=== PATIENT | female | born 1940 | race Two or more races ===

== ENCOUNTER 2017-01-16 08:28 | Inpatient (IN) | payer MEDICARE, MEDICAID ==
[~2017-01-16] VITALS: Ht 162.6 cm; Wt 93.4 kg
[~2017-01-16 08:28] MED LIST: BENA40TA67 PO; CARV6.252 PO; FURO-144 PO; INSU100I4 SQ; INSU10VI3 SQ; ISOS30TA6 PO; LIRA0.6P SQ; SPIR50TA PO; WARF6TAB5 PO
[2017-01-16] MEDS ORDERED: FUROSEMIDE 40 MG/4 ML VIAL ONE (08:40)
[2017-01-16] MEDS ORDERED: NITROGLYCERIN PACKET 1 GM PACKET ONE (08:40)
[2017-01-16] MEDS ORDERED: NITROGLYCERIN PACKET 1 GM PACKET TD ONE (09:00)
[2017-01-16] MEDS ORDERED: FUROSEMIDE 40 MG/4 ML VIAL IV ONE (09:00)
[2017-01-16] MEDS ORDERED: INSU100I14 SQ (09:02)
[2017-01-16] MEDS ORDERED: GABA-532 PO (09:02)
[2017-01-16] MEDS ORDERED: CARV12.52 PO (09:02)
[2017-01-16] MEDS ORDERED: WARF1TAB6 PO (09:02)
[2017-01-16] MEDS ORDERED: INSU3INS6 SQ (09:02)
[2017-01-16 09:05] LABS: BASOPHILS % (AUTO) 0.3 % (0.0-2.0); EOSINOPHILS # (AUTO) 0.1 /CMM (0.0-0.7); EOSINOPHILS % (AUTO) 1.3 % (0.0-6.0); HEMATOCRIT 34 % (33-45); HEMOGLOBIN 11.3 g/dL (11.5-14.8); LYMPHOCYTES # (AUTO) 0.7 /CMM (0.8-4.8); LYMPHOCYTES % (AUTO) 12.4 % (20.0-44.0); MEAN CORPUSCULAR HEMOGLOBIN 29 PG (26.0-33.0); MEAN CORPUSCULAR HGB CONC 34 g/dl (31.0-36.0); MEAN CORPUSCULAR VOLUME 87 fL (82-100); MONOCYTES # (AUTO) 0.3 /CMM (0.1-1.30); MONOCYTES % (AUTO) 5.1 % (2.0-12.0); NEUTROPHILS # (AUTO) 4.9 /CMM (1.8-8.9); NEUTROPHILS % (AUTO) 80.9 % (43.0-81.0); PLATELET COUNT (AUTO) 141 /CMM (150-450); RDW COEFFICIENT OF VARIATION 14.8 (11.5-15.0); RED BLOOD CELL COUNT(AUTO) 3.85 MIL/uL (4.0-5.2)
[2017-01-16 09:19] LABS: CALCIUM, SERUM 9.2 mg/dL (8.5-10.1); CARBON DIOXIDE 25 mmol/L (21-32); CHLORIDE 106 mmol/L (98-107); GLUCOSE 156 mg/dL (74-106); POTASSIUM 4.3 mmol/L (3.5-5.1); SODIUM SERUM 142 mmol/L (136-145); UREA NITROGEN, BLOOD 34 mg/dL (7-18)
[2017-01-16 09:23] LABS: INR 1.03 (0.87-1.13); PROTHROMBIN TIME 10.7 SECS (9.5-12.7)
[2017-01-16 09:27] LABS: TROPONIN I < 0.017 ng/mL (0.00-0.056)
[2017-01-16 09:32] LABS: ALANINE AMINOTRANSFERASE 28 U/L (12-78); ALBUMIN 3.6 g/dL (3.4-5.0); ALKALINE PHOSPHATASE 56 U/L (46-116); ASPARTATE AMINOTRANSFERASE 21 U/L (15-37); B-TYPE NATRIURETIC PEPTIDE 1291 PG/ML (0-125); BILIRUBIN,DIRECT 0.2 mg/dL (0.0-0.2); BILIRUBIN,TOTAL 0.7 mg/dL (0.2-1.0); TOTAL PROTEIN, SERUM 6.9 g/dL (6.4-8.2)
[2017-01-16 11:10] VITALS: BP 140/50
[2017-01-16] MEDS ORDERED: WARFARIN SODIUM 1 MG TABLET PO SCH (13:00)
[2017-01-16 13:30] LABS: MAGNESIUM 1.9 mg/dL (1.8-2.4)
[2017-01-16 13:44] LABS: THYROID STIMULATING HORMONE 1.752 uIU/mL (0.358-3.74)
[2017-01-16] MEDS: GABAPENTIN 100 MG CAPSULE PO SCH ×2 (15:22→17:11)
[2017-01-16] MEDS: FUROSEMIDE 40 MG TABLET PO SCH (17:11)
[2017-01-16] MEDS: BLOOD SUGAR DIAGNOSTIC 1 EACH STRIP VI SCH ×2 (17:19→22:00)
[2017-01-16] MEDS ORDERED: *INSULIN REGULAR(HUMULIN R)HUM 100 UNIT/ML VIAL SQ PRN (17:30)
[2017-01-16] MEDS ORDERED: DEXTROSE 50%-WATER 50 ML DISP.SYRIN IV PRN (17:30)
[2017-01-16] MEDS: INSULIN REGULAR, HUMAN 100 UNIT/ML 3 ML VIAL SQ PRN (18:32)
[2017-01-16 20:00] VITALS: BP_SYST 148; BP_SYST 156; BP_DIAS 68; BP_DIAS 95
[2017-01-17] VITALS: BP 128/88
[2017-01-17 04:00] VITALS: BP_SYST 102; BP_SYST 161; BP_DIAS 61; BP_DIAS 68
[2017-01-17 05:00] VITALS: BP 161/68
[2017-01-17] MEDS: BLOOD SUGAR DIAGNOSTIC 1 EACH STRIP VI SCH ×2 (06:16→12:22)
[2017-01-17] MEDS: INSULIN REGULAR, HUMAN 100 UNIT/ML 3 ML VIAL SQ PRN ×2 (06:18→12:41)
[2017-01-17 06:34] LABS: BASOPHILS % (AUTO) 0.3 % (0.0-2.0); EOSINOPHILS # (AUTO) 0.2 /CMM (0.0-0.7); EOSINOPHILS % (AUTO) 3.5 % (0.0-6.0); HEMATOCRIT 32 % (33-45); HEMOGLOBIN 10.7 g/dL (11.5-14.8); LYMPHOCYTES # (AUTO) 1.1 /CMM (0.8-4.8); LYMPHOCYTES % (AUTO) 26.2 % (20.0-44.0); MEAN CORPUSCULAR HEMOGLOBIN 30 PG (26.0-33.0); MEAN CORPUSCULAR HGB CONC 34 g/dl (31.0-36.0); MEAN CORPUSCULAR VOLUME 88 fL (82-100); MONOCYTES # (AUTO) 0.4 /CMM (0.1-1.30); MONOCYTES % (AUTO) 9.9 % (2.0-12.0); NEUTROPHILS # (AUTO) 2.6 /CMM (1.8-8.9); NEUTROPHILS % (AUTO) 60.1 % (43.0-81.0); PLATELET COUNT (AUTO) 132 /CMM (150-450); RDW COEFFICIENT OF VARIATION 14.7 (11.5-15.0); RED BLOOD CELL COUNT(AUTO) 3.62 MIL/uL (4.0-5.2); WHITE BLOOD COUNT (AUTO) 4.3 K/uL (4.3-11.0)
[2017-01-17 06:43] LABS: INR 1.05 (0.87-1.13); PROTHROMBIN TIME 10.9 SECS (9.5-12.7)
[2017-01-17 06:47] LABS: CALCIUM, SERUM 8.7 mg/dL (8.5-10.1); CARBON DIOXIDE 28 mmol/L (21-32); CHLORIDE 104 mmol/L (98-107); CREATININE 0.9 mg/dL (0.6-1.3); GLUCOSE 84 mg/dL (74-106); POTASSIUM 4.1 mmol/L (3.5-5.1); SODIUM SERUM 140 mmol/L (136-145); UREA NITROGEN, BLOOD 39 mg/dL (7-18)
[2017-01-17 08:00] VITALS: BP 154/73
[2017-01-17 09:00] VITALS: BP 154/73
[2017-01-17] MEDS ORDERED: SPIRONOLACTONE 25 MG TABLET PO SCH (09:00)
[2017-01-17] MEDS: FUROSEMIDE 40 MG TABLET PO SCH (09:00)
[2017-01-17] MEDS ORDERED: FUROSEMIDE 40 MG TABLET PO SCH (09:00)
[2017-01-17] MEDS ORDERED: ISOSORBIDE MONONITRATE (30MG) 30 MG TAB.SR.24H PO SCH (09:00)
[2017-01-17] MEDS: GABAPENTIN 100 MG CAPSULE PO SCH ×2 (09:00→13:21)
[2017-01-17] MEDS ORDERED: AMLODIPINE BESYLATE 5 MG TABLET PO SCH (09:00)
[2017-01-17] MEDS ORDERED: FUROSEMIDE 20 MG/2 ML VIAL IV SCH (14:00)
[2017-01-17] MEDS ORDERED: BENAZEPRIL HCL 20 MG TABLET PO SCH (17:00)
[2017-01-17] MEDS ORDERED: WARFARIN SODIUM 1 MG TABLET PO SCH (17:00)
[2017-01-18] MEDS ORDERED: FUROSEMIDE 40 MG TABLET PO SCH (09:00)
== END 2017-01-17 15:15 | disposition short-term general hospital (02) | DRG 194 ==
LOC: ER 08:31 → TELE 10:35 → MED 01-17 11:40
PROVIDERS: ADMIT Family Medicine; ATTEND Internal Medicine
DX: I13.0 Hypertensive heart and chronic kidney disease with heart failure and stage 1 through stage 4 chronic kidney disease, or unspecified chronic kidney disease (principal); E11.22 Type 2 diabetes mellitus with diabetic chronic kidney disease; I27.20 Pulmonary hypertension, unspecified; M81.0 Age-related osteoporosis without current pathological fracture; I50.33 Acute on chronic diastolic (congestive) heart failure; I48.2 Chronic atrial fibrillation; Z79.01 Long term (current) use of anticoagulants; N18.9 Chronic kidney disease, unspecified; Z86.73 Personal history of transient ischemic attack (TIA), and cerebral infarction without residual deficits; Z95.0 Presence of cardiac pacemaker; Z86.718 Personal history of other venous thrombosis and embolism; E78.5 Hyperlipidemia, unspecified; D63.8 Anemia in other chronic diseases classified elsewhere; I34.0 Nonrheumatic mitral (valve) insufficiency; Z79.4 Long term (current) use of insulin; Z85.3 Personal history of malignant neoplasm of breast; Z90.11 Acquired absence of right breast and nipple; Z79.899 Other long term (current) drug therapy
CPT/HCPCS: 36415; 71010-TC; 80048-TC; 80076-TC; 82962-TC; 83540-TC; 83735-TC; 83880; 84443-TC; 84484-TC; 85025-TC; 85610-TC; 85730-TC; 87081-TC; A4606; J1815; J1940; Z7610

== ENCOUNTER 2017-05-13 19:34 | Inpatient (IN) | payer MEDICARE, MEDICAID ==
[~2017-05-13] VITALS: Ht 160 cm; Wt 75.3 kg
[~2017-05-13 19:34] MED LIST changes: +CARV12.52 PO; -CARV6.252 PO; +GABA-532 PO; +INSU100I14 SQ; -INSU100I4 SQ; -INSU10VI3 SQ; +INSU3INS6 SQ; -LIRA0.6P SQ; +WARF1TAB86 PO; -WARF6TAB5 PO
--- NOTE | 2017-05-13 19:48 | NUR ---
77 YO FEMALE BB DAUGHTER. PATIENT IS ALERT AND ORIENTED X 3, C/O SOB, GRADUAL ONSET X 1 DYA. PATIENT AMBULATED TO ER BED WITJ STEADY GAIT, SKIN WARM AND DRY, RESP EVEN AND UNLABORED. AWAITING ORDERS FROM PROVIDER, WILL CONTINUE TO MONITOR
--- NOTE | 2017-05-13 19:49 | NUR ---
RAY AT BED SIDE FOR EVAL
[2017-05-13] MEDS ORDERED: FUROSEMIDE 40 MG/4 ML VIAL IV ONE (20:00)
[2017-05-13] MEDS ORDERED: ASPIRIN 81 MG TAB.CHEW PO ONE (20:00)
[2017-05-13] MEDS ORDERED: ASPIRIN 81 MG TAB.CHEW ONE (20:05)
[2017-05-13] MEDS ORDERED: FUROSEMIDE 40 MG/4 ML VIAL ONE (20:05)
[2017-05-13 20:09] LABS: BASOPHILS % (AUTO) 0.2 % (0.0-2.0); EOSINOPHILS # (AUTO) 0.1 /CMM (0.0-0.7); EOSINOPHILS % (AUTO) 2.8 % (0.0-6.0); HEMATOCRIT 30 % (33-45); HEMOGLOBIN 10.6 g/dL (11.5-14.8); LYMPHOCYTES # (AUTO) 0.9 /CMM (0.8-4.8); LYMPHOCYTES % (AUTO) 18.3 % (20.0-44.0); MEAN CORPUSCULAR HEMOGLOBIN 30 PG (26.0-33.0); MEAN CORPUSCULAR HGB CONC 36 g/dl (31.0-36.0); MEAN CORPUSCULAR VOLUME 84 fL (82-100); MONOCYTES # (AUTO) 0.5 /CMM (0.1-1.30); MONOCYTES % (AUTO) 10.6 % (2.0-12.0); NEUTROPHILS # (AUTO) 3.2 /CMM (1.8-8.9); NEUTROPHILS % (AUTO) 68.1 % (43.0-81.0); PLATELET COUNT (AUTO) 161 /CMM (150-450); RDW COEFFICIENT OF VARIATION 13.7 (11.5-15.0); RED BLOOD CELL COUNT(AUTO) 3.55 MIL/uL (4.0-5.2); WHITE BLOOD COUNT (AUTO) 4.7 K/uL (4.3-11.0)
--- NOTE | 2017-05-13 20:14 | NUR ---
MEDICATED OT ORTDERED
[2017-05-13 20:26] LABS: INR 1.06 (0.85-1.15)
[2017-05-13 20:30] LABS: TROPONIN I < 0.017 ng/mL (0.00-0.056)
[2017-05-13 20:39] LABS: CALCIUM, SERUM 9.3 mg/dL (8.5-10.1); CARBON DIOXIDE 22 mmol/L (21-32); CHLORIDE 105 mmol/L (98-107); CREATININE 1.2 mg/dL (0.6-1.3); GLUCOSE 236 mg/dL (74-106); POTASSIUM 5.1 mmol/L (3.5-5.1); SODIUM SERUM 137 mmol/L (136-145); UREA NITROGEN, BLOOD 40 mg/dL (7-18)
[2017-05-13 20:54] LABS: ALANINE AMINOTRANSFERASE 17 U/L (12-78); ALBUMIN 3.6 g/dL (3.4-5.0); ALKALINE PHOSPHATASE 64 U/L (46-116); ASPARTATE AMINOTRANSFERASE 17 U/L (15-37); B-TYPE NATRIURETIC PEPTIDE 1815 PG/ML (0-125); BILIRUBIN,DIRECT 0.2 mg/dL (0.0-0.2); BILIRUBIN,TOTAL 0.4 mg/dL (0.2-1.0); TOTAL PROTEIN, SERUM 7.3 g/dL (6.4-8.2)
--- NOTE | 2017-05-13 20:54 | NUR ---
VITAL SIGNS UPDATED.
--- NOTE | 2017-05-13 21:40 | NUR ---
CALLED DR AGOSTO LEFT A VOICEMAIL.
--- NOTE | 2017-05-13 22:20 | NUR ---
REPORT RECEIVED FROM SUNDEEP CHAMBERS.
--- NOTE | 2017-05-13 22:25 | NUR ---
REPORT WAS GIVEN TO ELOISA URBANO FOR RILEY
[2017-05-13 22:30] VITALS: BP 185/79
--- NOTE | 2017-05-13 22:30 | NUR ---
EDUCATION SALES CONSULTANT OPENING NOTE RECEIVED PATIENT FROM ER, WAS TRANSPORTED ON A GURNEY, WAS ABLE TO AMBULATE TO BED FROM THE BEDROOM DOOR. PATIENT IS IN STABLE CONDITION, ALERT ORIENTED X4, PORTUGUESE SPEAKING, PATIENT WAS ASSISTED INTO BED AND WAS MADE COMFORTABLE. PATIENT REPORTED BEING SLIGHTLY SOB. WAS PLACED ON 2L OXYGEN VIA NC. DENIES PAIN. VITAL SIGNS TAKEN: BP: 185/79, HR:61, RR:18, TEMP: 98.2, O2SAT: 97%. NON-PITTING EDEMA ON BILATERAL LOWER EXTREMITIES. PATIENT WAS PLACED ON TELE MONITORING ORDERED. FAMILY AT BEDSIDE, ALL BELONGINGS IN PLACE. WILL ADMIT PATIENT PER MD ORDERS AND CONTINUE TO MONITOR.
--- NOTE | 2017-05-13 22:32 | NUR ---
TRANSPORTED PT TO TELE BED WITHOUT INCIDENT
[2017-05-13] MEDS ORDERED: ACETAMINOPHEN 650 MG/20.3 ML UDC PO PRN (23:00)
[2017-05-13] MEDS ORDERED: DEXTROSE 50%-WATER 50 ML DISP.SYRIN IV PRN (23:00)
[2017-05-13] MEDS ORDERED: CLONIDINE HCL 0.1 MG TABLET PO PRN (23:00)
[2017-05-13] MEDS ORDERED: ZOLPIDEM TARTRATE 5 MG TABLET PO PRN (23:00)
--- NOTE | 2017-05-13 23:24 | NUR ---
SPOKE TO DR. AGOSTO TO CLARIFY THE PARAMETERS FOR CLONIDINE, TO BE GIVEN FOR SBP>160mmHg. RECEIVED NEW ORDER FOR ACCU-CHECK ACHS WITH MODERATE SLIDING SCALE.
[2017-05-13] MEDS ORDERED: BLOOD SUGAR DIAGNOSTIC 1 EACH STRIP VI SCH (23:30)
[2017-05-13] MEDS: BLOOD SUGAR DIAGNOSTIC 1 EACH STRIP VI SCH (23:31)
[2017-05-13] MEDS: *INSULIN REGULAR(HUMULIN R)HUM 100 UNIT/ML VIAL SQ PRN (23:47)
[2017-05-14] VITALS (7 sets, daily range): BP systolic 137–185; BP diastolic 54–90
[2017-05-14 06:49] LABS: BASOPHILS % (AUTO) 0.4 % (0.0-2.0); EOSINOPHILS # (AUTO) 0.1 /CMM (0.0-0.7); EOSINOPHILS % (AUTO) 1.7 % (0.0-6.0); HEMATOCRIT 27 % (33-45); HEMOGLOBIN 9.3 g/dL (11.5-14.8); LYMPHOCYTES % (AUTO) 24.5 % (20.0-44.0); MEAN CORPUSCULAR HEMOGLOBIN 30 PG (26.0-33.0); MEAN CORPUSCULAR HGB CONC 34 g/dl (31.0-36.0); MEAN CORPUSCULAR VOLUME 87 fL (82-100); MONOCYTES # (AUTO) 0.5 /CMM (0.1-1.30); MONOCYTES % (AUTO) 12.7 % (2.0-12.0); NEUTROPHILS # (AUTO) 2.4 /CMM (1.8-8.9); NEUTROPHILS % (AUTO) 60.7 % (43.0-81.0); PLATELET COUNT (AUTO) 154 /CMM (150-450); RDW COEFFICIENT OF VARIATION 14.7 (11.5-15.0); RED BLOOD CELL COUNT(AUTO) 3.12 MIL/uL (4.0-5.2)
[2017-05-14 07:09] LABS: THYROID STIMULATING HORMONE 2.05 uIU/mL (0.358-3.74)
--- NOTE | 2017-05-14 07:25 | NUR ---
FOURTH GRADE TEACHER NOTES PATIENT BLOOD SUGAR CHECKED WITH READING AT 64. CRANBERRY JUICE GIVEN, BREAKFAST AT BEDSIDE. AM NURSE AWARE, SHE WILL RECHECK IN 10-15 MINUTES.
--- NOTE | 2017-05-14 07:30 | NUR ---
HAND WRAPPER OPERATOR CLOSING NOTE PATIENT IN BED, ASLEEP, AROUSED EASILY WITH VERBAL STIMULI, ORIENTED X4. ON 2L OXYGEN VIA NC, DENIES SOB AT THIS TIME, RESPIRATIONS EVEN AND UNLABORED, NO SIGN OF ACUTE DISTRESS OR DISCOMFORT. HOB ELEVATED. ON TELE MONITOR V-PACING IN 60S. LEFT WRIST SL 20G, PATENT AND INTACT. PATIENT KEPT CLEAN AND COMFORTABLE, ALL NEEDS ATTENDED, SAFETY MEASURES IN PLACE, BED IN LOW LOCKED POSITION, CALL LIGHT WITHIN EASY REACH, SIDE RAILS UP X2. WILL ENDORSE TO AM NURSE FOR CONTINUITY OF CARE.
--- NOTE | 2017-05-14 07:40 | NUR ---
LEAVE SPECIALIST OPENING NOTE PATIENT IS ALERT AND ORIENTED x4. NO PAIN AT THIS TIME. NO SOB OR DISTRESS NOTED. CALL LIGHT WITHIN REACH. SAFETY MEASURES IMPLEMENTED. ABLE TO COMMUNICATE NEEDS. IV INTACT AND PATENT NO REDNESS OR SWELLING NOTED. BLOOD SUGARS TO BE MONITORED THROUGHOUT SHIFT. LABS PENDING. WILL CONTINUE TO MONITOR
[2017-05-14] MEDS: BLOOD SUGAR DIAGNOSTIC 1 EACH STRIP VI SCH ×4 (07:45→21:09)
--- NOTE | 2017-05-14 07:45 | NUR ---
MILKING MACHINE OPERATOR NOTE RECHECKED PATIENT'S BLOOD SUGAR AFTER CRANBERRY JUICE AND BREAKFAST WAS GIVEN. BLOOD SUGAR NOW 172. MD AWARE AND CHARGE NURSE AWARE. WILL CONTINUE TO MONITOR
[2017-05-14] MEDS: FUROSEMIDE 40 MG/4 ML VIAL IV SCH ×2 (08:39→16:39)
[2017-05-14] MEDS ORDERED: AMLODIPINE BESYLATE 5 MG TABLET PO SCH (09:00)
[2017-05-14] MEDS: GABAPENTIN 100 MG CAPSULE PO SCH ×3 (09:49→16:39)
[2017-05-14] MEDS: CARVEDILOL 12.5 MG TABLET PO SCH ×2 (09:50→16:39)
[2017-05-14] MEDS: INSULIN REGULAR, HUMAN 100 UNIT/ML 3 ML VIAL SQ PRN (11:56)
--- NOTE | 2017-05-14 12:00 | NUR ---
SUPERVISOR GAME FARM NOTE BLOOD SUGAR CHECKED-229. 6 UNITS OF INSULIN GIVEN FOOD AT BEDSIDE. WILL CONTINUE TO MONITOR FOR HYPO/HYPERGLYEMIA S/S.
--- NOTE | 2017-05-14 16:51 | NUR ---
PROBATION WORKER NOTE PATIENTS BLOOD SUGAR CHECKED-133 PATIENT REFUSED INSULIN AT THIS TIME. EXPLAINED RISKS AND BENEFITS AND SIGNS AND SYMPTOMS OF HYPO/HYPERGLYCEMIA
[2017-05-14] MEDS ORDERED: WARFARIN SODIUM 1 MG TABLET PO SCH (17:00)
--- NOTE | 2017-05-14 18:48 | NUR ---
MS RN CLOSING NOTE PATIENT IS RESTING COMFORTABLY AT THIS TIME. NO SOB OR DISTRESS NOTED. CALL LIGHT WITHIN REACH AT ALL TIMES. SAFETY MEASURES IMPLEMENTED. ALL DUE MEDICATIONS GIVEN ORDERED. ALL NURSING CARE NEEDS ATTENDED TO NEEDED. ABLE TO COMMUNICATE NEEDS. IV INTACT AND PATENT NO REDNESS OR SWELLING NOTED. BLOOD SUGAR MONITORED THROUGHOUT SHIFT, INSULIN GIVEN NEEDED. ON 2LMIN OF OXYGEN VIA NASAL CANNULA TOLERATING WELL. LABS IN AM, PENDING WOUND CARE CONSULT. WILL ENDORSE TO MACHINIST/MACHINE BUILDER NURSE FOR RILEY
--- NOTE | 2017-05-14 20:00 | NUR ---
MS/RN OPENING NOTE 'PATIENT IN BED, ALERT, ORIENTED X3, ABLE TO VERBALIZE NEEDS, RESPIRATIONS EVEN , REQUIRING FREQUENT REMINDER TO KEEP OXYGEN ON FOR PROPER BREATHING AND PREVENT SOB. ABLE TO WALK WITH SUPERVISION TO THE BATHROOM, LEFT WRIST IV ON PATENT, AM RN ENDORSE PLAN OF CARE WILL CONTINUE CARE AND MONITOR ANY CHANGES. BED IN LOCK POSITION, CALL LIGHTS WIHTIN REACH, KEEP PATIENT COMFORTABLE, ALL NEEDS WITHIN REACH.INSTRUCTED TO USE CALL LIGHT FOR ASSISTANCE.
[2017-05-14] MEDS: *INSULIN REGULAR(HUMULIN R)HUM 100 UNIT/ML VIAL SQ PRN (21:16)
[2017-05-15] MEDS: BLOOD SUGAR DIAGNOSTIC 1 EACH STRIP VI SCH ×4 (06:01→22:29)
--- NOTE | 2017-05-15 06:44 | NUR ---
312-1 MS/RN NOTES PATIENT ABLE TO SLEEP DURING THE NIGHT, KEEP COMFORTABLE, BED IN LOCK POSITION, CALL LIGHTS WITHIN REACH, MONITOR S/S OF HYPO/HYPERGLYCEMIA.ON OXYGEN AT 2L VIA NASAL CANULA, WILL ENDORSE TO AM RN FOR RILEY.
[2017-05-15 06:59] LABS: BASOPHILS % (AUTO) 0.3 % (0.0-2.0); EOSINOPHILS # (AUTO) 0.1 /CMM (0.0-0.7); EOSINOPHILS % (AUTO) 3.2 % (0.0-6.0); HEMATOCRIT 29 % (33-45); HEMOGLOBIN 9.7 g/dL (11.5-14.8); LYMPHOCYTES % (AUTO) 25.8 % (20.0-44.0); MEAN CORPUSCULAR HEMOGLOBIN 29 PG (26.0-33.0); MEAN CORPUSCULAR HGB CONC 34 g/dl (31.0-36.0); MEAN CORPUSCULAR VOLUME 87 fL (82-100); MONOCYTES # (AUTO) 0.4 /CMM (0.1-1.30); MONOCYTES % (AUTO) 11.5 % (2.0-12.0); NEUTROPHILS # (AUTO) 2.2 /CMM (1.8-8.9); NEUTROPHILS % (AUTO) 59.2 % (43.0-81.0); PLATELET COUNT (AUTO) 158 /CMM (150-450); RDW COEFFICIENT OF VARIATION 14.6 (11.5-15.0); RED BLOOD CELL COUNT(AUTO) 3.32 MIL/uL (4.0-5.2); WHITE BLOOD COUNT (AUTO) 3.8 K/uL (4.3-11.0)
[2017-05-15 07:18] LABS: CALCIUM, SERUM 8.5 mg/dL (8.5-10.1); CARBON DIOXIDE 27 mmol/L (21-32); CHLORIDE 104 mmol/L (98-107); CREATININE 1.2 mg/dL (0.6-1.3); GLUCOSE 126 mg/dL (74-106); POTASSIUM 4.4 mmol/L (3.5-5.1); SODIUM SERUM 139 mmol/L (136-145); UREA NITROGEN, BLOOD 34 mg/dL (7-18)
--- NOTE | 2017-05-15 07:41 | NUR ---
MS/RN OPENING NOTE PATIENT IN BED IN STABLE CONDITION. A/O X 4. NO SIGNS OF ACUTE DISTRESS. NO COMPLAIN OF PAIN OR DISCOMFORT. ALL NEEDS ATTENDED TO. CALL LIGHT WITHIN REACH. WILL CONTINUE TO MONITOR TO ENSURE SAFETY.
[2017-05-15 08:00] VITALS: BP 133/60
[2017-05-15] MEDS: GABAPENTIN 100 MG CAPSULE PO SCH ×3 (08:31→16:05)
[2017-05-15] MEDS: CARVEDILOL 12.5 MG TABLET PO SCH ×2 (08:31→16:05)
[2017-05-15] MEDS: FUROSEMIDE 40 MG/4 ML VIAL IV SCH ×4 (08:31→20:22)
[2017-05-15] MEDS: AMLODIPINE BESYLATE 5 MG TABLET PO SCH (08:32)
[2017-05-15 09:00] LABS: INR 1.04 (0.87-1.13)
--- NOTE | 2017-05-15 09:30 | NUR ---
MS/RN SPOKE WITH DR AGOSTO RECEIVED CALL FROM DR AGOSTO AND PER DR AGOSTO PATIENT IS MEDICAL AND NOT [facility] THEREFORE TRANSFER SERVICES TO [facility]. DR [place] AWARE.
[2017-05-15] MEDS: INSULIN REGULAR, HUMAN 100 UNIT/ML 3 ML VIAL SQ PRN ×2 (11:58→17:28)
[2017-05-15 16:00] VITALS: BP 127/68
[2017-05-15] MEDS: WARFARIN SODIUM 5 MG TABLET PO SCH (16:05)
--- NOTE | 2017-05-15 18:20 | NUR ---
MS/RN CLOSING NOTE PATIENT IN BED IN STABLE CONDITION. A/O X 4, BANGLADESHI SPEAKING. NO SIGNS OF ACUTE DISTRESS. NO COMPLAIN OF PAIN OR DISCOMFORT. ALL NEEDS ATTENDED TO. CALL LIGHT WITHIN REACH. WILL ENDORSE TO NEXT SHIFT FOR CONTINUITY OF CARE.
--- NOTE | 2017-05-15 19:30 | NUR ---
MS RN NOTE: PATIENT RESTING IN BED, FAMILY AT BEDSIDE. BREATHING EVEN AND UNLABORED, NO SOB NOTED. IV TO LEFT WRIST IN PLACE. PATIENT TO RECEIVE 3RD DOSE OF LASIX 40MG IV PER MD ORDER. INSTRUCTED PATIENT THAT SHE WILL BE USING THE RESROOM MORE FREQUENT AND TO ASK FOR ASSISTANCE OR USE WALKER WHEN GOING TO BATHROOM Addendum: 05/15/17 at 2007 by EDUIN LOPEZ RN BED LOCKED AND IN LOWEST POSITION, CALL LIGHT IN REACH WILL CONTINUE TO MONITOR.
[2017-05-15 20:18] VITALS: BP 125/54
--- NOTE | 2017-05-15 22:30 | NUR ---
MS RN NOTE: PATIENT BLOOD SUGAR LEVEL 151MG/DL, PATIENT TO RECEIVE 2 UNITS OF INSULIN PER SLIDING SCALE. NO S/S HYPER/HYPOGLYCEMIA NOTED. WILL CONTINUE TO MONITOR.
[2017-05-15] MEDS: *INSULIN REGULAR(HUMULIN R)HUM 100 UNIT/ML VIAL SQ PRN (22:35)
--- NOTE | 2017-05-16 06:20 | NUR ---
MS RN NOTE: PATIENT RESTING IN BED, NO ACUTE DISTRESS NOTED. BREATHING EVEN AND UNLABORED, NO SOB NOTED. IV TO LEFT WRIST IN PLACE. BLOOD SUGAR LEVEL 143 MG/DL, PATIENT TO RECEIVE 2 UNITS OF INSULIN PER SLIDING SCALE. NO S/S OF HYPER/HYPOGLYCEMIA NOTED. BED LOCKED AND IN LOWEST POSITION, CALL LIGHT IN REACH. WILL ENDORSE TO DAY NURSE TO CONTINUE WITH PLAN OF CARE.
[2017-05-16 06:29] LABS: BASOPHILS % (AUTO) 0.4 % (0.0-2.0); EOSINOPHILS # (AUTO) 0.1 /CMM (0.0-0.7); EOSINOPHILS % (AUTO) 1.7 % (0.0-6.0); HEMATOCRIT 29 % (33-45); HEMOGLOBIN 10.1 g/dL (11.5-14.8); LYMPHOCYTES # (AUTO) 1.1 /CMM (0.8-4.8); LYMPHOCYTES % (AUTO) 24.4 % (20.0-44.0); MEAN CORPUSCULAR HEMOGLOBIN 30 PG (26.0-33.0); MEAN CORPUSCULAR HGB CONC 35 g/dl (31.0-36.0); MEAN CORPUSCULAR VOLUME 87 fL (82-100); MONOCYTES # (AUTO) 0.6 /CMM (0.1-1.30); MONOCYTES % (AUTO) 12.6 % (2.0-12.0); NEUTROPHILS # (AUTO) 2.9 /CMM (1.8-8.9); NEUTROPHILS % (AUTO) 60.9 % (43.0-81.0); PLATELET COUNT (AUTO) 165 /CMM (150-450); RDW COEFFICIENT OF VARIATION 13.9 (11.5-15.0); RED BLOOD CELL COUNT(AUTO) 3.39 MIL/uL (4.0-5.2); WHITE BLOOD COUNT (AUTO) 4.7 K/uL (4.3-11.0)
[2017-05-16 06:36] LABS: INR 1.02 (0.87-1.13)
[2017-05-16] MEDS: BLOOD SUGAR DIAGNOSTIC 1 EACH STRIP VI SCH ×4 (06:36→22:20)
[2017-05-16] MEDS: INSULIN REGULAR, HUMAN 100 UNIT/ML 3 ML VIAL SQ PRN ×3 (06:37→16:48)
[2017-05-16 06:43] LABS: ALANINE AMINOTRANSFERASE 17 U/L (12-78); ALBUMIN 3.3 g/dL (3.4-5.0); ALKALINE PHOSPHATASE 47 U/L (46-116); ASPARTATE AMINOTRANSFERASE 13 U/L (15-37); BILIRUBIN,TOTAL 0.4 mg/dL (0.2-1.0); CALCIUM, SERUM 8.9 mg/dL (8.5-10.1); CARBON DIOXIDE 29 mmol/L (21-32); CHLORIDE 101 mmol/L (98-107); CREATININE 1.2 mg/dL (0.6-1.3); GLUCOSE 144 mg/dL (74-106); MAGNESIUM 1.5 mg/dL (1.8-2.4); PHOSPHORUS 4.4 mg/dL (2.5-4.9); POTASSIUM 4.2 mmol/L (3.5-5.1); SODIUM SERUM 140 mmol/L (136-145); TOTAL PROTEIN, SERUM 6.8 g/dL (6.4-8.2); UREA NITROGEN, BLOOD 41 mg/dL (7-18)
[2017-05-16 08:00] VITALS: BP 132/70
--- NOTE | 2017-05-16 08:00 | NUR ---
MS RN NOTES PATIENT IN BED RESTING NO SOB OR ACUTE DISTRESS NOTED. PERIPHERAL IV INTACT PATENT ON LEFT WRIST. BED IN LOW LOCKED POSITION. CALL LIGHT WITHIN REACH. WILL CONTINUE TO MONITOR.
[2017-05-16] MEDS: CARVEDILOL 12.5 MG TABLET PO SCH ×2 (09:25→16:42)
[2017-05-16] MEDS: GABAPENTIN 100 MG CAPSULE PO SCH ×3 (09:25→16:42)
[2017-05-16] MEDS: AMLODIPINE BESYLATE 5 MG TABLET PO SCH (09:26)
--- NOTE | 2017-05-16 10:00 | NUR ---
MS RN NOTES PATIENT SEEN AND EVALUATED BY DR. PEDRO ORDERS NOTED AND CARRIED OUT.
--- NOTE | 2017-05-16 10:28 | NUR ---
WOUND CARE CONSULT: PT IS AMBULATORY AND CONTINENT WITH CURRENT BOB SCORE OF 21. SLIGHT REDNESS TO RT ANTERIOR LOWER LEG WITH PROMINENT VEINS NOTED. PER PT REDNESS IS RESOLVING. DEFER TO . WILL SEE PRN. Addendum: 05/16/17 at 1029 by FLO HANDY WNDNU Amended: Links added.
[2017-05-16] MEDS ORDERED: Z GUARD REMEDY 2 OZ OINT TP PRN (10:30)
[2017-05-16] MEDS: Magnesium 1GM/D5W 100ML PREMIX 100 ML IV SCH ×2 (10:52→12:26)
[2017-05-16] MEDS: FUROSEMIDE 100 MG/10 ML VIAL IV SCH ×3 (10:52→19:21)
[2017-05-16 16:00] VITALS: BP 135/65
[2017-05-16] MEDS: WARFARIN SODIUM 5 MG TABLET PO SCH (16:43)
--- NOTE | 2017-05-16 18:18 | NUR ---
MS RN NOTES PATIENT IN BED RESTING NO SOB OR ACUTE DISTRESS NOTED. ALL DUE MEDICATIONS ADMINISTERED. ALL NEEDS MET. PERIPHERAL IV INTACT PATENT. WILL ENDORSE TO PM SHIFT RILEY.
--- NOTE | 2017-05-16 19:30 | NUR ---
MS/RN RECEIVE PATIENT AWAKE, ALERT, ORIENTED, COMFORTABLE, NO C/O PAIN, NO DISTRESS NOTED,CALL LIGHT IN REACH. WILL MONITOR.
[2017-05-16 20:34] VITALS: BP 103/44
--- NOTE | 2017-05-16 21:30 | NUR ---
MS/RN BLOOD SUGAR 98, APPLE JUICE AND JELO WAS GIVEN PER PATIENT'S REQUEST. WILL MONITOR.
--- NOTE | 2017-05-16 23:00 | NUR ---
MS/RN PATIENT IS SLEEPING AT THIS TIME, EASILY AROUSABLE, APPEAR COMFORTABLE, NO SIGNS OF DISTRESS NOTED, CALL LIGHT IN REACH. WILL CONTINUE TO MONITOR.
[2017-05-17] MEDS: INSULIN REGULAR, HUMAN 100 UNIT/ML 3 ML VIAL SQ PRN ×3 (06:36→18:05)
[2017-05-17] MEDS: BLOOD SUGAR DIAGNOSTIC 1 EACH STRIP VI SCH ×4 (06:39→21:33)
--- NOTE | 2017-05-17 06:52 | NUR ---
MS/RN PATIENT AWAKE, COMFORTABLE,NO DISTRESS NOTED, ALL NEEDS ATTENDED AT THIS TIME. WILL CONTINUE TO MONITOR.
[2017-05-17 07:17] LABS: BASOPHILS % (AUTO) 0.5 % (0.0-2.0); EOSINOPHILS # (AUTO) 0.2 /CMM (0.0-0.7); EOSINOPHILS % (AUTO) 3.6 % (0.0-6.0); HEMATOCRIT 31 % (33-45); HEMOGLOBIN 10.6 g/dL (11.5-14.8); LYMPHOCYTES # (AUTO) 1.1 /CMM (0.8-4.8); LYMPHOCYTES % (AUTO) 22.7 % (20.0-44.0); MEAN CORPUSCULAR HEMOGLOBIN 29 PG (26.0-33.0); MEAN CORPUSCULAR HGB CONC 34 g/dl (31.0-36.0); MEAN CORPUSCULAR VOLUME 86 fL (82-100); MONOCYTES # (AUTO) 0.5 /CMM (0.1-1.30); NEUTROPHILS % (AUTO) 62.2 % (43.0-81.0); PLATELET COUNT (AUTO) 178 /CMM (150-450); RDW COEFFICIENT OF VARIATION 14.2 (11.5-15.0); RED BLOOD CELL COUNT(AUTO) 3.62 MIL/uL (4.0-5.2); WHITE BLOOD COUNT (AUTO) 4.9 K/uL (4.3-11.0)
[2017-05-17 07:35] LABS: ALANINE AMINOTRANSFERASE 15 U/L (12-78); ALBUMIN 3.4 g/dL (3.4-5.0); ALKALINE PHOSPHATASE 51 U/L (46-116); ASPARTATE AMINOTRANSFERASE 12 U/L (15-37); BILIRUBIN,TOTAL 0.5 mg/dL (0.2-1.0); CALCIUM, SERUM 8.8 mg/dL (8.5-10.1); CARBON DIOXIDE 30 mmol/L (21-32); CHLORIDE 100 mmol/L (98-107); CREATININE 1.4 mg/dL (0.6-1.3); GLUCOSE 165 mg/dL (74-106); PHOSPHORUS 4.5 mg/dL (2.5-4.9); SODIUM SERUM 139 mmol/L (136-145); TOTAL PROTEIN, SERUM 7.1 g/dL (6.4-8.2); UREA NITROGEN, BLOOD 52 mg/dL (7-18)
[2017-05-17 08:00] VITALS: BP 119/55
[2017-05-17 08:49] LABS: INR 1.03 (0.87-1.13)
[2017-05-17] MEDS: FUROSEMIDE 80 MG TABLET PO SCH (09:29)
[2017-05-17] MEDS: CARVEDILOL 12.5 MG TABLET PO SCH ×2 (09:29→17:00)
[2017-05-17] MEDS: GABAPENTIN 100 MG CAPSULE PO SCH ×3 (09:29→17:21)
[2017-05-17] MEDS: AMLODIPINE BESYLATE 5 MG TABLET PO SCH (10:30)
[2017-05-17 16:00] VITALS: BP 119/51
[2017-05-17] MEDS: WARFARIN SODIUM 5 MG TABLET PO SCH (17:21)
--- NOTE | 2017-05-17 19:30 | NUR ---
RN NOTES: PATIENT AOX4, ARGENTINE SPEAKING, UNDERSTANDS SOME ITALIAN.PATIENT STABLE THROUGHOUT SHIFT. DENIES PAIN AT THE MOMENT. ON ROOM AIR DURING SHIFT TOLERATED WELL WITH 93-96%. AMBULATED WELL WITH NO ADVERSE EFFECTS. IV SITE ON LEFT WRIST GAUGE 20 PATENT AND INTACT. PATIENT KEPT CLEAN AND COMFORTABLE DURING SHIFT. BED IN LOWEST LOCKED POSITION. CALL LIGHT WITHIN REACH. DISCUSSED WITH DAUGHTER IN LAW, MALACHI, DISCHARGE PLANNING TODAY. ENDORSED TO NEXT SHIFT
[2017-05-17 20:00] VITALS: BP 151/67
--- NOTE | 2017-05-17 20:00 | NUR ---
MS/RN RECEIVE PATIENT AWAKE, ALERT, ORIENTED, COMFORTABLE, NO C/O PAIN, NO DISTRESS NOTED, CALL LIGHT IN REACH. WILL MONITOR.
[2017-05-18] MEDS: INSULIN REGULAR, HUMAN 100 UNIT/ML 3 ML VIAL SQ PRN ×3 (06:38→16:38)
[2017-05-18] MEDS: BLOOD SUGAR DIAGNOSTIC 1 EACH STRIP VI SCH ×3 (06:48→16:42)
--- NOTE | 2017-05-18 07:00 | NUR ---
MS/RN PATIENT IS AWAKE, ALERT, COMFORTABLE, NO CHANGE IN CONDITION. HAD A GOOD SLEEP THE WHOLE SHIFT. ALL NEEDS ATTENDED. WILL CONTINUE TO MONITOR.
--- NOTE | 2017-05-18 07:30 | NUR ---
RN NOTES PATIENT AOX4, ESTONIAN SPEAKING, UNDERSTANDS SOME ERITREAN. DENIES PAIN AT THE MOMENT. ON ROOM AIR, RESPIRATIONS EVEN AND UNLABORED. IV SITE ON LEFT WRIST GAUGE 20 PATENT AND INTACT NO REDNESS OR INFILTRATION NOTED. PATIENT KEPT CLEAN AND COMFORTABLE. BED IN LOWEST LOCKED POSITION. CALL LIGHT WITHIN REACH. WILL CONTINUE TO MONITOR
[2017-05-18 08:00] VITALS: BP 127/64
[2017-05-18] MEDS: FUROSEMIDE 80 MG TABLET PO SCH (08:42)
[2017-05-18] MEDS: AMLODIPINE BESYLATE 5 MG TABLET PO SCH (08:42)
[2017-05-18] MEDS: GABAPENTIN 100 MG CAPSULE PO SCH ×3 (08:42→16:33)
[2017-05-18 08:48] VITALS: BP 127/64
[2017-05-18 08:48] LABS: INR 1.02 (0.87-1.13)
[2017-05-18] MEDS: CARVEDILOL 12.5 MG TABLET PO SCH ×2 (09:00→16:36)
[2017-05-18] MEDS ORDERED: SENNOSIDES/DOCUSATE SODIUM 1 TAB TABLET PO PRN (10:30)
[2017-05-18 16:17] VITALS: BP 132/54
[2017-05-18] MEDS: WARFARIN SODIUM 5 MG TABLET PO SCH (16:39)
--- NOTE | 2017-05-18 18:32 | NUR ---
RN NOTES RECEIVED ORDERS FROM ROMIE LEE, PER CHILD DAY CARE TEACHER MAY DC PT HOME TODAY WILL EXPLAIN TO PT AND ASSIST WITH DISCHARGE PROCESS
--- NOTE | 2017-05-18 18:33 | NUR ---
RN CLOSING NOTES PATIENT AOX4, ARABIC SPEAKING, UNDERSTANDS SOME WOLOF. DENIES PAIN AT THE MOMENT. ON ROOM AIR, RESPIRATIONS EVEN AND UNLABORED. IV SITE ON LEFT WRIST GAUGE 20 PATENT AND INTACT NO REDNESS OR INFILTRATION NOTED. PATIENT KEPT CLEAN AND COMFORTABLE. BED IN LOWEST LOCKED POSITION. CALL LIGHT WITHIN REACH. WILL CONTINUE TO MONITOR AND ENDORSE TO NEXT SHIFT FOR CONTINUITY OF CARE
--- NOTE | 2017-05-18 19:40 | NUR ---
MS RN OPENING NOTE RECEIVED PATIENT WITH DISCHARGE ORDER, SITTING ON THE BEDSIDE, PREPARED TO BE PICKED UP BY THE FAMILY. ALERT ORIENTED X4, ON ROOM AIR, TOLERATING WELL. DENIES SOB AND PAIN AT THIS TIME. RESPIRATIONS EVEN AND UNLABORED, NO APPARENT DISTRESS OR DISCOMFORT NOTED AT THIS TIME. PATIENT IS AMBULATORY WITH STEADY GAIT. L WRIST 20G SL. PATENT AND INTACT. PATIENT IN STABLE CONDITION, SAFETY MEASURES IN PLACE, BED IN LOW LOCKED POSITION, SIDE RAILS UP X2. CALL LIGHT WITHIN EASY REACH. WILL CONTINUE TO MONITOR.
[2017-05-18 20:00] VITALS: BP 118/56
--- NOTE | 2017-05-18 20:30 | NUR ---
MS RN NOTE PATIENT IS READY TO BE DISCHARGE, FAMILY PRESENT FOR CARAMEL CANDY MAKER HELPER. PATIENT IS STABLE, VITAL SIGNS STABLE: 118/56, HR 60, RR 20, TEMP 98.1, O2SAT 95%. ALERT ORIENTED X4, ABLE TO AMBULATE, DISCHARGE INSTRUCTIONS GIVEN, VALUABLES WERE CHECKED AND COUNTED WITH THE PATIENT, PAPERS SIGNED, COPIES PROVIDED TO PATIENT. L WRIST SL REMOVED. PATIENT WAS ESCORTED FROM THE UNIT ON WHEELCHAIR WITH THE ASSISTANCE OF THE BANDER AND CELLOPHANER MACHINE HELPER.
== END 2017-05-18 20:45 | disposition home or self-care (01) | DRG 291 ==
LOC: ER 19:35 → TELE 22:15 → MED 05-14 20:05
PROVIDERS: ADMIT Internal Medicine; ATTEND Internal Medicine
DX: I11.0 Hypertensive heart disease with heart failure (principal); N17.0 Acute kidney failure with tubular necrosis; J96.01 Acute respiratory failure with hypoxia; I27.20 Pulmonary hypertension, unspecified; D68.59 Other primary thrombophilia; J90 Pleural effusion, not elsewhere classified; I50.33 Acute on chronic diastolic (congestive) heart failure; D63.8 Anemia in other chronic diseases classified elsewhere; E11.9 Type 2 diabetes mellitus without complications; E66.9 Obesity, unspecified; E78.5 Hyperlipidemia, unspecified; I48.2 Chronic atrial fibrillation; M81.0 Age-related osteoporosis without current pathological fracture; Z79.01 Long term (current) use of anticoagulants; Z85.3 Personal history of malignant neoplasm of breast; Z90.11 Acquired absence of right breast and nipple; K29.70 Gastritis, unspecified, without bleeding; Z86.718 Personal history of other venous thrombosis and embolism; I34.0 Nonrheumatic mitral (valve) insufficiency; Z68.29 Body mass index [BMI] 29.0-29.9, adult; Z95.810 Presence of automatic (implantable) cardiac defibrillator; Z79.4 Long term (current) use of insulin
CPT/HCPCS: 36415; 71045-TC; 80048-TC; 80053-TC; 80076-TC; 82962-TC; 83735-TC; 83880; 84100-TC; 84443-TC; 84484-TC; 85025-TC; 85610-TC; 85730-TC; 87081-TC; 93307-TC; 94799-TC; A4606; J1815; J1940; J3475; J7050; Z7610

== ENCOUNTER 2020-02-10 12:17 | Inpatient (IN) | payer MEDICARE, OTHER ==
[~2020-02-10] VITALS: Ht 157.5 cm; Wt 76.7 kg
[~2020-02-10 12:17] MED LIST changes: -BENA40TA67 PO
[2020-02-10 13:52] LABS: BASOPHILS % (AUTO) 0.4 % (0.0-2.0); EOSINOPHILS % (AUTO) 1.6 % (0.0-6.0); HEMATOCRIT 32 % (33-45); HEMOGLOBIN 10.4 g/dL (11.5-14.8); LYMPHOCYTES # (AUTO) 0.9 /CMM (0.8-4.8); LYMPHOCYTES % (AUTO) 16.5 % (20.0-44.0); MEAN CORPUSCULAR HGB CONC 32 g/dl (31.0-36.0); MEAN CORPUSCULAR VOLUME 92 fL (82-100); MONOCYTES # (AUTO) 0.4 /CMM (0.1-1.30); MONOCYTES % (AUTO) 7.6 % (2.0-12.0); NEUTROPHILS # (AUTO) 4.2 /CMM (1.8-8.9); NEUTROPHILS % (AUTO) 73.9 % (43.0-81.0); PLATELET COUNT (AUTO) 168 /CMM (150-450); RED BLOOD CELL COUNT(AUTO) 3.49 MIL/uL (4.0-5.2); WHITE BLOOD COUNT (AUTO) 5.7 K/uL (4.3-11.0)
[2020-02-10] MEDS ORDERED: FUROSEMIDE 40 MG/4 ML VIAL IV ONE (14:00)
[2020-02-10] MEDS ORDERED: FUROSEMIDE 40 MG/4 ML VIAL ONE (14:01)
[2020-02-10] MEDS ORDERED: APIX2.5T PO (14:46)
[2020-02-10] MEDS ORDERED: BENA40TA8 PO (14:46)
[2020-02-10 14:51] LABS: ALANINE AMINOTRANSFERASE 42 U/L (12-78); ALBUMIN 3.8 g/dL (3.4-5.0); ALKALINE PHOSPHATASE 84 U/L (46-116); ASPARTATE AMINOTRANSFERASE 33 U/L (15-37); BILIRUBIN,DIRECT 0.1 mg/dL (0.0-0.2); BILIRUBIN,TOTAL 0.4 mg/dL (0.2-1.0); CALCIUM, SERUM 9.5 mg/dL (8.5-10.1); CARBON DIOXIDE 20 mmol/L (21-32); CHLORIDE 101 mmol/L (98-107); CREATININE 1.9 mg/dL (0.6-1.3); GLUCOSE 238 mg/dL (74-106); POTASSIUM 4.8 mmol/L (3.5-5.1); SODIUM SERUM 136 mmol/L (136-145); TOTAL PROTEIN, SERUM 7.2 g/dL (6.4-8.2); UREA NITROGEN, BLOOD 63 mg/dL (7-18)
--- NOTE | 2020-02-10 15:08 | NUR ---
MOVE SHEET SUBMITTED AND CALLED FOR TELE BED
[2020-02-10 15:10] LABS: B-TYPE NATRIURETIC PEPTIDE 2184 PG/ML (0-125)
--- NOTE | 2020-02-10 15:16 | NUR ---
[facility] CALLED PROCESSING SPECIALIST PAGED.
--- NOTE | 2020-02-10 16:13 | NUR ---
CALLED DR. MORRISON [phone].
[2020-02-10] MEDS ORDERED: MORPHINE SULFATE INJ 2 MG/ML DISP.SYRIN IV PRN (17:30)
[2020-02-10] MEDS ORDERED: ONDANSETRON HCL/PF 4 MG/2 ML VIAL IVP PRN (17:30)
[2020-02-10] MEDS ORDERED: HYDROCODONE/APAP 5/325MG TABLET PO PRN (17:30)
[2020-02-10] MEDS ORDERED: MAG HYDROX/AL HYDROX/SIMETH 30 ML UDC PO PRN (17:30)
[2020-02-10] MEDS ORDERED: Z GUARD REMEDY 2 OZ OINT TP PRN (17:30)
[2020-02-10] MEDS ORDERED: ACETAMINOPHEN 325 MG TABLET PO PRN (17:30)
[2020-02-10] MEDS ORDERED: DEXTROSE 50%-WATER 50 ML DISP.SYRIN IV PRN (17:30)
[2020-02-10 17:40] LABS: BILIRUBIN,URINE Negative (NEGATIVE); BLOOD, URINE Negative Ery/uL (NEGATIVE); COLOR,URINE YELLOW (YELLOW); LEUKOCYTE ESTERASE ,URINE Negative (NEGATIVE); NITRITE, URINE Negative (NEGATIVE); PROTEIN,URINE Negative (NEGATIVE); UGLUCOSE >=1000 mg/dL (NEGATIVE); UROBILINOGEN,URINE 0.2 EU/dL (0.2)
--- NOTE | 2020-02-10 17:47 | NUR ---
covid swab collected sent to lab
[2020-02-10 17:59] LABS: BACTERIA,URINE Rare /HPF (None Seen); RBC,URINE NONE SEEN /HPF (0-2); SQUAMOUS EPITHELIAL CELL,UR Few /HPF (None Seen); WBC,URINE NONE SEEN /HPF (0-3)
--- NOTE | 2020-02-10 18:28 | NUR ---
called fiberglass boat assembly supervisor for bed assignment
--- NOTE | 2020-02-10 20:22 | NUR ---
PT ALERT AND AWAKE, RESPIRATIONS EVEN AND UNLABORED ON RA W/ NAD NOTED. PT CONNECTED TO THE RECEPTION INTERVIEWER AND POX. VSS.
--- NOTE | 2020-02-10 20:28 | NUR ---
REPORT GIVEN TO SUNDEEP ZAVALETA FOR RILEY
--- NOTE | 2020-02-10 20:30 | NUR ---
RN NOTES RECEIVED REPORT FROM SUNDEEP LEO; AWAITING FOR PATIENT ARRIVAL TO UNIT
[2020-02-10 21:40] VITALS: BP 161/82
--- NOTE | 2020-02-10 22:00 | NUR ---
FRAME OPENER ADMITTING NOTES PATIENT ARRIVED TO UNIT VIA GURNEY, ACCOMPANIED BY ER STAFF; PATIENT A/OX3-4, GREEK SPEAKING; NO SOB NOTED; TOLERATING ROOM AIR WELL; SATTING 98%; PATIENT AMBULATORY WITH STEADY GAIT; BILATERAL LOWER EXTREMITY EDEMA NOTED; BELONGINGS CHECKED; TELE MONITOR READS A PACING 60S; PACEMAKER PRESENT; R AC #18 INTACT, FLUSHING WELL; PATIENT ORIENTED TO UNIT AND TO STAFF; PATIENT UNABLE TO UNDERSTAND [place]ENLAND[place]; ATTEMPTED TO CONTACT FAMILY MEMBER ON FILE, BUT PHONE IS CURRENTLY OFF; CHARGE NURSE AWARE; WILL ATTEMPT TO CONTACT FAMILY FOR PATIENT MEDICAL HX AGAIN; SAFETY PRECAUTIONS IMPLEMENTED; BED LOCKED IN LOW POSITION; SIDE RAILSX2; CALL LIGHT WITHIN REACH; WILL CONT TO MONITOR
[2020-02-10] MEDS: BLOOD SUGAR DIAGNOSTIC 1 EACH STRIP VI SCH (22:02)
--- NOTE | 2020-02-10 22:02 | NUR ---
PT TRANSFERRED TO ROOM PER ACLS PROTOCOL
--- NOTE | 2020-02-10 22:34 | NUR ---
WOODWORKING CRAFTSMAN NOTES ABLE TO GET A HOLD OF PATIENT'S DAUGHTER --- VIOLETA ; DAUGHTER CONFIRMED MEDICAL HISTORY; PER DAUGHTER SHE WAS IN ER WITH PATIENT FOR 8 HOURS CONFIRMING INFORMATION WITH ER STAFF; "WHATEVER INFORMATION THEY HAVE IS CORRECT"; PER DAUGHTER OKAY TO CALL HER FOR ANY UPDATES/QUESTIONS; WILL CONT TO MONITOR
--- NOTE | 2020-02-10 23:00 | NUR ---
KNIFE BLADE POLISHER NOTES VTE SCORE OF 5, AWAITING MD ORDERS FOR CHEMICAL PROPHYLAXIS; PATIENT HAS BILATERAL LOWER EXTREMITY EDEMA, UNABLE TO APPLY DVT PUMPS; CHARGE NURSE AWARE; WILL CONT TO MONITOR
--- NOTE | 2020-02-10 23:14 | NUR ---
ADMINISTRATIVE LIAISON NOTES SPOKE WITH DR. MORRISON, PER , LOVENOX 40MG SQ DAILY; MD WILL FOLLOW UP WITH PATIENT/SEE PATIENT TOMORROW; CHARGE NURSE AWARE; WILL CONT TO MONITOR
--- NOTE | 2020-02-10 23:30 | NUR ---
FIELD SALES TRAINER NOTES PER PHARMACY, PATIENT ON ELIQUIS; PATIENT UNABLE TO HAVE LOVENOX, CHARGE NURSE AND MD AWARE; WILL CONT TO MONITOR
[2020-02-11] VITALS: BP 140/74
[2020-02-11 04:00] VITALS: BP 158/78
[2020-02-11 06:13] LABS: BASOPHILS % (AUTO) 0.4 % (0.0-2.0); EOSINOPHILS % (AUTO) 1.4 % (0.0-6.0); HEMATOCRIT 30 % (33-45); IRON, SERUM 31 ug/dl (50-175); LYMPHOCYTES # (AUTO) 0.9 /CMM (0.8-4.8); LYMPHOCYTES % (AUTO) 18.1 % (20.0-44.0); MEAN CORPUSCULAR HGB CONC 34 g/dl (31.0-36.0); MEAN CORPUSCULAR VOLUME 90 fL (82-100); MONOCYTES # (AUTO) 0.5 /CMM (0.1-1.30); MONOCYTES % (AUTO) 9.7 % (2.0-12.0); NEUTROPHILS # (AUTO) 3.6 /CMM (1.8-8.9); NEUTROPHILS % (AUTO) 70.4 % (43.0-81.0); PLATELET COUNT (AUTO) 163 /CMM (150-450); RED BLOOD CELL COUNT(AUTO) 3.33 MIL/uL (4.0-5.2); TOTAL IRON BINDING CAPACITY 263 ug/dl (250-450); WHITE BLOOD COUNT (AUTO) 5.1 K/uL (4.3-11.0)
[2020-02-11 06:20] LABS: ALANINE AMINOTRANSFERASE 35 U/L (12-78); ALBUMIN 3.4 g/dL (3.4-5.0); ALKALINE PHOSPHATASE 57 U/L (46-116); ASPARTATE AMINOTRANSFERASE 23 U/L (15-37); BILIRUBIN,TOTAL 0.5 mg/dL (0.2-1.0); CALCIUM, SERUM 9.1 mg/dL (8.5-10.1); CARBON DIOXIDE 24 mmol/L (21-32); CHLORIDE 105 mmol/L (98-107); CHOLESTEROL 161 mg/dL (<200); CREATINE KINASE, TOTAL 56 U/L (26-192); CREATININE 1.7 mg/dL (0.6-1.3); GLUCOSE 133 mg/dL (74-106); HDL CHOLESTEROL 60 mg/dL (40-60); LDL 90 mg/dL (0-99); MAGNESIUM 1.9 mg/dL (1.8-2.4); PHOSPHORUS 3.8 mg/dL (2.5-4.9); POTASSIUM 4.1 mmol/L (3.5-5.1); SODIUM SERUM 140 mmol/L (136-145); THYROID STIMULATING HORMONE 1.372 uIU/mL (0.358-3.74); TOTAL PROTEIN, SERUM 6.6 g/dL (6.4-8.2); TRIGLYCERIDES 60 mg/dL (30-150); UREA NITROGEN, BLOOD 58 mg/dL (7-18)
[2020-02-11] MEDS: BLOOD SUGAR DIAGNOSTIC 1 EACH STRIP VI SCH ×4 (06:36→21:20)
--- NOTE | 2020-02-11 06:39 | NUR ---
BONSAI TENDER CLOSING NOTES PATIENT RESTING IN BED COMFORTABLY; A/OX3-4, ROMANIAN/CHINESE SPEAKING; PATIENT ABLE TO MAKE NEEDS KNOWN; CONDUCTOR/ENGINEER NEEDED, CHARGE NURSE AWARE; BREATHING EVEN AND UNLABORED; NO SOB NOTED; NO DISTRESS NOTED; TOLERATING ROOM AIR WELL; TELE MONITOR READS A.PACING; R AC #18 S/L INTACT AND PATENT; ALL NEEDS RENDERED; SAFETY PRECAUTIONS IMPLEMENTED; WILL ENDORSE RILEY TO ONCOMING SHIFT
--- NOTE | 2020-02-11 07:15 | NUR ---
Tele/RN - Assessment Patient in bed awake, A/O X 4, denies chest pain, no complaints overnight, states breathing better, stable on room air, no apparent distress seen, tele shows A pacing. Saline lock on the RAC is patent, intact, flushing well. Labs reviewed, no critical results. Fall and aspiration precautions maintained. Patient updated on plan of care and in agreement. Will continue with current medical management.
[2020-02-11 08:00] VITALS: BP 120/69
[2020-02-11] MEDS: GABAPENTIN 100 MG CAPSULE PO SCH ×3 (08:24→16:27)
[2020-02-11] MEDS: BENAZEPRIL HCL 20 MG TABLET PO SCH (08:24)
[2020-02-11] MEDS: CARVEDILOL 12.5 MG TABLET PO SCH ×2 (08:25→16:28)
[2020-02-11] MEDS: ISOSORBIDE MONONITRATE (30MG) 30 MG TAB.SR.24H PO SCH (08:26)
[2020-02-11] MEDS: SPIRONOLACTONE 25 MG TABLET PO SCH (08:26)
[2020-02-11] MEDS: APIXABAN 2.5 MG TABLET PO SCH ×2 (08:26→16:29)
--- NOTE | 2020-02-11 08:49 | NUR ---
WOUND CARE CONSULT: PT REFUSED FULL SKIN ASSESSMENT BUT STATES IS AMBULATORY. SOME REDNESS AND EDEMA NOTED TO LOWER LEGS, ESPECIALLY RT LOWER LEG, PRESENT ON ADMISSION. RECOMMENDATIONS MADE FOR SKIN PROTECTION. DISCUSSED WITH NURSING STAFF. WILL SEE PRN.
[2020-02-11] MEDS ORDERED: ENOXAPARIN SODIUM 40 MG/0.4 ML DISP.SYRIN SQ SCH (09:00)
[2020-02-11] MEDS: FUROSEMIDE 40 MG/4 ML VIAL IV SCH ×3 (09:35→16:30)
[2020-02-11] MEDS: INSULIN REGULAR, HUMAN 100 UNIT/ML 3 ML VIAL SQ PRN ×2 (12:21→17:08)
[2020-02-11] MEDS: SOD FERRIC GLUC 125 MG in IV NS 0.9% 100 ML IV SCH (14:26)
[2020-02-11 16:00] VITALS: BP 119/58
--- NOTE | 2020-02-11 18:24 | NUR ---
MS/RN - End of shift summary Patient remain alert and oriented, states feeling better, afebrile, no c/o chest pain, denies shortness of breath, blood sugar controlled. Patient assisted with self care activities to minimize exhaustion and educated on the importance of limiting her fluid intake to 1.5 liters per day. Patient was given Lasix 40 mg IVP x 3 doses, diuresing well. Fall and aspiration precautions maintained. Will continue with current plan of care.
--- NOTE | 2020-02-11 19:33 | NUR ---
MS RN OPENING NOTES RECEIVED PATIENT RESTING IN BED COMFORTABLY; A/OX3, DIVEHI SPEAKING; BREATHING EVEN AND UNLABORED; TOLERATING ROOM AIR WELL; NO SOB NOTED; NO DISTRESS NOTED; PATIENT DENIES PAIN; RAC #18 INTACT S/L; FLUSHING WELL; PATIENT ON STRICT I&O, PATIENT AWARE; PATIENT ABLE TO MAKE NEEDS KNOWN; SAFETY PRECAUTIONS IMPLEMENTED; BED LOCKED IN LOW POSITION; SIDE RAILSX2; CALL LIGHT WITHIN REACH; WILL CONT TO MONITOR
[2020-02-11 20:00] VITALS: BP 114/68
[2020-02-11 20:25] VITALS: BP 114/68
[2020-02-11] MEDS: *INSULIN REGULAR(HUMULIN R)HUM 100 UNIT/ML VIAL SQ PRN (21:20)
[2020-02-12 06:02] LABS: BASOPHILS % (AUTO) 0.6 % (0.0-2.0); EOSINOPHILS % (AUTO) 3.5 % (0.0-6.0); HEMATOCRIT 29 % (33-45); HEMOGLOBIN 9.9 g/dL (11.5-14.8); LYMPHOCYTES # (AUTO) 1.1 /CMM (0.8-4.8); LYMPHOCYTES % (AUTO) 25.1 % (20.0-44.0); MEAN CORPUSCULAR HGB CONC 34 g/dl (31.0-36.0); MEAN CORPUSCULAR VOLUME 90 fL (82-100); MONOCYTES # (AUTO) 0.6 /CMM (0.1-1.30); MONOCYTES % (AUTO) 12.7 % (2.0-12.0); NEUTROPHILS # (AUTO) 2.6 /CMM (1.8-8.9); NEUTROPHILS % (AUTO) 58.1 % (43.0-81.0); PLATELET COUNT (AUTO) 156 /CMM (150-450); RED BLOOD CELL COUNT(AUTO) 3.26 MIL/uL (4.0-5.2); WHITE BLOOD COUNT (AUTO) 4.4 K/uL (4.3-11.0)
[2020-02-12 06:10] LABS: ALANINE AMINOTRANSFERASE 29 U/L (12-78); ALBUMIN 3.2 g/dL (3.4-5.0); ALKALINE PHOSPHATASE 51 U/L (46-116); ASPARTATE AMINOTRANSFERASE 14 U/L (15-37); BILIRUBIN,TOTAL 0.5 mg/dL (0.2-1.0); CALCIUM, SERUM 8.9 mg/dL (8.5-10.1); CARBON DIOXIDE 29 mmol/L (21-32); CHLORIDE 105 mmol/L (98-107); CREATININE 1.6 mg/dL (0.6-1.3); GLUCOSE 92 mg/dL (74-106); MAGNESIUM 1.9 mg/dL (1.8-2.4); PHOSPHORUS 4.6 mg/dL (2.5-4.9); SODIUM SERUM 141 mmol/L (136-145); TOTAL PROTEIN, SERUM 6.3 g/dL (6.4-8.2); UREA NITROGEN, BLOOD 62 mg/dL (7-18)
[2020-02-12] MEDS: BLOOD SUGAR DIAGNOSTIC 1 EACH STRIP VI SCH ×4 (06:39→21:36)
--- NOTE | 2020-02-12 06:45 | NUR ---
MS RN CLOSING NOTES PATIENT RESTING IN BED COMFORTABLY; A/OX3, CYMRAES SPEAKING; BREATHING EVENLY AND UNLABORED; TOLERATING ROOM AIR WELL; NO SOB NOTED; NO DISTRESS NOTED; ABLE TO MAKE NEEDS KNOWN; FLUID RESTRICTION MAINTAINED; R AC #18 SALINE LOCK INTACT AND PATENT; ALL NEEDS RENDERED; SAFETY PRECAUTIONS IMPLEMENTED; WILL ENDORSE RILEY TO ONCOMING SHIFT
--- NOTE | 2020-02-12 07:15 | NUR ---
MS/RN - Assessment Patient in bed awake, A/O X 4, denies chest pain, no complaints overnight, states breathing better, bilateral lower ext swelling improved, stable on room air, no apparent distress seen. Saline lock on the RAC is patent, intact, flushing well. Patient compliant with medications and treatment. Labs reviewed, no critical results. Fall and aspiration precautions maintained. Discussed plan of care for today and in agreement.
[2020-02-12 08:00] VITALS: BP 143/59
[2020-02-12 08:12] LABS: PTH, INTACT 73 pg/mL (15-65)
[2020-02-12] MEDS: CARVEDILOL 12.5 MG TABLET PO SCH ×2 (08:32→16:56)
[2020-02-12] MEDS: GABAPENTIN 100 MG CAPSULE PO SCH ×3 (08:32→16:53)
[2020-02-12] MEDS: SPIRONOLACTONE 25 MG TABLET PO SCH (08:32)
[2020-02-12] MEDS: ISOSORBIDE MONONITRATE (30MG) 30 MG TAB.SR.24H PO SCH (08:33)
[2020-02-12] MEDS: APIXABAN 2.5 MG TABLET PO SCH ×2 (08:33→16:55)
[2020-02-12] MEDS: BENAZEPRIL HCL 20 MG TABLET PO SCH (08:33)
[2020-02-12] MEDS: FUROSEMIDE 40 MG/4 ML VIAL IV SCH ×3 (09:46→16:56)
[2020-02-12] MEDS: INSULIN REGULAR, HUMAN 100 UNIT/ML 3 ML VIAL SQ PRN ×2 (12:11→17:21)
[2020-02-12] MEDS: SOD FERRIC GLUC 125 MG in IV NS 0.9% 100 ML IV SCH (14:22)
[2020-02-12 15:07] LABS: *SPE A/G RATIO 1.1 (0.7-1.7); *SPE ALBUMIN 3.2 g/dL (2.9-4.4); *SPE ALPHA-1-GLOBULIN 0.3 g/dL (0.0-0.4); *SPE ALPHA-2-GLOBULIN 0.8 g/dL (0.4-1.0); *SPE BETA GLOBULIN 0.9 g/dL (0.7-1.3); *SPE GLOBULIN, TOTAL 2.8 g/dL (2.2-3.9); *SPE M-SPIKE Not Observed g/dL (Not Observed); *SPEGAMMA GLOBULIN 0.8 g/dL (0.4-1.8)
[2020-02-12 16:00] VITALS: BP 115/42
--- NOTE | 2020-02-12 18:45 | NUR ---
MS/RN - End of shift summary Patient continues to improve with treatment, remain afebrile, no c/o chest pain, denies shortness of breath, blood sugar controlled. Patient compliant with medications and treatment. Patient was given Lasix 40 mg IVP x 3 doses, diuresing well, total output was 1500 ml of yellow urine. Fall and aspiration precautions maintained. Will continue with current plan of care.
--- NOTE | 2020-02-12 19:30 | NUR ---
MS RN NOTES RECEIVED A/O X3,,SITTING ON EDGE OF BED,SPEAK YORUBA,BREATHING REGULAR,NOT IN ANY FORM OF DISTRESS,SALINE LOCK RIGHT AC INTACT AND PATENT.NOTED NON PITTING EDEMA ON BOTH LOWER LEGS.ENCOURAGED TO CONTINUE TO ELEVATE BOTH LEGS ON PILLOWS WHEN LAYING DOWN ON BED,DENIES DISCOMFORTS AT THE MOMENT.CALL LIGHT IN REACH,NEEDS ANTICIPATED.
[2020-02-12 20:00] VITALS: BP 114/54
[2020-02-12] MEDS: *INSULIN REGULAR(HUMULIN R)HUM 100 UNIT/ML VIAL SQ PRN (21:49)
--- NOTE | 2020-02-12 22:00 | NUR ---
MS RN NOTES ACCU-CHECK BLOOD SUGAR CHECKED 232,COVERED WITH HUMULIN 4UNITS PER SLIDING SCALE.
--- NOTE | 2020-02-13 03:00 | NUR ---
MS RN NOTES SLEEPING,KEPT WARM AND COMFORTABLE
[2020-02-13] MEDS: BLOOD SUGAR DIAGNOSTIC 1 EACH STRIP VI SCH ×3 (05:30→17:30)
--- NOTE | 2020-02-13 05:30 | NUR ---
MS RN NOTES ACCU-CHECK BLOOD SUGAR CHECK 130,NO INSULIN COVERAGE
--- NOTE | 2020-02-13 06:22 | NUR ---
MS RN NOTES SLEPT WELL AT NIGHT,BLOOD SUGAR WITH IN NORMAL LIMITS,EDEMA ON BILATERAL LOWER EXTREMITIES IMPROVED.NO EPISODE OF SOB NOTED.IN NO ACUTE DISTRESS.WILL ENDORSE TO DAY NURSE FOR RILEY.
[2020-02-13 06:25] LABS: BASOPHILS % (AUTO) 0.5 % (0.0-2.0); EOSINOPHILS % (AUTO) 3.4 % (0.0-6.0); HEMATOCRIT 33 % (33-45); HEMOGLOBIN 10.9 g/dL (11.5-14.8); LYMPHOCYTES # (AUTO) 1.4 /CMM (0.8-4.8); LYMPHOCYTES % (AUTO) 28.7 % (20.0-44.0); MEAN CORPUSCULAR HGB CONC 33 g/dl (31.0-36.0); MEAN CORPUSCULAR VOLUME 90 fL (82-100); MONOCYTES # (AUTO) 0.5 /CMM (0.1-1.30); MONOCYTES % (AUTO) 10.3 % (2.0-12.0); NEUTROPHILS # (AUTO) 2.7 /CMM (1.8-8.9); NEUTROPHILS % (AUTO) 57.1 % (43.0-81.0); PLATELET COUNT (AUTO) 171 /CMM (150-450); RED BLOOD CELL COUNT(AUTO) 3.65 MIL/uL (4.0-5.2); WHITE BLOOD COUNT (AUTO) 4.8 K/uL (4.3-11.0)
--- NOTE | 2020-02-13 07:15 | NUR ---
ms rn received on bed, awake,alert,oriented x3,not in any form of distress,respirations even and unlabored,no sob noted, lungs are diminished,abdomen soft,positive bowel sounds,denies pain at this time,all needs attended.
[2020-02-13 07:17] LABS: ALANINE AMINOTRANSFERASE 28 U/L (12-78); ALBUMIN 3.5 g/dL (3.4-5.0); ALKALINE PHOSPHATASE 57 U/L (46-116); ASPARTATE AMINOTRANSFERASE 18 U/L (15-37); BILIRUBIN,TOTAL 0.3 mg/dL (0.2-1.0); CALCIUM, SERUM 9.2 mg/dL (8.5-10.1); CARBON DIOXIDE 27 mmol/L (21-32); CHLORIDE 104 mmol/L (98-107); CREATININE 1.9 mg/dL (0.6-1.3); GLUCOSE 141 mg/dL (74-106); PHOSPHORUS 4.9 mg/dL (2.5-4.9); POTASSIUM 4.5 mmol/L (3.5-5.1); SODIUM SERUM 140 mmol/L (136-145); TOTAL PROTEIN, SERUM 6.9 g/dL (6.4-8.2); UREA NITROGEN, BLOOD 71 mg/dL (7-18)
[2020-02-13 08:00] VITALS: BP 124/71
[2020-02-13] MEDS: GABAPENTIN 100 MG CAPSULE PO SCH ×3 (08:19→17:30)
[2020-02-13] MEDS: SPIRONOLACTONE 25 MG TABLET PO SCH (08:19)
[2020-02-13] MEDS: ISOSORBIDE MONONITRATE (30MG) 30 MG TAB.SR.24H PO SCH (08:33)
[2020-02-13] MEDS: CARVEDILOL 12.5 MG TABLET PO SCH ×2 (08:33→17:30)
[2020-02-13] MEDS: APIXABAN 2.5 MG TABLET PO SCH ×2 (08:34→17:32)
[2020-02-13] MEDS: BENAZEPRIL HCL 20 MG TABLET PO SCH (08:34)
--- NOTE | 2020-02-13 09:00 | NUR ---
ms schwartz breakfast served,due meds given,tolerated well.
[2020-02-13] MEDS: *INSULIN REGULAR(HUMULIN R)HUM 100 UNIT/ML VIAL SQ PRN (12:16)
--- NOTE | 2020-02-13 12:35 | NUR ---
ms rn was seen by dr. wayne negro/ wallace to go home today, patient made aware.
[2020-02-13] MEDS: SOD FERRIC GLUC 125 MG in IV NS 0.9% 100 ML IV SCH (14:39)
[2020-02-13 16:00] VITALS: BP 126/54
[2020-02-13 17:30] VITALS: BP 126/54
--- NOTE | 2020-02-13 18:00 | NUR ---
ms rn patient worm picker by son, all discharge instruction given and understood,no distress noted, patient refused to take blood sugar before leaving.
== END 2020-02-13 18:42 | disposition home or self-care (01) | DRG 682 ==
LOC: ER 12:20 → TELE 20:37 → MED 02-11 09:17
PROVIDERS: ADMIT Nurse Practitioner Acute Care
DX: N17.0 Acute kidney failure with tubular necrosis (principal); I50.33 Acute on chronic diastolic (congestive) heart failure; I13.0 Hypertensive heart and chronic kidney disease with heart failure and stage 1 through stage 4 chronic kidney disease, or unspecified chronic kidney disease; D68.69 Other thrombophilia; I25.10 Atherosclerotic heart disease of native coronary artery without angina pectoris; I48.91 Unspecified atrial fibrillation; M19.90 Unspecified osteoarthritis, unspecified site; M81.0 Age-related osteoporosis without current pathological fracture; D63.8 Anemia in other chronic diseases classified elsewhere; E11.65 Type 2 diabetes mellitus with hyperglycemia; F32.9 Major depressive disorder, single episode, unspecified; F41.9 Anxiety disorder, unspecified; G47.00 Insomnia, unspecified; G89.29 Other chronic pain; Z79.01 Long term (current) use of anticoagulants; Z90.11 Acquired absence of right breast and nipple; D50.9 Iron deficiency anemia, unspecified; I27.20 Pulmonary hypertension, unspecified; E11.22 Type 2 diabetes mellitus with diabetic chronic kidney disease; N18.9 Chronic kidney disease, unspecified; Z85.3 Personal history of malignant neoplasm of breast; N13.9 Obstructive and reflux uropathy, unspecified; I34.0 Nonrheumatic mitral (valve) insufficiency; Z95.810 Presence of automatic (implantable) cardiac defibrillator; Z79.4 Long term (current) use of insulin; Z83.3 Family history of diabetes mellitus; Z82.49 Family history of ischemic heart disease and other diseases of the circulatory system; Z20.828 Contact with and (suspected) exposure to other viral communicable diseases
CPT/HCPCS: 36415; 71045-TC; 80048-TC; 80053-TC; 80061-TC; 80076-TC; 81001; 82550-TC; 82962-TC; 83540-TC; 83735-TC; 83880; 83970; 84100-TC; 84155; 84165; 84443-TC; 84484-TC; 85025-TC; 85730-TC; 87081-TC; 93307-TC; 93970-TC; 97116-TC; 97530-TC; C9803; G0378; J1815; J1940; J2916; J3490; J7030; J7050

== ENCOUNTER 2020-07-31 12:01 | Inpatient (IN) | payer MEDICARE, OTHER ==
[~2020-07-31] VITALS: Ht 160 cm; Wt 79.5 kg
[~2020-07-31 12:01] MED LIST changes: +APIX2.5T PO; +BENA40TA8 PO; -INSU100I14 SQ; -ISOS30TA6 PO; +ISOS30TA86 PO; -WARF1TAB86 PO
--- NOTE | 2020-07-31 12:20 | NUR ---
The patient is bib her daughter with c/o SOB with nausea and vomiting x 2 days and lower leg swelling. Respiration regular and unlabored at this time. Denies pain. Attached to the monitor. Warm blankets provided to the patient. Will continue to monitor the patient.
[2020-07-31] MEDS ORDERED: NITROGLYCERIN PACKET 1 GM PACKET TD ONE (12:30)
[2020-07-31] MEDS ORDERED: ASPIRIN 325 MG TABLET PO ONE (12:30)
[2020-07-31] MEDS ORDERED: FUROSEMIDE 40 MG/4 ML VIAL IV ONE (12:30)
--- NOTE | 2020-07-31 12:31 | NUR ---
blood specimen collected and sent to the lab
[2020-07-31] MEDS ORDERED: ASPIRIN 325 MG TABLET ONE (12:33)
[2020-07-31] MEDS ORDERED: FUROSEMIDE 40 MG/4 ML VIAL ONE (12:33)
[2020-07-31] MEDS ORDERED: NITROGLYCERIN PACKET 1 GM PACKET ONE (12:33)
[2020-07-31 12:37] LABS: BASOPHILS % (AUTO) 0.2 % (0.0-2.0); EOSINOPHILS % (AUTO) 1.2 % (0.0-6.0); HEMATOCRIT 30 % (33-45); HEMOGLOBIN 9.9 g/dL (11.5-14.8); LYMPHOCYTES # (AUTO) 0.6 /CMM (0.8-4.8); LYMPHOCYTES % (AUTO) 12.2 % (20.0-44.0); MEAN CORPUSCULAR HGB CONC 33 g/dl (31.0-36.0); MEAN CORPUSCULAR VOLUME 92 fL (82-100); MONOCYTES # (AUTO) 0.3 /CMM (0.1-1.30); MONOCYTES % (AUTO) 6.4 % (2.0-12.0); NEUTROPHILS # (AUTO) 4.1 /CMM (1.8-8.9); PLATELET COUNT (AUTO) 180 /CMM (150-450); WHITE BLOOD COUNT (AUTO) 5.2 K/uL (4.3-11.0)
[2020-07-31 12:58] LABS: ALANINE AMINOTRANSFERASE 24 U/L (12-78); ALBUMIN 3.9 g/dL (3.4-5.0); ALKALINE PHOSPHATASE 73 U/L (46-116); ASPARTATE AMINOTRANSFERASE 17 U/L (15-37); BILIRUBIN,DIRECT 0.1 mg/dL (0.0-0.2); BILIRUBIN,TOTAL 0.3 mg/dL (0.2-1.0); CARBON DIOXIDE 17 mmol/L (21-32); CHLORIDE 100 mmol/L (98-107); CREATININE 1.7 mg/dL (0.6-1.3); GLUCOSE 237 mg/dL (74-106); NT-PRO BNP 2210 pg/mL (0-125); SODIUM SERUM 127 mmol/L (136-145); TOTAL PROTEIN, SERUM 7.3 g/dL (6.4-8.2); UREA NITROGEN, BLOOD 61 mg/dL (7-18)
[2020-07-31 12:59] LABS: POTASSIUM 6.4 mmol/L (3.5-5.1)
[2020-07-31] MEDS ORDERED: ACET325T53 PO (13:00)
--- NOTE | 2020-07-31 13:20 | NUR ---
covid swab done and sent to the lab
[2020-07-31] MEDS ORDERED: ALBUTEROL FS 2.5 MG/3 ML VIAL.NEB ONE (13:25)
[2020-07-31] MEDS ORDERED: SODIUM POLYSTYRENE SULFONATE 15 G/60 ML BOTTLE PO ONE (13:30)
[2020-07-31] MEDS ORDERED: INSULIN REGULAR, HUMAN 100 UNIT/ML 10 ML VIAL IV ONE (13:30)
[2020-07-31] MEDS ORDERED: SODIUM BICARBONATE SYR 50 MEQ/50 ML DISP.SYRIN IV ONE (13:30)
[2020-07-31] MEDS ORDERED: DEXTROSE 50%-WATER 50 ML DISP.SYRIN IV ONE (13:30)
[2020-07-31] MEDS ORDERED: ALBUTEROL FS 2.5 MG/3 ML VIAL.NEB NEB ONE (13:30)
[2020-07-31] MEDS ORDERED: SODIUM POLYSTYRENE SULFONATE 15 G/60 ML BOTTLE ONE (13:49)
[2020-07-31] MEDS ORDERED: DEXTROSE 50%-WATER 50 ML DISP.SYRIN ONE (13:50)
[2020-07-31] MEDS ORDERED: SODIUM BICARBONATE SYR 50 MEQ/50 ML DISP.SYRIN ONE (13:50)
[2020-07-31] MEDS ORDERED: INSULIN REGULAR, HUMAN 100 UNIT/ML 10 ML VIAL ONE (13:52)
--- NOTE | 2020-07-31 14:13 | NUR ---
covid negative per lab
--- NOTE | 2020-07-31 14:37 | NUR ---
BED 309-2 ASSIGNED
--- NOTE | 2020-07-31 14:56 | NUR ---
REPORT GIVEN TO NURSE KATINA
[2020-07-31] MEDS ORDERED: ONDANSETRON HCL/PF 4 MG/2 ML VIAL IVP PRN (15:00)
[2020-07-31] MEDS ORDERED: MAGNESIUM HYDROXIDE 30 ML UDC PO PRN (15:00)
[2020-07-31] MEDS ORDERED: ACETAMINOPHEN 325 MG TABLET PO PRN (15:00)
[2020-07-31] MEDS ORDERED: HYDROCODONE/APAP 5/325MG TABLET PO PRN (15:00)
[2020-07-31] MEDS ORDERED: DEXTROSE 50%-WATER 50 ML DISP.SYRIN IV PRN (15:00)
[2020-07-31] MEDS ORDERED: Z GUARD REMEDY 2 OZ OINT TP PRN (15:00)
[2020-07-31] MEDS ORDERED: MAG HYDROX/AL HYDROX/SIMETH 30 ML UDC PO PRN (15:00)
--- NOTE | 2020-07-31 15:15 | NUR ---
SOURCING ANALYSTER REGISTRAR NOTES MS RN CLOSING NOTE PATIENT IS AWAKE IN BED A/O X4. DUTCH SPEAKING. PT STABLE ON ROOM AIR. NO SOB NOTED. NO SIGNS OR SYMPTOMS OF RESPIRATORY DISTRESS. PATIENT IS AMBULATORY WITH ASSIST. IV ACCESS IN RAC#20. IV IS INTACT AND PATENT. VITAL SIGNS STABLE. SAFETY MEASURES IN PLACE. BED IN LOWEST LOCKED POSITION WITH SIDE RAILS UP X2. ORIENTED PATIENT TO CALL LIGHT. WILL CONTINUE TO MONITOR THROUGHOUT SHIFT. Addendum: 07/31/20 at 1903 by KATINA NAVARRO RN SOURCING ANALYSTER REGISTRAR NOTES PATIENT IS AWAKE IN BED A/O X4. DUTCH SPEAKING. PT STABLE ON ROOM AIR. NO SOB NOTED. NO SIGNS OR SYMPTOMS OF RESPIRATORY DISTRESS. PATIENT IS AMBULATORY WITH ASSIST. IV ACCESS IN RAC#20. IV IS INTACT AND PATENT. VITAL SIGNS STABLE. SAFETY MEASURES IN PLACE. BED IN LOWEST LOCKED POSITION WITH SIDE RAILS UP X2. ORIENTED PATIENT TO CALL LIGHT. WILL CONTINUE TO MONITOR THROUGHOUT SHIFT.
--- NOTE | 2020-07-31 15:27 | NUR ---
THE PATIENT IS TRANSFERED TO [facility] IN STABLE CONDITION AND PER ACLS PROTOCOL.
[2020-07-31 16:29] LABS: CALCIUM, SERUM 9.5 mg/dL (8.5-10.1); CARBON DIOXIDE 18 mmol/L (21-32); CHLORIDE 103 mmol/L (98-107); CREATININE 1.9 mg/dL (0.6-1.3); GLUCOSE 266 mg/dL (74-106); POTASSIUM 5.2 mmol/L (3.5-5.1); SODIUM SERUM 136 mmol/L (136-145); UREA NITROGEN, BLOOD 63 mg/dL (7-18)
[2020-07-31] MEDS: BLOOD SUGAR DIAGNOSTIC 1 EACH STRIP IN SCH ×2 (17:44→22:20)
[2020-07-31] MEDS: INSULIN REGULAR, HUMAN 100 UNIT/ML 3 ML VIAL SQ PRN ×2 (17:46→22:23)
--- NOTE | 2020-07-31 19:03 | NUR ---
AVIONICS MANAGER NOTES NOTIFIED DR. ANDRESSA EASON FOR ADMISSION ORDERS, MED RECON AND DVT PROPHYLAXIS.
--- NOTE | 2020-07-31 19:04 | NUR ---
STILL RUNNER CLOSING NOTES PATIENT IS AWAKE IN BED A/O X4. MONEGASQUE SPEAKING. PT STABLE ON ROOM AIR. NO SOB NOTED. NO SIGNS OR SYMPTOMS OF RESPIRATORY DISTRESS. PATIENT IS AMBULATORY WITH ASSIST. IV ACCESS IN RAC#20. IV IS INTACT AND PATENT. VITAL SIGNS STABLE. SAFETY MEASURES IN PLACE. BED IN LOWEST LOCKED POSITION WITH SIDE RAILS UP X2. ORIENTED PATIENT TO CALL LIGHT. WILL ENDORSE TO ONCOMING SHIFT.
--- NOTE | 2020-07-31 19:39 | NUR ---
ZIG ZAG STITCHER OPENING NOTE PATIENT A/O X4; SENEGALESE SPEAKING. ON ROOM AIR, TOLERATING WELL WITH NO SOB. EXTERNAL ZIG ZAG STITCHER READS V-PACING AT 120'S. RAC #20G S/L; PATENT AND INTACT. PATIENT DENIES PAIN. SAFETY MEASURES IN PLACE : SIDE RAILS UPX2, CALL LIGHT WITH EASY REACH, BED TO LOWEST LOCKED POSITION, BED ALARMS ON. PATIENT IN NO DISTRESS AT THIS TIME AND WALKING AROUND UNIT, WILL CONTINUE PLAN OF CARE.
[2020-07-31 20:00] VITALS: BP 116/57
[2020-07-31] MEDS: ENOXAPARIN SODIUM 30 MG/0.3 ML DISP.SYRIN SQ SCH (22:07)
[2020-08-01] VITALS: BP_SYST 116; BP_SYST 125; BP_DIAS 53; BP_DIAS 58
[2020-08-01 04:00] VITALS: BP 139/75
--- NOTE | 2020-08-01 05:41 | NUR ---
CLINICAL SYSTEMS EDUCATOR CLOSING NOTE PATIENT A/O X4; GAMBIAN SPEAKING. ON ROOM AIR, TOLERATING WELL WITH NO SOB. EXTERNAL PLATFORM MAN READS V-PACING AT 120'S. RAC #20G S/L; PATENT AND INTACT. PATIENT DENIES PAIN. SAFETY MEASURES IN PLACE : SIDE RAILS UPX2, CALL LIGHT WITH EASY REACH, BED TO LOWEST LOCKED POSITION, BED ALARMS ON. PATIENT IN NO DISTRESS AT THIS TIME, WILL ENDORSE PLAN OF CARE TO ONCOMING MORNING RN.
[2020-08-01 06:13] LABS: BASOPHILS % (AUTO) 0.4 % (0.0-2.0); EOSINOPHILS % (AUTO) 2.4 % (0.0-6.0); HEMATOCRIT 26 % (33-45); HEMOGLOBIN 8.9 g/dL (11.5-14.8); LYMPHOCYTES % (AUTO) 22.2 % (20.0-44.0); MEAN CORPUSCULAR HGB CONC 34 g/dl (31.0-36.0); MEAN CORPUSCULAR VOLUME 91 fL (82-100); MONOCYTES # (AUTO) 0.5 /CMM (0.1-1.30); MONOCYTES % (AUTO) 11.7 % (2.0-12.0); NEUTROPHILS # (AUTO) 2.8 /CMM (1.8-8.9); NEUTROPHILS % (AUTO) 63.3 % (43.0-81.0); PLATELET COUNT (AUTO) 155 /CMM (150-450); WHITE BLOOD COUNT (AUTO) 4.4 K/uL (4.3-11.0)
[2020-08-01] MEDS: BLOOD SUGAR DIAGNOSTIC 1 EACH STRIP IN SCH ×4 (06:41→22:00)
[2020-08-01] MEDS: INSULIN REGULAR, HUMAN 100 UNIT/ML 3 ML VIAL SQ PRN ×3 (06:42→22:35)
[2020-08-01 07:28] LABS: CALCIUM, SERUM 8.7 mg/dL (8.5-10.1); CARBON DIOXIDE 17 mmol/L (21-32); CHLORIDE 106 mmol/L (98-107); CREATININE 1.7 mg/dL (0.6-1.3); GLUCOSE 111 mg/dL (74-106); MAGNESIUM 1.6 mg/dL (1.8-2.4); PHOSPHORUS 3.9 mg/dL (2.5-4.9); POTASSIUM 4.8 mmol/L (3.5-5.1); SODIUM SERUM 136 mmol/L (136-145); UREA NITROGEN, BLOOD 66 mg/dL (7-18)
--- NOTE | 2020-08-01 07:40 | NUR ---
FREIGHT RECEIVER OPENING NOTES RECEIVED PATIENT ASLEEP IN BED, EASY TO AROUSE. ALERT AND ORIENTED X4. SLOVENIAN-SPEAKING. TOLERATING WELL ON ROOM AIR. NO SIGNS OR SYMPTOMS OF DISTRESS NOTED. NO COMPLAINTS OF PAIN. SAFETY MEASURES IN PLACE. SIDE RAILS X 2 RAISED. BED LOCKED AT LOWEST POSITON. CALL LIGHT WITHIN REACH. WILL CONTINUE TO MONITOR THROUGHOUT SHIFT
[2020-08-01 08:00] VITALS: BP 142/67
[2020-08-01] MEDS: Magnesium 1GM/D5W 100ML PREMIX 100 ML IV SCH ×2 (08:35→09:36)
[2020-08-01] MEDS: FUROSEMIDE 40 MG/4 ML VIAL IV SCH (08:37)
[2020-08-01] MEDS: GABAPENTIN 100 MG CAPSULE PO SCH ×3 (08:37→16:42)
[2020-08-01] MEDS: CARVEDILOL 12.5 MG TABLET PO SCH ×2 (08:37→21:55)
[2020-08-01] MEDS: hydrALAZINE HCL 50 MG TABLET PO SCH ×3 (08:40→16:48)
--- NOTE | 2020-08-01 08:50 | NUR ---
MS RN NOTES SPOKE WITH ANA ESPINO CLARIFIED REGARDING NEW ORDER MADE FOR ISOSORBIDE DINITRATE 40 MG PO BID AND MENTIONED THAT PATIENT IS CURRENTLY ON ISOSORBIDE MONONITRATE 60 MG PO DAILY, ANA ESPINO SAID HE PREFER ISOSORBIDE DINITRATE 40 MG PO BID, ANDRESSA AC PRESENT ON THE FLOOR MADE AWARE SAID TO DISCONTINUE ISOSORBIDE MONONITRATE 60 MG PO DAILY, ORDER CLARIFIED AND READ BACK WITH MD, NOTED AND CARRIED OUT.
[2020-08-01] MEDS ORDERED: ISOSORBIDE MONONITRATE (30MG) 30 MG TAB.SR.24H PO SCH (09:00)
[2020-08-01] MEDS: ISOSORBIDE DINITRATE (20MG) 20 MG TABLET PO SCH ×2 (09:06→16:42)
--- NOTE | 2020-08-01 14:33 | NUR ---
MS RN NOTES PATIENT IS AWAKE IN BED. ALERT AND ORIENTED X 3. NO SIGNS OR SYMPTOMS OF RESPIRATORY DISTRESS OR SOB NOTED. BREATHING IS EVEN AND UNLABORED. IV ACCESS INTACT FLUSHING WELL, RAC#20G. SAFETY MEASURES ARE IN PLACE, BED LOCKED AND PLACED IN LOW POSITION, SIDE RAILS UP X 2, CALL LIGHT WITHIN REACH. WILL CONTINUE TO MONITOR PATIENT THROUGHOUT SHIFT.
[2020-08-01 15:55] VITALS: BP 102/55
--- NOTE | 2020-08-01 18:45 | NUR ---
[facility] CLOSING NOTES PATIENT IS ASLEEP IN BED, EASY TO AROUSE. A/O X4. CROATIAN SPEAKING. PT STABLE ON ROOM AIR. NO SOB NOTED. NO SIGNS OR SYMPTOMS OF RESPIRATORY DISTRESS. IV ACCESS IN RAC#20 INTACT AND PATENT. VITAL SIGNS STABLE. CALL LIGHT IS WITHIN REACH. SAFETY MEASURES IN PLACE, BED IN LOW POSTION, LOCKED WITH SIDE RAILS UP X2. WILL ENDORSE TO ONCOMING SHIFT.
--- NOTE | 2020-08-01 19:05 | NUR ---
MS RN OPENING NOTES: RECEIVED PATIENT IN BED, AWAKE, A/O X3. NO S/S OF DISTRESS NOTED. CALL LIGHT WITHIN REACH. BED IN LOWEST AND LOCKED POSITION.
[2020-08-01 20:00] VITALS: BP 114/50
[2020-08-01] MEDS: ENOXAPARIN SODIUM 30 MG/0.3 ML DISP.SYRIN SQ SCH (21:56)
--- NOTE | 2020-08-01 22:35 | NUR ---
BG= 134, NO INSULIN COVERAGE NEEDED.
[2020-08-02 06:13] LABS: BASOPHILS % (AUTO) 0.6 % (0.0-2.0); EOSINOPHILS % (AUTO) 3.1 % (0.0-6.0); HEMATOCRIT 27 % (33-45); HEMOGLOBIN 9.1 g/dL (11.5-14.8); LYMPHOCYTES # (AUTO) 0.9 /CMM (0.8-4.8); LYMPHOCYTES % (AUTO) 25.4 % (20.0-44.0); MEAN CORPUSCULAR HGB CONC 33 g/dl (31.0-36.0); MEAN CORPUSCULAR VOLUME 92 fL (82-100); MONOCYTES # (AUTO) 0.5 /CMM (0.1-1.30); MONOCYTES % (AUTO) 12.5 % (2.0-12.0); NEUTROPHILS # (AUTO) 2.2 /CMM (1.8-8.9); NEUTROPHILS % (AUTO) 58.4 % (43.0-81.0); PLATELET COUNT (AUTO) 163 /CMM (150-450); RED BLOOD CELL COUNT(AUTO) 2.97 MIL/uL (4.0-5.2); WHITE BLOOD COUNT (AUTO) 3.7 K/uL (4.3-11.0)
[2020-08-02 06:27] LABS: ALANINE AMINOTRANSFERASE 17 U/L (12-78); ALBUMIN 3.3 g/dL (3.4-5.0); ALKALINE PHOSPHATASE 64 U/L (46-116); ASPARTATE AMINOTRANSFERASE 13 U/L (15-37); BILIRUBIN,TOTAL 0.3 mg/dL (0.2-1.0); CALCIUM, SERUM 8.9 mg/dL (8.5-10.1); CARBON DIOXIDE 19 mmol/L (21-32); CHLORIDE 107 mmol/L (98-107); CREATININE 1.7 mg/dL (0.6-1.3); GLUCOSE 130 mg/dL (74-106); MAGNESIUM 2.2 mg/dL (1.8-2.4); SODIUM SERUM 137 mmol/L (136-145); TOTAL PROTEIN, SERUM 6.3 g/dL (6.4-8.2); UREA NITROGEN, BLOOD 60 mg/dL (7-18)
[2020-08-02] MEDS: BLOOD SUGAR DIAGNOSTIC 1 EACH STRIP IN SCH ×4 (06:50→21:51)
--- NOTE | 2020-08-02 06:50 | NUR ---
blood sugar= 117, no insulin coverage needed.
--- NOTE | 2020-08-02 07:25 | NUR ---
[facility] SURG OPENING NOTES: Received patient in room, patient is alert and orientated x3. Patient is primarily Sinhala speaking, Patient is currently laying in bed but is able to ambulate to restroom with assistance. Upon assessment skin is intact, dry and warm to touch. Patient is on consistent carbohydrate diet per last glucose check done by nightsazft nurse done on 08/02 @ 0645 117 mg/dl no coverage required. Patient's bed is in lowest position, bed is locked and upper bilateral side rails up and call light within easy reach. Will continue to monitor patient throughout shift. Addendum: 08/02/20 at 0749 by TERE SMITH LVN additional notes: patient also has a RAC saline lock gauge #20 which was flushed and patent at time being. Will continue to monitor patient throughout shift.
[2020-08-02 08:00] VITALS: BP 130/56
[2020-08-02] MEDS: GABAPENTIN 100 MG CAPSULE PO SCH ×3 (08:39→16:40)
[2020-08-02] MEDS: CARVEDILOL 12.5 MG TABLET PO SCH ×2 (08:39→21:07)
[2020-08-02] MEDS: hydrALAZINE HCL 50 MG TABLET PO SCH ×3 (08:39→16:40)
[2020-08-02] MEDS: ISOSORBIDE DINITRATE (20MG) 20 MG TABLET PO SCH ×2 (08:40→16:41)
[2020-08-02] MEDS: FUROSEMIDE 40 MG/4 ML VIAL IV SCH (08:42)
[2020-08-02 09:08] LABS: IRON, SERUM 32 ug/dl (50-175); TOTAL IRON BINDING CAPACITY 203 ug/dl (250-450)
[2020-08-02 09:35] LABS: FERRITIN 114 ng/mL (8-388)
[2020-08-02] MEDS: INSULIN REGULAR, HUMAN 100 UNIT/ML 3 ML VIAL SQ PRN ×2 (12:05→21:56)
--- NOTE | 2020-08-02 12:16 | NUR ---
MECHANICS SUPERVISOR MS Notes: Patient's Blood Sugar Glucose was 266 mg/dl per sliding scale gave patient 12 units of Regular Insulin in Left Deltoid subcutaneous administration. HELD 1300 Hydralazine last Blood Pressure on 08/02 @ 1200 B/P: 107/40 Pulse: 60 bpm. Will continue to monitor patient throughout shift.
[2020-08-02 16:00] VITALS: BP 113/50
--- NOTE | 2020-08-02 16:30 | NUR ---
GUNSMITH APPRENTICE MS Notes: Patient's Blood Glucose @ 1630 prior to dinner is 95 mg/dl no coverage/ no insulin needed at this time.
--- NOTE | 2020-08-02 19:12 | NUR ---
MS RN OPENING PATIENT IN BED. ALERT AND ORIENTED. FRISIAN SPEAKING ONLY. NO S/S OF DISTRESS. NO C/O PAIN MARIAH. NO FLUIDS RUNNING. SAFETY IN PLACE: BED IN LOWEST, LOCKED POSITION; CALL LIGHT WITHIN REACH. WILL CONTINUE TO MONITOR.
[2020-08-02 19:52] VITALS: BP 120/49
[2020-08-02 20:16] VITALS: BP 120/49
[2020-08-02] MEDS: ENOXAPARIN SODIUM 30 MG/0.3 ML DISP.SYRIN SQ SCH (21:14)
--- NOTE | 2020-08-02 22:00 | NUR ---
MS RN NOTES PATIENT BS 203. ADMINISTERED 8 UNITS OF INSULIN PER SLIDING SCALE.
[2020-08-03 05:50] LABS: BASOPHILS % (AUTO) 0.5 % (0.0-2.0); EOSINOPHILS % (AUTO) 3.8 % (0.0-6.0); HEMATOCRIT 27 % (33-45); HEMOGLOBIN 9.1 g/dL (11.5-14.8); LYMPHOCYTES # (AUTO) 1.1 /CMM (0.8-4.8); LYMPHOCYTES % (AUTO) 26.7 % (20.0-44.0); MEAN CORPUSCULAR HGB CONC 34 g/dl (31.0-36.0); MEAN CORPUSCULAR VOLUME 91 fL (82-100); MONOCYTES # (AUTO) 0.5 /CMM (0.1-1.30); MONOCYTES % (AUTO) 13.3 % (2.0-12.0); NEUTROPHILS # (AUTO) 2.3 /CMM (1.8-8.9); NEUTROPHILS % (AUTO) 55.7 % (43.0-81.0); PLATELET COUNT (AUTO) 178 /CMM (150-450); RED BLOOD CELL COUNT(AUTO) 2.98 MIL/uL (4.0-5.2); WHITE BLOOD COUNT (AUTO) 4.1 K/uL (4.3-11.0)
[2020-08-03 06:19] LABS: CALCIUM, SERUM 8.9 mg/dL (8.5-10.1); CARBON DIOXIDE 20 mmol/L (21-32); CHLORIDE 108 mmol/L (98-107); CREATININE 1.8 mg/dL (0.6-1.3); GLUCOSE 93 mg/dL (74-106); MAGNESIUM 2.1 mg/dL (1.8-2.4); PHOSPHORUS 3.7 mg/dL (2.5-4.9); SODIUM SERUM 139 mmol/L (136-145); UREA NITROGEN, BLOOD 61 mg/dL (7-18)
[2020-08-03] MEDS: BLOOD SUGAR DIAGNOSTIC 1 EACH STRIP IN SCH (06:33)
--- NOTE | 2020-08-03 06:33 | NUR ---
MS RN NOTES PATIENT BS 103. NO INSULIN PER SLIDING SCALE.
--- NOTE | 2020-08-03 06:46 | NUR ---
MS CLOSING RN NOTES PATIENT IN BED WITH EYES CLOSED, EASY TO AROUSE. ALERT AND ORIENTED. SPANISH SPEAKING ONLY. NO FLUIDS RUNNING. NOT EXHIBITING DISTRESS NOR SHORTNESS OF BREATH, TOLERATING ROOM AIR. NO C/O PAIN. DVT PUMP IN PLACE RUNNING. PICTURE TAKE. DAILY WEIGHT 165LBS. ALL SCHED MEDS ADMINISTERED. NO SIGNIFICANT CHANGE SINCE LAST SHIFT. WILL ENDORSE CARE TO MORNING RN.
--- NOTE | 2020-08-03 07:53 | NUR ---
RN OPENING NOTE RECEIVED PATIENT IN BED, AO X 3-4, ABLE TO RESPONDS ALL STIMULI. DOES NO APPEARS DISTRESS OR DISCOMFORT. SKIN IS WARM TO TOUCH, KEEP CLEAN/DRY INTACT IV SITE. RESPIRATORY EVEN AND UNLABORED IN ROOM AIR. KEPT ELEVATED HOB FOR ENSURE AIR AND ASPIRATION PRECAUTION, ALSO LOWEST BED POSITION FOR SAFETY. CALL LIGHT WITHIN REACH, WILL CONTINUE TO MONITOR.
[2020-08-03 08:00] VITALS: BP 133/72
[2020-08-03] MEDS: GABAPENTIN 100 MG CAPSULE PO SCH (08:21)
[2020-08-03 08:22] VITALS: BP 133/72
[2020-08-03] MEDS: CARVEDILOL 12.5 MG TABLET PO SCH (08:22)
[2020-08-03] MEDS: FUROSEMIDE 40 MG/4 ML VIAL IV SCH (08:22)
[2020-08-03] MEDS: hydrALAZINE HCL 50 MG TABLET PO SCH (09:00)
[2020-08-03] MEDS: ISOSORBIDE DINITRATE (20MG) 20 MG TABLET PO SCH (09:00)
--- NOTE | 2020-08-03 10:02 | NUR ---
PATIENT BP-113/54, P-60, WILL HOLD BP MEDS.
--- NOTE | 2020-08-03 10:30 | NUR ---
PATIENT DISCHARGE TO HOME WITH HOME HEALTH, GIVEN INSTRUCTION INCLUDE PT NNOTE FOR HOME HEALTH AND CONTINUE/DISCONTINUE MEDICATION. PATIENT LEFT FACILITY ACCOMPANIED BY FAMILY MEMBER AND STAFF TO THE PRIVATE CAR. MEDICALLY IN STABLE CONDITION.
[2020-08-04] MEDS ORDERED: FUROSEMIDE 40 MG TABLET PO SCH (09:00)
== END 2020-08-03 10:45 | disposition home health service (06) | DRG 291 ==
LOC: ER 12:04 → TELE 14:46 → MED 08-01 11:53
PROVIDERS: ADMIT Internal Medicine; ATTEND Internal Medicine
DX: I13.0 Hypertensive heart and chronic kidney disease with heart failure and stage 1 through stage 4 chronic kidney disease, or unspecified chronic kidney disease (principal); I50.33 Acute on chronic diastolic (congestive) heart failure; N17.0 Acute kidney failure with tubular necrosis; D68.59 Other primary thrombophilia; E87.1 Hypo-osmolality and hyponatremia; D63.8 Anemia in other chronic diseases classified elsewhere; E11.22 Type 2 diabetes mellitus with diabetic chronic kidney disease; E87.5 Hyperkalemia; F32.9 Major depressive disorder, single episode, unspecified; F41.9 Anxiety disorder, unspecified; G47.00 Insomnia, unspecified; G89.29 Other chronic pain; I25.10 Atherosclerotic heart disease of native coronary artery without angina pectoris; I27.20 Pulmonary hypertension, unspecified; I48.91 Unspecified atrial fibrillation; M19.90 Unspecified osteoarthritis, unspecified site; N18.9 Chronic kidney disease, unspecified; Z79.01 Long term (current) use of anticoagulants; Z82.49 Family history of ischemic heart disease and other diseases of the circulatory system; Z83.3 Family history of diabetes mellitus; Z85.3 Personal history of malignant neoplasm of breast; Z90.11 Acquired absence of right breast and nipple; M81.0 Age-related osteoporosis without current pathological fracture; I34.0 Nonrheumatic mitral (valve) insufficiency; Z74.09 Other reduced mobility; Z95.810 Presence of automatic (implantable) cardiac defibrillator; Z79.4 Long term (current) use of insulin; E83.42 Hypomagnesemia; Z20.822 Contact with and (suspected) exposure to COVID-19
CPT/HCPCS: 36415; 71045-TC; 73501; 80048-TC; 80053-TC; 80076-TC; 82728-TC; 82962-TC; 83540-TC; 83735-TC; 83880; 84100-TC; 84484-TC; 85025-TC; 85730-TC; 87081-TC; 97116-TC; 97530-TC; C9803; G0378; J1650; J1815; J1940; J3475; J3490

== ENCOUNTER 2020-09-05 22:33 | Inpatient (IN) | payer MEDICARE, OTHER ==
[~2020-09-05] VITALS: Ht 157.5 cm; Wt 81.6 kg
[~2020-09-05 22:33] MED LIST changes: +ACET325T53 PO; -APIX2.5T PO; -BENA40TA8 PO; -SPIR50TA PO
--- NOTE | 2020-09-05 22:52 | NUR ---
PT BIBDAUGHTER C/O BILATERAL LOWER EDEMA X 2 WEEKS. PT AAOX4 BREATHING EVENLY AND UNLABORED. PER DAUGHTER, PT TAKES LASIX, BUT HER "LEGS ARE STILL SWELLING". PT ATTACHED TO MONITOR AND POX. AT BEDSIDE. PT CHANGED INTO GOWN AND GIVEN BLANKET AND CALL LIGHT WITHIN REACH
[2020-09-05] MEDS ORDERED: FUROSEMIDE 40 MG/4 ML VIAL IV ONE (23:00)
--- NOTE | 2020-09-05 23:05 | NUR ---
BLOOD OBTAINED AND SENT TO LAB
[2020-09-05 23:11] LABS: BASOPHILS % (AUTO) 0.5 % (0.0-2.0); EOSINOPHILS % (AUTO) 5.5 % (0.0-6.0); HEMATOCRIT 28 % (33-45); HEMOGLOBIN 9.4 g/dL (11.5-14.8); LYMPHOCYTES # (AUTO) 1.1 K/uL (0.8-4.8); LYMPHOCYTES % (AUTO) 20.5 % (20.0-44.0); MEAN CORPUSCULAR HGB CONC 34 g/dl (31.0-36.0); MEAN CORPUSCULAR VOLUME 91 fL (82-100); MONOCYTES # (AUTO) 0.5 K/uL (0.1-1.30); MONOCYTES % (AUTO) 9.3 % (2.0-12.0); NEUTROPHILS # (AUTO) 3.3 K/uL (1.8-8.9); NEUTROPHILS % (AUTO) 64.2 % (43.0-81.0); PLATELET COUNT (AUTO) 154 K/uL (150-450); RED BLOOD CELL COUNT(AUTO) 3.09 MIL/uL (4.0-5.2); WHITE BLOOD COUNT (AUTO) 5.1 K/uL (4.3-11.0)
[2020-09-05] MEDS ORDERED: FUROSEMIDE 40 MG/4 ML VIAL ONE (23:12)
[2020-09-05 23:22] LABS: CALCIUM, SERUM 8.9 mg/dL (8.5-10.1); CARBON DIOXIDE 22 mmol/L (21-32); CHLORIDE 102 mmol/L (98-107); CREATININE 2.1 mg/dL (0.6-1.3); GLUCOSE 264 mg/dL (74-106); POTASSIUM 4.2 mmol/L (3.5-5.1); SODIUM SERUM 136 mmol/L (136-145)
--- NOTE | 2020-09-05 23:23 | NUR ---
BUN 97
--- NOTE | 2020-09-05 23:24 | NUR ---
XRAY AT BEDSIDE
[2020-09-05 23:35] LABS: ALANINE AMINOTRANSFERASE 23 U/L (12-78); ALBUMIN 3.9 g/dL (3.4-5.0); ALKALINE PHOSPHATASE 69 U/L (46-116); ASPARTATE AMINOTRANSFERASE 16 U/L (15-37); BILIRUBIN,DIRECT 0.1 mg/dL (0.0-0.2); BILIRUBIN,TOTAL 0.3 mg/dL (0.2-1.0); TOTAL PROTEIN, SERUM 7.1 g/dL (6.4-8.2)
[2020-09-05 23:40] LABS: UREA NITROGEN, BLOOD 97 mg/dL (7-18)
--- NOTE | 2020-09-05 23:49 | NUR ---
[facility] saturation diver - Marine ADAN paged via exchange
--- NOTE | 2020-09-06 00:10 | NUR ---
CALLED ANURADHA TO HAVE IMAGES READ
--- NOTE | 2020-09-06 00:30 | NUR ---
report given to Nicole URBANO, continue plan of care.
[2020-09-06 00:40] VITALS: BP 130/74
--- NOTE | 2020-09-06 00:45 | NUR ---
DONY TRANSFERRED PER ACLS PROTOCOL
[2020-09-06] MEDS ORDERED: ONDANSETRON HCL/PF 4 MG/2 ML VIAL IVP PRN (01:00)
[2020-09-06] MEDS ORDERED: ZOLPIDEM TARTRATE 5 MG TABLET PO PRN (01:00)
[2020-09-06] MEDS ORDERED: Z GUARD REMEDY 2 OZ OINT TP PRN (01:00)
[2020-09-06] MEDS ORDERED: MAGNESIUM HYDROXIDE 30 ML UDC PO PRN (01:00)
[2020-09-06] MEDS ORDERED: ACETAMINOPHEN 325 MG TABLET PO PRN (01:00)
--- NOTE | 2020-09-06 01:11 | NUR ---
MS/TELE/RN RECEIVED PATIENT FROM E.R. [facility]IA [facility]. PATIENT WAS AWAKE, ALERT, AND ORIENTED, COMFORTABLE, NO C/O PAIN, NO DISTRESS NOTED, MADE COMFORTABLE IN BED. I WAS UNABLE TO OBTAIN ADMISSION INFORMATIONS FROM THE PATIENT DUE TO LANGUAGE BARRIER BUT ABLE TO UNDERSTAND SOME MAORI, INFORMATIONS WERE OBTAINED FROM THE E.R'S DOCUMENTATION. FALL PRECAUTIONS IMPLEMENTED. WILL MONITOR.
[2020-09-06] MEDS ORDERED: DEXTROSE 50%-WATER 50 ML DISP.SYRIN IV PRN (02:30)
[2020-09-06 04:00] VITALS: BP 133/66
--- NOTE | 2020-09-06 06:03 | NUR ---
MS/TELE/RN PATIENT IS AWAKE, COMFORTABLE, NO CHANGE IN CONDITION, ALL NEEDS ATTENDED AT THIS TIME, WILL CONTINUE TO MONITOR.
--- NOTE | 2020-09-06 07:12 | NUR ---
RN NOTES RECEIVED PATIENT IN BED, AWAKE AND VERBALLY RESPONSIVE. ALERT AND ORIENTED, X4, FAROESE-SPEAKING, ABLE TO MAKE SIMPLE NEEDS KNOWN. BREATHING EVEN AND UNLABORED, TOLERATING ROOM AIR. IV LINE ON RIGHT WRIST #20 INTACT AND PATENT. SAFETY MEASURES IN PLACE. WILL CONTINUE TO MONITOR.
[2020-09-06] MEDS: INSULIN REGULAR, HUMAN 100 UNIT/ML 3 ML VIAL SQ PRN ×3 (07:16→21:29)
[2020-09-06] MEDS: BLOOD SUGAR DIAGNOSTIC 1 EACH STRIP IN SCH ×4 (07:16→21:14)
[2020-09-06 08:00] VITALS: BP 154/63
[2020-09-06] MEDS: ISOSORBIDE MONONITRATE (30MG) 30 MG TAB.SR.24H PO SCH (08:30)
[2020-09-06] MEDS: CARVEDILOL 12.5 MG TABLET PO SCH ×2 (08:30→16:29)
[2020-09-06] MEDS: GABAPENTIN 100 MG CAPSULE PO SCH ×3 (08:30→16:29)
[2020-09-06] MEDS: FUROSEMIDE 100 MG/10 ML VIAL IV SCH ×3 (09:58→17:04)
[2020-09-06] MEDS: HEPARIN SODIUM, PORCINE 5000 UNITS/1 ML VIAL SQ SCH ×2 (09:59→21:15)
--- NOTE | 2020-09-06 14:34 | NUR ---
RN NOTES PATIENT'S DTR AND GRANDSON CURRENTLY AT BEDSIDE, ABLE TO TRANSLATE FOR PATIENT. UNDERSTANDS LITTLE VENEZUELAN AND PREDOMINANTLY HONDURAN-SPEAKING. PER DTR, PATIENT IS ABLE TO AMBULATE TO BATHROOM AND APPROXIMATE WEIGHT IS 172-174LBS. BED SCALE SHOWED PATIENT WEIGHT OF 176LBS AT THIS TIME. WILL CONTINUE TO MONITOR
[2020-09-06 16:00] VITALS: BP 130/56
--- NOTE | 2020-09-06 16:02 | NUR ---
RN NOTES URINE SPECIMEN COLLECTED AND PLACED IN REFRIGERATOR.
--- NOTE | 2020-09-06 19:05 | NUR ---
RN NOTES PATIENT RESTING IN BED, NOT IN ACUTE DISTRESS, ABLE TO AMBULATE TO BATHROOM W/O GAIT CHANGES. DUE MEDS GIVEN. SAFETY MEASURES MAINTAINED. ENDORSED TO DOCTOR OF MEDICINE RN FOR RILEY.
--- NOTE | 2020-09-06 19:30 | NUR ---
MS/RN OPENING NOTE RECEIVED PATIENT RESTING IN BED. AWAKE, ALERT AND ORIENTED X 4. ABLE TO MAKE NEEDS KNOWN. DENIES PAIN AT THIS TIME. CONTINUES ON ROOM AIR WITH NO S/SX OF RESPIRATORY DISTRESS NOTED. IV ACCESS TO RIGHT WRIST #20G INTACT, PATENT AND SALINE LOCKED. CONTINUES ON CARDIAC DIET WITH STRICT I AND O. CONTINUES ON DAILY WEIGHTS. CALL LIGHT WITHIN REACH. ASPIRATION, FALL AND SAFETY PRECAUTIONS MAINTAINED. WILL CONTINUE TO MONITOR.
[2020-09-06 20:12] VITALS: BP 146/57
[2020-09-06 23:24] LABS: BILIRUBIN,URINE NEGATIVE (NEGATIVE); COLOR,URINE YELLOW (YELLOW); LEUKOCYTE ESTERASE ,URINE NEGATIVE (NEGATIVE); NITRITE, URINE NEGATIVE (NEGATIVE); PH,URINE 5.5 (5.0-8.0); PROTEIN,URINE NEGATIVE (NEGATIVE); UGLUCOSE NEGATIVE (NEGATIVE); UROBILINOGEN,URINE 0.2 EU/dL (0.2)
[2020-09-06 23:29] LABS: CREATININE, URINE 21.8 MG/DL (30.0-125.0); URINE TOTAL PROTEIN 2.8 mg/dL (0-11.9)
[2020-09-06 23:37] LABS: EOSINOPHIL,URINE None Seen
[2020-09-07] MEDS: BLOOD SUGAR DIAGNOSTIC 1 EACH STRIP IN SCH ×4 (06:22→22:39)
--- NOTE | 2020-09-07 06:30 | NUR ---
MS/RN CLOSING NOTE PATIENT CURRENTLY RESTING IN BED. AWAKE, ALERT AND ORIENTED X 4. ABLE TO MAKE NEEDS KNOWN. DENIES PAIN AT THIS TIME. CONTINUES ON ROOM AIR WITH NO S/SX OF RESPIRATORY DISTRESS NOTED. IV ACCESS TO RIGHT WRIST #20G INTACT, PATENT AND SALINE LOCKED. CONTINUES ON CARDIAC DIET WITH STRICT I AND O. CONTINUES ON DAILY WEIGHTS. CALL LIGHT WITHIN REACH. ASPIRATION, FALL AND SAFETY PRECAUTIONS MAINTAINED. WILL ENDORSE PLAN OF CARE TO ONCOMING SHIFT.
[2020-09-07 06:36] LABS: BASOPHILS % (AUTO) 0.6 % (0.0-2.0); EOSINOPHILS % (AUTO) 4.8 % (0.0-6.0); HEMATOCRIT 27 % (33-45); HEMOGLOBIN 9.1 g/dL (11.5-14.8); LYMPHOCYTES % (AUTO) 20.5 % (20.0-44.0); MEAN CORPUSCULAR HGB CONC 34 g/dl (31.0-36.0); MEAN CORPUSCULAR VOLUME 91 fL (82-100); MONOCYTES # (AUTO) 0.4 K/uL (0.1-1.30); MONOCYTES % (AUTO) 8.5 % (2.0-12.0); NEUTROPHILS # (AUTO) 3.2 K/uL (1.8-8.9); NEUTROPHILS % (AUTO) 65.6 % (43.0-81.0); PLATELET COUNT (AUTO) 143 K/uL (150-450); RED BLOOD CELL COUNT(AUTO) 2.97 MIL/uL (4.0-5.2); WHITE BLOOD COUNT (AUTO) 4.9 K/uL (4.3-11.0)
[2020-09-07 07:15] LABS: CHOLESTEROL 162 mg/dL (<200); CREATINE KINASE, TOTAL 36 U/L (26-192); HDL CHOLESTEROL 44 mg/dL (40-60); LDL 100 mg/dL (0-99); TRIGLYCERIDES 68 mg/dL (30-150)
--- NOTE | 2020-09-07 07:15 | NUR ---
RN OPENING NOTE RECEIVED PATIENT IN BED. A/O X4. ON ROOM AIR, NO SOB NOTED. NO S/S OF RESPIRATORY DISTRESS. DENIES ANY PAIN OR DISCOMFORT AT THIS TIME. IV ACCESS ON R WRIST #20 G, INTACT. SAFETY MEASURES MAINTAINED. BED IN LOWEST POSITION, BRAKES LOCKED. SIDE RAILS UP X2. CALL LIGHT WITHIN REACH. WILL CONTINUE PLAN OF CARE.
[2020-09-07 07:25] LABS: ALANINE AMINOTRANSFERASE 17 U/L (12-78); ALBUMIN 3.6 g/dL (3.4-5.0); ALKALINE PHOSPHATASE 51 U/L (46-116); ASPARTATE AMINOTRANSFERASE 15 U/L (15-37); BILIRUBIN,TOTAL 0.4 mg/dL (0.2-1.0); CARBON DIOXIDE 25 mmol/L (21-32); CHLORIDE 107 mmol/L (98-107); CREATININE 1.6 mg/dL (0.6-1.3); GLUCOSE 106 mg/dL (74-106); MAGNESIUM 1.8 mg/dL (1.8-2.4); PHOSPHORUS 4.2 mg/dL (2.5-4.9); POTASSIUM 4.1 mmol/L (3.5-5.1); SODIUM SERUM 142 mmol/L (136-145); TOTAL PROTEIN, SERUM 6.7 g/dL (6.4-8.2)
[2020-09-07 07:33] LABS: UREA NITROGEN, BLOOD 83 mg/dL (7-18)
[2020-09-07 08:00] VITALS: BP 131/50
[2020-09-07] MEDS: CARVEDILOL 12.5 MG TABLET PO SCH ×2 (08:42→16:08)
[2020-09-07] MEDS: ISOSORBIDE MONONITRATE (30MG) 30 MG TAB.SR.24H PO SCH (08:42)
[2020-09-07] MEDS: GABAPENTIN 100 MG CAPSULE PO SCH ×3 (08:42→16:08)
[2020-09-07] MEDS: HEPARIN SODIUM, PORCINE 5000 UNITS/1 ML VIAL SQ SCH ×2 (08:43→22:37)
[2020-09-07] MEDS: FUROSEMIDE 100 MG/10 ML VIAL IV SCH ×3 (10:07→17:00)
[2020-09-07] MEDS: INSULIN REGULAR, HUMAN 100 UNIT/ML 3 ML VIAL SQ PRN ×3 (11:26→22:49)
[2020-09-07 16:00] VITALS: BP 126/54
--- NOTE | 2020-09-07 18:20 | NUR ---
RN CLOSING NOTE PATIENT RESTING IN BED. A/O X4. ON ROOM AIR, SATURATING WELL AT 97%. NO SOB NOTED. NO S/S OF RESPIRATORY DISTRESS. NO REPORTS PAIN OR DISCOMFORT AT THIS TIME. IV ACCESS ON R WRIST #20 G, INTACT AND PATENT. ALL DUE MEDS GIVEN ORDERED. ALL NEEDS HAVE BEEN MET AND ATTENDED. SAFETY MEASURES MAINTAINED. BED IN LOWEST POSITION, BRAKES LOCKED. SIDE RAILS UP X2. KEPT CALL LIGHT WITHIN REACH. WILL ENDORSE CONTINUITY OF CARE TO ONCOMING SHIFT.
--- NOTE | 2020-09-07 19:35 | NUR ---
RECEIVED IN BED AWAKE WAVED TO ME WHEN I INTRODUCED WHO I WAS SHE IS SMILING RESP EVEN AND UNLABORED ROOM AIR CALL LIGHT WITHIN HER REACH BED ALARM ON
[2020-09-07 19:57] VITALS: BP 127/62
[2020-09-07 20:00] VITALS: BP 127/62
--- NOTE | 2020-09-08 04:24 | NUR ---
ending notes: SLEPT THRU THE NIGHT ON ROOM AIR THRU THE NIGHT NO SOB SATS 97 -98% AMBULATES TO THE BATHROOM STRICT I /O ORDERED CHARTED EACH TIME SHE VOIDED AM WEIGHT 180 LBS BEDSCALE
[2020-09-08] MEDS: BLOOD SUGAR DIAGNOSTIC 1 EACH STRIP IN SCH ×4 (06:27→21:50)
[2020-09-08] MEDS: INSULIN REGULAR, HUMAN 100 UNIT/ML 3 ML VIAL SQ PRN ×3 (06:30→21:49)
[2020-09-08 06:31] LABS: BASOPHILS % (AUTO) 0.5 % (0.0-2.0); EOSINOPHILS % (AUTO) 4.2 % (0.0-6.0); HEMATOCRIT 27 % (33-45); HEMOGLOBIN 9.1 g/dL (11.5-14.8); LYMPHOCYTES % (AUTO) 19.5 % (20.0-44.0); MEAN CORPUSCULAR HGB CONC 34 g/dl (31.0-36.0); MEAN CORPUSCULAR VOLUME 90 fL (82-100); MONOCYTES # (AUTO) 0.5 K/uL (0.1-1.30); MONOCYTES % (AUTO) 10.1 % (2.0-12.0); NEUTROPHILS # (AUTO) 3.4 K/uL (1.8-8.9); NEUTROPHILS % (AUTO) 65.7 % (43.0-81.0); PLATELET COUNT (AUTO) 147 K/uL (150-450); RED BLOOD CELL COUNT(AUTO) 2.96 MIL/uL (4.0-5.2); WHITE BLOOD COUNT (AUTO) 5.1 K/uL (4.3-11.0)
[2020-09-08 06:49] LABS: ALANINE AMINOTRANSFERASE 21 U/L (12-78); ALBUMIN 3.6 g/dL (3.4-5.0); ALKALINE PHOSPHATASE 56 U/L (46-116); ASPARTATE AMINOTRANSFERASE 14 U/L (15-37); BILIRUBIN,TOTAL 0.4 mg/dL (0.2-1.0); CALCIUM, SERUM 9.2 mg/dL (8.5-10.1); CARBON DIOXIDE 27 mmol/L (21-32); CHLORIDE 105 mmol/L (98-107); CREATININE 1.5 mg/dL (0.6-1.3); GLUCOSE 152 mg/dL (74-106); MAGNESIUM 1.8 mg/dL (1.8-2.4); PHOSPHORUS 3.7 mg/dL (2.5-4.9); POTASSIUM 4.1 mmol/L (3.5-5.1); SODIUM SERUM 142 mmol/L (136-145); TOTAL PROTEIN, SERUM 6.9 g/dL (6.4-8.2); UREA NITROGEN, BLOOD 76 mg/dL (7-18)
--- NOTE | 2020-09-08 08:00 | NUR ---
MS RN OPENING NOTE RECEIVED PATIENT LYING IN BED, EATING BREAKFAST. A/O X4. ON ROOM AIR, NO SOB NOTED. NO DISTRESS OR DISCOMFORT NOTED. NO COMPLAINTS OF PAIN. IV ACCESS TO R WRIST #20 - SALINE LOCKED. PATIENT IS AMBULATORY. SAFETY MEASURES IN PLACE. CALL LIGHT WITHIN REACH. WILL CONTINUE TO MONITOR.
[2020-09-08] MEDS: HEPARIN SODIUM, PORCINE 5000 UNITS/1 ML VIAL SQ SCH ×2 (08:24→21:34)
[2020-09-08] MEDS: ISOSORBIDE MONONITRATE (30MG) 30 MG TAB.SR.24H PO SCH (08:54)
[2020-09-08] MEDS: CARVEDILOL 12.5 MG TABLET PO SCH ×2 (08:54→16:39)
[2020-09-08] MEDS: GABAPENTIN 100 MG CAPSULE PO SCH ×3 (08:54→16:27)
[2020-09-08] MEDS: FUROSEMIDE 100 MG/10 ML VIAL IV SCH ×3 (10:12→16:31)
--- NOTE | 2020-09-08 17:27 | NUR ---
PATIENT REFUSING INSULIN. BLOOD SUGAR IS 139. CHARGE NURSE AWARE.
--- NOTE | 2020-09-08 19:44 | NUR ---
MS RN Opening Notes Patient was last seen awake standing in her room, she's ambulatory. Patient is alert and oriented x4. Patient's on room air with no respiratory distress noted. Patient's IV access on her left forearm is intact and patent. Patient's in no acute distress at this time. Safety measures in place: Bed locked, side rails up x2, and call light within reach of the patient. Will continue to monitor the patient.
[2020-09-08 20:00] VITALS: BP 114/69
--- NOTE | 2020-09-08 21:43 | NUR ---
MS RN Notes Patient's blood sugar at 2142 was 244 mg/dL.
--- NOTE | 2020-09-09 06:39 | NUR ---
MS RN Notes Patient's blood sugar at 0639 was 149 mg/dL. Patient refused to have regular insulin given for that blood sugar value. Will continue to monitor the patient.
[2020-09-09 07:11] LABS: BASOPHILS % (AUTO) 0.3 % (0.0-2.0); EOSINOPHILS % (AUTO) 2.6 % (0.0-6.0); HEMATOCRIT 25 % (33-45); HEMOGLOBIN 8.5 g/dL (11.5-14.8); LYMPHOCYTES # (AUTO) 1.1 K/uL (0.8-4.8); LYMPHOCYTES % (AUTO) 21.2 % (20.0-44.0); MEAN CORPUSCULAR HGB CONC 34 g/dl (31.0-36.0); MEAN CORPUSCULAR VOLUME 90 fL (82-100); MONOCYTES # (AUTO) 0.5 K/uL (0.1-1.30); MONOCYTES % (AUTO) 10.1 % (2.0-12.0); NEUTROPHILS # (AUTO) 3.3 K/uL (1.8-8.9); NEUTROPHILS % (AUTO) 65.8 % (43.0-81.0); PLATELET COUNT (AUTO) 129 K/uL (150-450); RED BLOOD CELL COUNT(AUTO) 2.81 MIL/uL (4.0-5.2)
[2020-09-09] MEDS: BLOOD SUGAR DIAGNOSTIC 1 EACH STRIP IN SCH ×2 (07:15→12:41)
--- NOTE | 2020-09-09 07:33 | NUR ---
MS RN Closing Notes Patient was last seen sleeping in her room. Patient is alert and oriented x4. Patient's on room air with no respiratory distress noted. Patient's IV access on her left forearm is intact and patent. Patient's in no acute distress at this time. Safety measures in place: Bed locked, side rails up x3, bed alarm on, and call light within reach of the patient. Endorsed care to the day shift nurse.
[2020-09-09 08:00] VITALS: BP 123/44
[2020-09-09 08:06] LABS: CALCIUM, SERUM 8.8 mg/dL (8.5-10.1); CARBON DIOXIDE 26 mmol/L (21-32); CHLORIDE 108 mmol/L (98-107); CREATININE 1.6 mg/dL (0.6-1.3); GLUCOSE 163 mg/dL (74-106); MAGNESIUM 1.9 mg/dL (1.8-2.4); SODIUM SERUM 143 mmol/L (136-145)
[2020-09-09 08:21] LABS: UREA NITROGEN, BLOOD 80 mg/dL (7-18)
[2020-09-09 09:00] LABS: PHOSPHORUS 3.7 mg/dL (2.5-4.9)
--- NOTE | 2020-09-09 09:43 | NUR ---
WOUND CARE CONSULT: PT PRESENTS WITH RED, SWOLLEN AND TENDER RT LOWER LEG WITH RAISED VEINS AND DISCOLORATION, PRESENT ON ADMISSION. DPM CONSULT CALLED TO DR CHRISTIANSON. CURRENT BOB SCORE IS 19. PT DENIES NEED FOR FULL SKIN ASSESSMENT. MD IN AGREEMENT WITH PLAN OF CARE. Addendum: 09/09/20 at 3664 by FLO HANDY WNDNU Amended: Links added.
[2020-09-09 09:59] VITALS: BP 152/83
[2020-09-09] MEDS: GABAPENTIN 100 MG CAPSULE PO SCH ×2 (09:59→12:37)
[2020-09-09] MEDS: CARVEDILOL 12.5 MG TABLET PO SCH (09:59)
[2020-09-09] MEDS: ISOSORBIDE MONONITRATE (30MG) 30 MG TAB.SR.24H PO SCH (09:59)
[2020-09-09] MEDS: HEPARIN SODIUM, PORCINE 5000 UNITS/1 ML VIAL SQ SCH (10:01)
[2020-09-09] MEDS ORDERED: FURO-144 PO (12:27)
[2020-09-09] MEDS: INSULIN REGULAR, HUMAN 100 UNIT/ML 3 ML VIAL SQ PRN (12:42)
--- NOTE | 2020-09-09 15:29 | NUR ---
Pt discharged per orders. IV removed, arm band cut off, pt driven home by her daughter. All discharge instructions and education printed and reviewed with patient prior to discharge. Discharge paperwork signed by patient. Pt taken to private vehicle via wheelchair accompanied by nurse at 1450.
== END 2020-09-09 14:50 | disposition home or self-care (01) | DRG 291 ==
LOC: ER 22:33 → TELE 09-06 00:33 → MED 09-06 08:45
PROVIDERS: ADMIT Nurse Practitioner Acute Care; ATTEND Internal Medicine
DX: I13.0 Hypertensive heart and chronic kidney disease with heart failure and stage 1 through stage 4 chronic kidney disease, or unspecified chronic kidney disease (principal); I50.33 Acute on chronic diastolic (congestive) heart failure; J96.01 Acute respiratory failure with hypoxia; N17.0 Acute kidney failure with tubular necrosis; D68.59 Other primary thrombophilia; E11.22 Type 2 diabetes mellitus with diabetic chronic kidney disease; N18.9 Chronic kidney disease, unspecified; I48.91 Unspecified atrial fibrillation; D63.8 Anemia in other chronic diseases classified elsewhere; I25.10 Atherosclerotic heart disease of native coronary artery without angina pectoris; M19.90 Unspecified osteoarthritis, unspecified site; Z95.0 Presence of cardiac pacemaker; Z90.11 Acquired absence of right breast and nipple; Z85.3 Personal history of malignant neoplasm of breast; Z83.3 Family history of diabetes mellitus; Z82.49 Family history of ischemic heart disease and other diseases of the circulatory system; Z82.3 Family history of stroke; Z79.4 Long term (current) use of insulin; Z79.899 Other long term (current) drug therapy; M81.0 Age-related osteoporosis without current pathological fracture; I27.20 Pulmonary hypertension, unspecified; F41.9 Anxiety disorder, unspecified; F32.9 Major depressive disorder, single episode, unspecified; G47.00 Insomnia, unspecified; E66.9 Obesity, unspecified; Z68.32 Body mass index [BMI] 32.0-32.9, adult; Z74.09 Other reduced mobility; K57.90 Diverticulosis of intestine, part unspecified, without perforation or abscess without bleeding; K29.70 Gastritis, unspecified, without bleeding; K80.20 Calculus of gallbladder without cholecystitis without obstruction; G89.29 Other chronic pain; E53.8 Deficiency of other specified B group vitamins
CPT/HCPCS: 36415; 71045-TC; 80048-TC; 80053-TC; 80061-TC; 80076-TC; 82550-TC; 82570-TC; 82962-TC; 83735-TC; 83880; 83970; 84100-TC; 84155-TC; 84300-TC; 84484-TC; 85025-TC; 85730-TC; 87081-TC; C9803; G0378; J1644; J1815; J1940

== ENCOUNTER 2022-06-03 10:32 | Inpatient (IN) | payer MEDICARE, OTHER ==
[~2022-06-03] VITALS: Ht 152.4 cm; Wt 68.6 kg
--- NOTE | 2022-06-03 10:35 | NUR ---
RECEIVED PT 82 YRS FEMALE CAME FROM HOME ACCOMPANY BY SON C/O SOB SINCE LAST night x1 days with mild to mod respratory distress AND both lower extramity swallen
--- NOTE | 2022-06-03 10:45 | NUR ---
INSERTED ANGO CATHETER G 20 ON RT AC BLOOD DROW AND SENT TO LAB AT BED SIDE
--- NOTE | 2022-06-03 10:50 | NUR ---
C XRAY DONE AT BED SIDE
[2022-06-03 11:48] LABS: BASOPHILS % (AUTO) 0.3 % (0.0-2.0); EOSINOPHILS % (AUTO) 1.1 % (0.0-6.0); HEMATOCRIT 28 % (33-45); HEMOGLOBIN 9.1 g/dL (11.5-14.8); LYMPHOCYTES # (AUTO) 0.6 K/uL (0.8-4.8); LYMPHOCYTES % (AUTO) 9.9 % (20.0-44.0); MEAN CORPUSCULAR HGB CONC 32 g/dl (31.0-36.0); MEAN CORPUSCULAR VOLUME 92 fL (82-100); MONOCYTES # (AUTO) 0.4 K/uL (0.1-1.30); MONOCYTES % (AUTO) 7.5 % (2.0-12.0); NEUTROPHILS # (AUTO) 4.6 K/uL (1.8-8.9); NEUTROPHILS % (AUTO) 81.2 % (43.0-81.0); PLATELET COUNT (AUTO) 149 K/uL (150-450); WHITE BLOOD COUNT (AUTO) 5.6 K/uL (4.3-11.0)
[2022-06-03 11:54] LABS: CALCIUM, SERUM 8.8 mg/dL (8.5-10.1); CARBON DIOXIDE 16 mmol/L (21-32); CHLORIDE 114 mmol/L (98-107); CREATININE 1.6 mg/dL (0.6-1.3); GLUCOSE 122 mg/dL (74-106); POTASSIUM 5.3 mmol/L (3.5-5.1); SODIUM SERUM 141 mmol/L (136-145); UREA NITROGEN, BLOOD 66 mg/dL (7-18)
[2022-06-03 12:07] LABS: ALANINE AMINOTRANSFERASE 30 U/L (12-78); ALBUMIN 3.4 g/dL (3.4-5.0); ALKALINE PHOSPHATASE 95 U/L (46-116); ASPARTATE AMINOTRANSFERASE 23 U/L (15-37); BILIRUBIN,DIRECT 0.2 mg/dL (0.0-0.2); BILIRUBIN,TOTAL 0.4 mg/dL (0.2-1.0); TOTAL PROTEIN, SERUM 6.8 g/dL (6.4-8.2)
[2022-06-03] MEDS ORDERED: FUROSEMIDE 40 MG/4 ML VIAL IV ONE (13:00)
[2022-06-03] MEDS ORDERED: BENA40TA8 PO (13:10)
[2022-06-03] MEDS ORDERED: FURO80TA3 PO (13:10)
[2022-06-03] MEDS ORDERED: INSU100V42 SQ (13:10)
[2022-06-03] MEDS ORDERED: SPIR50TA5 PO (13:16)
[2022-06-03] MEDS ORDERED: POTA8TAB3 PO (13:16)
[2022-06-03] MEDS ORDERED: INSU10VI3 SQ (13:16)
[2022-06-03] MEDS ORDERED: FUROSEMIDE 40 MG/4 ML VIAL ONE (13:25)
[2022-06-03] MEDS ORDERED: MAGNESIUM HYDROXIDE 30 ML UDC PO PRN (14:00)
[2022-06-03] MEDS ORDERED: ACETAMINOPHEN 325 MG TABLET PO PRN (14:00)
[2022-06-03] MEDS ORDERED: Z GUARD REMEDY 4 OZ OINT TP PRN (14:00)
[2022-06-03] MEDS ORDERED: ONDANSETRON HCL/PF 4 MG/2 ML VIAL IVP PRN (14:00)
[2022-06-03] MEDS ORDERED: MAG HYDROX/AL HYDROX/SIMETH 30 ML UDC PO PRN (14:00)
--- NOTE | 2022-06-03 14:00 | NUR ---
COVID SWAB SENT TO LAB
--- NOTE | 2022-06-03 14:21 | NUR ---
room 324-1 , admitting aware
--- NOTE | 2022-06-03 14:24 | NUR ---
Chidi chapman in [facility] - 06/03/22 at 1533 by ABILIO UA SENT TO LAB
[2022-06-03] MEDS ORDERED: DEXTROSE 50%-WATER 50 ML DISP.SYRIN IV PRN (14:30)
--- NOTE | 2022-06-03 15:00 | NUR ---
US IN LOWER EXTRAMITY DONE
[2022-06-03] MEDS ORDERED: ENOXAPARIN SODIUM 40 MG/0.4 ML DISP.SYRIN SQ ONE (15:03)
[2022-06-03] MEDS: ENOXAPARIN SODIUM 30 MG/0.3 ML DISP.SYRIN SQ SCH (15:05)
--- NOTE | 2022-06-03 15:19 | NUR ---
HAND OFF ALEXANDER URBANO TO ROOM 324 -A VIA JOSE
--- NOTE | 2022-06-03 15:50 | NUR ---
MS RN NOTES ADMITTED PATIENT FROM ER REPORT GIVEN BY YOEL URBANO, NO ACUTE DISTRESS NOTED, BREATHING UNLABORED, NO SOB NOTED. ALERT ORIENTED X4. ORIENTED TO THE ROOM , SHOW HOW TO UE CALL LIGHT, PLACED WITHIN REACH. SAFETY MEASURES IN PLACE. PLACED IN PHARMACY PICKING TECHNICIAN V PACING @60'S. NEEDS ATTENDED. WILL CONTINUE TO MONITOR ACCORDINGLY.
[2022-06-03 16:00] VITALS: BP 111/68
[2022-06-03] MEDS: INSULIN LISPRO/ASPART 100 UNIT/ML CARTRIDGE SQ SCH (17:00)
[2022-06-03] MEDS: FUROSEMIDE 40 MG/4 ML VIAL IV SCH (17:27)
[2022-06-03] MEDS: CARVEDILOL 12.5 MG TABLET PO SCH (17:28)
[2022-06-03] MEDS: BLOOD SUGAR DIAGNOSTIC 1 EACH STRIP VI SCH ×2 (17:30→21:53)
--- NOTE | 2022-06-03 17:30 | NUR ---
CIVIL ENGINEERING DESIGN DRAFTSPERSON NOTES HELD LISPRO 10 UNITS, BLOOD SUGAR 107, PATIENT DID NOT EAT DINNER , ONLY HAD MILK AND SOUP
--- NOTE | 2022-06-03 18:33 | NUR ---
OFFICE SECRETARY NOTES PATIENT IN BED ALERT ORIENTED X 4. NO ACUTE DISTRESS NOTED, BREATHING UNLABORED,DENIED ANY PAIN. ON SECRETARY OFFICE CLERK , V PACING @60'S. IV ACCESS PATENT AND INTACT, NO REDNESS, NO SWELLING NOTED. NEEDS ATTENDED AND ANTICIPATED. SAFETY MEASURES IN PLACE. CALL LIGHT WITHIN REACH. WILL ENDORSE TO NIGHT NURSE FOR CONTINUITY OF CARE.
--- NOTE | 2022-06-03 19:30 | NUR ---
LADLE CLEANER OPENING NOTE RECEIVED PATIENT FROM AM NURSE; PATIENT IN BED, ALERT ORIENTED X 4, TAIWANESE SPEAKING WITH 2 RELATIVES AT BEDSIDE INTERPRETERS; STABLE ON ROOM AIR, TOLERATING WELL AND NO S/S OF ACUTE DISTRESS NOTED, BREATHING EVENLY AND UNLABORED; HOOKED ON SAW FEEDER CURRENTLY READING V PACING; WITH IV ACCESS ON RIGHT HAND, NOTED TO BE DISLODGED; REMOVED IV AT RIGHT ARM AND REINSERTED IV AT LEFT HAND G#20, INTACT AND PATENT AND FLUSHING WELL; ENCOURAGED VERBALIZATION OF NEEDS; SAFETY MEASURES IMPLEMENTED, BED IN LOW AND LOCKED POSITION, SIDE RAILS UP X 2, CALL LIGHT AND TABLE WITHIN REACH; WILL CONTINUE TO MONITOR THROUGHOUT SHIFT
[2022-06-03 20:00] VITALS: BP 118/84
[2022-06-03] MEDS: *INSULIN REGULAR(HUMULIN R)HUM 100 UNIT/ML VIAL SQ PRN (21:55)
--- NOTE | 2022-06-03 22:00 | NUR ---
RN HOME CARE NOTE ACCUCHECK WAS DONE AND PATIENT'S FBS WAS 166. 3 UNITS OF REGULAR INSULIN WAS ADMINISTERED PER INSULIN SLIDING SCALE; PATIENT TOLERATED WELL
[2022-06-04] MEDS: BLOOD SUGAR DIAGNOSTIC 1 EACH STRIP VI SCH ×4 (06:37→21:09)
[2022-06-04 06:38] LABS: BASOPHILS % (AUTO) 0.5 % (0.0-2.0); EOSINOPHILS % (AUTO) 2.6 % (0.0-6.0); HEMATOCRIT 27 % (33-45); HEMOGLOBIN 8.7 g/dL (11.5-14.8); LYMPHOCYTES # (AUTO) 0.8 K/uL (0.8-4.8); LYMPHOCYTES % (AUTO) 17.3 % (20.0-44.0); MEAN CORPUSCULAR HGB CONC 33 g/dl (31.0-36.0); MEAN CORPUSCULAR VOLUME 91 fL (82-100); MONOCYTES # (AUTO) 0.5 K/uL (0.1-1.30); MONOCYTES % (AUTO) 11.2 % (2.0-12.0); NEUTROPHILS # (AUTO) 3.1 K/uL (1.8-8.9); NEUTROPHILS % (AUTO) 68.4 % (43.0-81.0); PLATELET COUNT (AUTO) 151 K/uL (150-450); RED BLOOD CELL COUNT(AUTO) 2.95 MIL/uL (4.0-5.2); WHITE BLOOD COUNT (AUTO) 4.5 K/uL (4.3-11.0)
[2022-06-04 06:57] LABS: ALANINE AMINOTRANSFERASE 25 U/L (12-78); ALBUMIN 3.2 g/dL (3.4-5.0); ALKALINE PHOSPHATASE 84 U/L (46-116); ASPARTATE AMINOTRANSFERASE 23 U/L (15-37); BILIRUBIN,TOTAL 0.4 mg/dL (0.2-1.0); CALCIUM, SERUM 8.8 mg/dL (8.5-10.1); CARBON DIOXIDE 15 mmol/L (21-32); CHLORIDE 114 mmol/L (98-107); CREATININE 1.6 mg/dL (0.6-1.3); GLUCOSE 101 mg/dL (74-106); MAGNESIUM 2.3 mg/dL (1.8-2.4); PHOSPHORUS 4.7 mg/dL (2.5-4.9); POTASSIUM 4.7 mmol/L (3.5-5.1); SODIUM SERUM 141 mmol/L (136-145); TOTAL PROTEIN, SERUM 6.5 g/dL (6.4-8.2); UREA NITROGEN, BLOOD 71 mg/dL (7-18)
--- NOTE | 2022-06-04 06:59 | NUR ---
GRINDER SET UP OPERATOR UNIVERSAL CLOSING NOTE PATIENT IN BED, A/O X 4, KINYARWANDA SPEAKING, USES GOOGLE TRANSLATE TO COMMUNICATE EFFECTIVELY; STABLE ON ROOM AIR, TOLERATING WELL AND NO S/S OF ACUTE DISTRESS NOTED, BREATHING EVENLY AND UNLABORED; HOOKED ON HUSKER OPERATOR CURRENTLY READING V PACING; WITH IV ACCESS ON LEFT HAND G#20, INTACT AND PATENT AND FLUSHING WELL; ADMINISTERED MEDICATIONS PRESCRIBED; PATIENT'S NEEDS ATTENDED; MONITORED PATIENT ACCORDINGLY; SAFETY MEASURES IMPLEMENTED, BED IN LOW AND LOCKED POSITION, SIDE RAILS UP X 2, CALL LIGHT AND TABLE WITHIN REACH; WILL ENDORSE TO AM NURSE FOR RILEY.
--- NOTE | 2022-06-04 07:38 | NUR ---
MIRROR FRAMER OPENING NOTES RECEIVED PATIENT ON BED , AWAKE , A/OX4 , TUNISIAN SPEAKING , ROOM AIR TOLERATED WELL , NO SOB OR DISTRESS NOTED , N C/O OF PAIN AND DISCOMFORT , ON TELE MONITOR SR WITH V PACING , ACCESS ON THE LEFT HAND G#20 SL , SAFETY MEASURES PROVIDED , CALL LIGHT WITHIN REACH , SIDE RAILS UP X2 , BED IN LOWEST POSITION AND WILL CONTINUE TO MONITOR .
[2022-06-04 08:00] VITALS: BP 168/64
[2022-06-04] MEDS: FUROSEMIDE 40 MG/4 ML VIAL IV SCH ×3 (08:38→16:30)
[2022-06-04] MEDS: CARVEDILOL 12.5 MG TABLET PO SCH ×2 (08:40→16:32)
[2022-06-04] MEDS: BENAZEPRIL HCL 20 MG TABLET PO SCH (08:41)
[2022-06-04] MEDS: INSULIN LISPRO/ASPART 100 UNIT/ML CARTRIDGE SQ SCH ×3 (09:03→17:25)
[2022-06-04 09:09] LABS: CHOLESTEROL 155 mg/dL (<200); HDL CHOLESTEROL 50 mg/dL (40-60); LDL 98 mg/dL (0-99); TRIGLYCERIDES 79 mg/dL (30-150)
[2022-06-04 12:00] VITALS: BP 120/75
--- NOTE | 2022-06-04 12:00 | NUR ---
RN NOTES BLOOD SUGAR WAS CHECKED AND RESULT WAS 68 , ORANGE JUICE GIVEN AND NO HYPOGLYCEMIA NOTED
--- NOTE | 2022-06-04 12:45 | NUR ---
RN NOTES BLOOD SUGAR WAS CHECKED AGAIN AND RESULT WAS 68 AND GIVEN ORANGE JUICE AGAIN
[2022-06-04] MEDS: *INSULIN REGULAR(HUMULIN R)HUM 100 UNIT/ML VIAL SQ PRN ×2 (13:12→21:11)
[2022-06-04] MEDS: ENOXAPARIN SODIUM 30 MG/0.3 ML DISP.SYRIN SQ SCH (13:33)
--- NOTE | 2022-06-04 13:53 | NUR ---
RN NOTES BLOOD SUGAR WAS CHECKED AND RESULT WAS 75 . NO HYPOGLYCEMIA NOTED
[2022-06-04 16:00] VITALS: BP 155/44
[2022-06-04 17:13] LABS: BILIRUBIN,URINE NEGATIVE (NEGATIVE); COLOR,URINE YELLOW (YELLOW); LEUKOCYTE ESTERASE ,URINE NEGATIVE (NEGATIVE); NITRITE, URINE NEGATIVE (NEGATIVE); PROTEIN,URINE NEGATIVE (NEGATIVE); UGLUCOSE NEGATIVE (NEGATIVE); UROBILINOGEN,URINE 0.2 EU/dL (0.2)
[2022-06-04 17:25] LABS: BACTERIA,URINE None seen /HPF (None Seen); MUCUS,URINE Few /LPF (None Seen); SQUAMOUS EPITHELIAL CELL,UR 0-2 /HPF (None Seen); WBC,URINE 0-2 /HPF (0-3)
--- NOTE | 2022-06-04 18:55 | NUR ---
SIDING APPLICATOR CLOSING NOTES RECEIVED PATIENT ON BED , AWAKE , A/OX4 , CAMBODIAN SPEAKING , ROOM AIR TOLERATED WELL , NO SOB OR DISTRESS NOTED , N C/O OF PAIN AND DISCOMFORT , ON TELE MONITOR SR WITH V PACING , ACCESS ON THE LEFT HAND G#20 SL , ALL DUE MEDS GIVEN ORDERED , UA COLLECTED AND SENT OT LAB , SAFETY MEASURES PROVIDED , CALL LIGHT WITHIN REACH , SIDE RAILS UP X2 , BED IN LOWEST POSITION AND ENDORSED TO NEXT SHIFT .
--- NOTE | 2022-06-04 19:30 | NUR ---
CITY DRIVER OPENING NOTE PATIENT IN BED, A/O X 4, BELARUSIAN SPEAKING, USES GOOGLE TRANSLATE TO COMMUNICATE EFFECTIVELY; STABLE ON ROOM AIR, TOLERATING WELL AND NO S/S OF ACUTE DISTRESS NOTED, BREATHING EVENLY AND UNLABORED; HOOKED ON POCKET FLAP CREASING MACHINE OPERATOR CURRENTLY READING VPACING; WITH IV ACCESS ON LEFT HAND G#20, INTACT, PATENT AND FLUSHING WELL; SAFETY MEASURES IMPLEMENTED, BED IN LOW AND LOCKED POSITION, SIDE RAILS UP X 2, CALL LIGHT AND TABLE WITHIN REACH; WILL CONTINUE TO MONITOR THROUGHOUT SHIFT
[2022-06-04 20:00] VITALS: BP 126/55
[2022-06-05] VITALS: BP 109/46
[2022-06-05 04:00] VITALS: BP 114/79
[2022-06-05 06:22] LABS: BASOPHILS % (AUTO) 0.4 % (0.0-2.0); EOSINOPHILS % (AUTO) 6.7 % (0.0-6.0); HEMATOCRIT 28 % (33-45); HEMOGLOBIN 9.2 g/dL (11.5-14.8); LYMPHOCYTES # (AUTO) 0.9 K/uL (0.8-4.8); LYMPHOCYTES % (AUTO) 21.1 % (20.0-44.0); MEAN CORPUSCULAR HGB CONC 33 g/dl (31.0-36.0); MEAN CORPUSCULAR VOLUME 90 fL (82-100); MONOCYTES # (AUTO) 0.5 K/uL (0.1-1.30); MONOCYTES % (AUTO) 12.1 % (2.0-12.0); NEUTROPHILS # (AUTO) 2.5 K/uL (1.8-8.9); NEUTROPHILS % (AUTO) 59.7 % (43.0-81.0); PLATELET COUNT (AUTO) 160 K/uL (150-450); RED BLOOD CELL COUNT(AUTO) 3.12 MIL/uL (4.0-5.2); WHITE BLOOD COUNT (AUTO) 4.2 K/uL (4.3-11.0)
[2022-06-05 06:53] LABS: ALANINE AMINOTRANSFERASE 32 U/L (12-78); ALBUMIN 3.1 g/dL (3.4-5.0); ALKALINE PHOSPHATASE 86 U/L (46-116); ASPARTATE AMINOTRANSFERASE 18 U/L (15-37); BILIRUBIN,TOTAL 0.4 mg/dL (0.2-1.0); CALCIUM, SERUM 8.8 mg/dL (8.5-10.1); CARBON DIOXIDE 19 mmol/L (21-32); CHLORIDE 112 mmol/L (98-107); CREATININE 1.7 mg/dL (0.6-1.3); GLUCOSE 113 mg/dL (74-106); PHOSPHORUS 4.4 mg/dL (2.5-4.9); POTASSIUM 4.6 mmol/L (3.5-5.1); SODIUM SERUM 141 mmol/L (136-145); TOTAL PROTEIN, SERUM 6.5 g/dL (6.4-8.2); UREA NITROGEN, BLOOD 72 mg/dL (7-18)
[2022-06-05] MEDS: BLOOD SUGAR DIAGNOSTIC 1 EACH STRIP VI SCH ×4 (06:53→22:00)
[2022-06-05 07:00] VITALS: BP 126/43
--- NOTE | 2022-06-05 07:03 | NUR ---
POLICE COMMUNICATIONS DISPATCHER CLOSING NOTE PATIENT IN BED, A/O X 4, FRENCH SPEAKING, USES GOOGLE TRANSLATE TO COMMUNICATE EFFECTIVELY; STABLE ON ROOM AIR, TOLERATING WELL AND NO S/S OF ACUTE DISTRESS NOTED, BREATHING EVENLY AND UNLABORED; HOOKED ON DIRECTOR OF PATIENT SAFETY CURRENTLY READING V PACING; WITH IV ACCESS ON LEFT HAND G#20, INTACT, PATENT AND FLUSHING WELL WITH NS; ADMINISTERED MEDICATIONS PRESCRIBED; PATIENT'S NEEDS ATTENDED; MONITORED ACCORDINGLY; SAFETY MEASURES IMPLEMENTED, BED IN LOW AND LOCKED POSITION, SIDE RAILS UP X 2, CALL LIGHT AND TABLE WITHIN REACH; WILL ENDORSE TO AM NURSE FOR RILEY.
--- NOTE | 2022-06-05 07:30 | NUR ---
SUPPLY CHAIN LOGISTICS MANAGER OPENING NOTES RECEIVED PATIENT ON BED , AWAKE , A/OX4 , INDIAN SPEAKING , ROOM AIR TOLERATED WELL , NO SOB OR DISTRESS NOTED , NO C/O OF PAIN AND DISCOMFORT , ON TELE MONITOR SR WITH V PACING , ACCESS ON THE LEFT HAND G#20 SL , SAFETY MEASURES PROVIDED , CALL LIGHT WITHIN REACH , SIDE RAILS UP X2 , BED IN LOWEST POSITION AND WILL CONTINUE TO MONITOR .
[2022-06-05] MEDS: FUROSEMIDE 40 MG/4 ML VIAL IV SCH ×3 (08:45→17:49)
[2022-06-05] MEDS: BENAZEPRIL HCL 20 MG TABLET PO SCH (08:46)
[2022-06-05] MEDS: CARVEDILOL 12.5 MG TABLET PO SCH ×2 (08:46→17:51)
[2022-06-05] MEDS: INSULIN LISPRO/ASPART 100 UNIT/ML CARTRIDGE SQ SCH ×3 (08:52→17:00)
[2022-06-05] MEDS: INSULIN REGULAR, HUMAN 100 UNIT/ML 3 ML VIAL SQ PRN (12:34)
[2022-06-05] MEDS: ENOXAPARIN SODIUM 30 MG/0.3 ML DISP.SYRIN SQ SCH (13:41)
[2022-06-05 16:00] VITALS: BP 150/71
--- NOTE | 2022-06-05 16:35 | NUR ---
RN NOTES BS WAS CHECKED AND WITH RESULT OF 55 , PATIENT WITH NO S/S OF HYPOGLYCEMIA NOTED . PATIENT ALERT AND ORIENTED . 80Z OF ORANGE JUICE GIVEN . MONITORED FOR ANY CHANGES
[2022-06-05] MEDS: *INSULIN REGULAR(HUMULIN R)HUM 100 UNIT/ML VIAL SQ PRN ×2 (17:15→22:02)
--- NOTE | 2022-06-05 17:30 | NUR ---
RN NOTES PATIENT'S BLOOD SUGAR WAS CHECKED AGAIN AND WITH RESULT OF 145 . ABLE TO EAT DINNER Addendum: 06/05/22 at 1752 by KAILASH ARZATE RN CORRECTION WITH THE BLOOD SUGAR - 143 DISREGARD RESULT OF 145
--- NOTE | 2022-06-05 18:44 | NUR ---
CHAINSTITCH ELASTIC ATTACHER CLOSING NOTES PATIENT ON BED , AWAKE , A/OX4 , TURKS AND CAICOS ISLANDER SPEAKING , ROOM AIR TOLERATED WELL , NO SOB OR DISTRESS NOTED , NO C/O OF PAIN AND DISCOMFORT , DISCHARGE FROM TELE TO MS , ALL DUE MDES GIVEN ORDERED ,CONTINENT WITH BRP , ACCESS ON THE LEFT HAND G#20 SL , SAFETY MEASURES PROVIDED , CALL LIGHT WITHIN REACH , SIDE RAILS UP X2 , BED IN LOWEST POSITION AND ENDORSED TO NEXT SHIFT .
--- NOTE | 2022-06-05 19:19 | NUR ---
MS RN OPENING NOTES: RECEIVED PATIENT AWAKE IN BED, BED IN LOW POSITION, CALL LIGHTS WITHIN REACH, NO COMPLAIN OF PAIN AND DISCOMFORT AT THIS TIME, ON ROOM AIR SATURATING WELL, PATIENT IS A/O X 4 BELARUSIAN SPEAKING ABLE TO EXPRESS NEEDS, PATIENT IS AMBULATORY WITH SUPERVISION, IV LINE AT LEFT HAND #20SL, PATIENT KEPT CLEAN AND DRY ALL NEEDS MET WILL CONTINUE TO MONITOR.
[2022-06-05 20:00] VITALS: BP 138/33
[2022-06-06 06:33] LABS: BASOPHILS % (AUTO) 0.5 % (0.0-2.0); EOSINOPHILS % (AUTO) 7.3 % (0.0-6.0); HEMATOCRIT 28 % (33-45); LYMPHOCYTES % (AUTO) 27.3 % (20.0-44.0); MEAN CORPUSCULAR HGB CONC 33 g/dl (31.0-36.0); MEAN CORPUSCULAR VOLUME 89 fL (82-100); MONOCYTES # (AUTO) 0.4 K/uL (0.1-1.30); MONOCYTES % (AUTO) 11.1 % (2.0-12.0); NEUTROPHILS # (AUTO) 1.9 K/uL (1.8-8.9); NEUTROPHILS % (AUTO) 53.8 % (43.0-81.0); PLATELET COUNT (AUTO) 159 K/uL (150-450); RED BLOOD CELL COUNT(AUTO) 3.09 MIL/uL (4.0-5.2); WHITE BLOOD COUNT (AUTO) 3.6 K/uL (4.3-11.0)
[2022-06-06 06:49] LABS: ALANINE AMINOTRANSFERASE 21 U/L (12-78); ALBUMIN 3.1 g/dL (3.4-5.0); ALKALINE PHOSPHATASE 77 U/L (46-116); ASPARTATE AMINOTRANSFERASE 14 U/L (15-37); BILIRUBIN,TOTAL 0.3 mg/dL (0.2-1.0); CALCIUM, SERUM 8.7 mg/dL (8.5-10.1); CARBON DIOXIDE 22 mmol/L (21-32); CHLORIDE 110 mmol/L (98-107); CREATININE 1.6 mg/dL (0.6-1.3); GLUCOSE 176 mg/dL (74-106); MAGNESIUM 1.9 mg/dL (1.8-2.4); PHOSPHORUS 4.2 mg/dL (2.5-4.9); POTASSIUM 4.6 mmol/L (3.5-5.1); SODIUM SERUM 142 mmol/L (136-145); TOTAL PROTEIN, SERUM 6.3 g/dL (6.4-8.2); UREA NITROGEN, BLOOD 70 mg/dL (7-18)
--- NOTE | 2022-06-06 06:50 | NUR ---
MS RN CLOSING NOTES; PATIENT AWAKE IN BED, BED IN LOW POSITION CALL LIGHTS WITHIN REACH, NO COMPLAIN OF PAIN AND DISCOMFORT AT THIS TIME, ON ROOM AIR SATURATING WELL, PATIENT IS A/O X4 AMBULATORY ABLE TO MAKE NEEDS KNOWN, KEPT CLEAN AND DRY ALL NEEDS MET ENDORSE TO INCOMING SHIFT.
[2022-06-06] MEDS: BLOOD SUGAR DIAGNOSTIC 1 EACH STRIP VI SCH ×2 (06:56→11:50)
[2022-06-06] MEDS: INSULIN REGULAR, HUMAN 100 UNIT/ML 3 ML VIAL SQ PRN ×2 (06:56→11:49)
--- NOTE | 2022-06-06 08:18 | NUR ---
RN OPENING NOTE- IN BED, AWAKE, CHEST CLEAR, NO RHONCHI, NO RALES, NO WHEEZING, ON ROOM AIR SATURATING WELL, PATIENT IS A/O X4 AMBULATORY ABLE TO MAKE NEEDS KNOWN, KEPT CLEAN AND DRY ALL NEEDS MET. MONITOR /. ASSIST
[2022-06-06 08:33] VITALS: BP 158/72
[2022-06-06] MEDS: CARVEDILOL 12.5 MG TABLET PO SCH (08:37)
[2022-06-06 08:38] VITALS: BP 158/72
[2022-06-06] MEDS: BENAZEPRIL HCL 20 MG TABLET PO SCH (08:38)
[2022-06-06] MEDS: FUROSEMIDE 40 MG/4 ML VIAL IV SCH ×2 (08:43→13:04)
[2022-06-06] MEDS: INSULIN LISPRO/ASPART 100 UNIT/ML CARTRIDGE SQ SCH ×2 (09:32→13:04)
[2022-06-06] MEDS ORDERED: FUROSEMIDE 40 MG/4 ML VIAL IV SCH (10:00)
[2022-06-06] MEDS: ENOXAPARIN SODIUM 30 MG/0.3 ML DISP.SYRIN SQ SCH (14:33)
--- NOTE | 2022-06-06 15:40 | NUR ---
RN NOTE- DISCHARGE- PT DC AT THIS TIME TO FAMILY. SON AT BEDSIDE. DC INSTRUCTIONS REVIEWED AND UNDERSTOOD. MD ORDERS GIVEN. IV REMOVED. ID [id number] REMOVED. NO SKIN ISSUES, ESCORTED OFF UNIT BY MINING DETAIL DRAFTSPERSON
== END 2022-06-06 15:20 | disposition home or self-care (01) | DRG 291 ==
LOC: ER 10:44 → TELE 14:48 → MED 06-05 09:23
PROVIDERS: ADMIT Internal Medicine; ATTEND Internal Medicine
DX: I13.0 Hypertensive heart and chronic kidney disease with heart failure and stage 1 through stage 4 chronic kidney disease, or unspecified chronic kidney disease (principal); I50.33 Acute on chronic diastolic (congestive) heart failure; N17.0 Acute kidney failure with tubular necrosis; N13.30 Unspecified hydronephrosis; Z20.822 Contact with and (suspected) exposure to COVID-19; Z95.0 Presence of cardiac pacemaker; E11.22 Type 2 diabetes mellitus with diabetic chronic kidney disease; E11.42 Type 2 diabetes mellitus with diabetic polyneuropathy; Z85.3 Personal history of malignant neoplasm of breast; Z90.11 Acquired absence of right breast and nipple; Z79.4 Long term (current) use of insulin; Z79.899 Other long term (current) drug therapy; D63.8 Anemia in other chronic diseases classified elsewhere; D69.6 Thrombocytopenia, unspecified; I25.10 Atherosclerotic heart disease of native coronary artery without angina pectoris; I27.20 Pulmonary hypertension, unspecified; I34.0 Nonrheumatic mitral (valve) insufficiency; E88.09 Other disorders of plasma-protein metabolism, not elsewhere classified; I70.0 Atherosclerosis of aorta; N18.9 Chronic kidney disease, unspecified; M81.0 Age-related osteoporosis without current pathological fracture; I48.91 Unspecified atrial fibrillation; Z82.49 Family history of ischemic heart disease and other diseases of the circulatory system; Z83.3 Family history of diabetes mellitus
CPT/HCPCS: 36415; 71045-TC; 76770-TC; 80048-TC; 80053-TC; 80061-TC; 80076-TC; 81001; 82570-TC; 82962-TC; 83735-TC; 83880; 84100-TC; 84300-TC; 84484-TC; 85025-TC; 87081-TC; 93307-TC; 93970-TC; C9803; G0378; J1650; J1815; J1940

== ENCOUNTER 2022-06-20 11:48 | Inpatient (IN) | payer MEDICARE, OTHER ==
[~2022-06-20] VITALS: Ht 157.5 cm; Wt 69.9 kg
[~2022-06-20 11:48] MED LIST changes: +BENA40TA8 PO; -FURO-144 PO; +FURO80TA3 PO; -GABA-532 PO; +INSU100V42 SQ; +INSU10VI3 SQ; -INSU3INS6 SQ; -ISOS30TA86 PO; +POTA8TAB3 PO; +SPIR50TA5 PO
--- NOTE | 2022-06-20 11:54 | NUR ---
[id number] FROM HOME FOR SUBSTERNAL PRESSURE LIKE CP X 1 HOUR 2 SPRAYS OF NITRO AND 1 325 MG ASPIRIN GIVEN BY EMS ON SCENE. PLACED IN BED, AAOX4, BREATHING EVEN AND UNLABORED SATURATING AT 98%RA. AT BEDSIDE FOR EVAL.
[2022-06-20] MEDS ORDERED: FUROSEMIDE 40 MG/4 ML VIAL IV ONE (12:00)
[2022-06-20] MEDS ORDERED: NITROGLYCERIN PACKET 1 GM PACKET TD ONE (12:00)
[2022-06-20] MEDS ORDERED: FUROSEMIDE 40 MG/4 ML VIAL ONE (12:05)
[2022-06-20] MEDS ORDERED: NITROGLYCERIN PACKET 1 GM PACKET ONE (12:06)
--- NOTE | 2022-06-20 12:15 | NUR ---
PATIENT COMPLAINS OF R LEG SHARP PAIN MD MADE AWARE.
--- NOTE | 2022-06-20 12:17 | NUR ---
OFFICE SERVICES COORDINATOR AT BEDSIDE
[2022-06-20] MEDS ORDERED: MORPHINE SULFATE INJ 2 MG/ML DISP.SYRIN ONE (12:45)
[2022-06-20 12:54] LABS: BASOPHILS % (AUTO) 0.4 % (0.0-2.0); EOSINOPHILS % (AUTO) 0.3 % (0.0-6.0); HEMATOCRIT 34 % (33-45); HEMOGLOBIN 11.1 g/dL (11.5-14.8); LYMPHOCYTES # (AUTO) 0.9 K/uL (0.8-4.8); LYMPHOCYTES % (AUTO) 12.9 % (20.0-44.0); MEAN CORPUSCULAR HGB CONC 33 g/dl (31.0-36.0); MEAN CORPUSCULAR VOLUME 89 fL (82-100); MONOCYTES # (AUTO) 0.5 K/uL (0.1-1.30); MONOCYTES % (AUTO) 7.3 % (2.0-12.0); NEUTROPHILS # (AUTO) 5.7 K/uL (1.8-8.9); NEUTROPHILS % (AUTO) 79.1 % (43.0-81.0); PLATELET COUNT (AUTO) 230 K/uL (150-450); RED BLOOD CELL COUNT(AUTO) 3.78 MIL/uL (4.0-5.2); WHITE BLOOD COUNT (AUTO) 7.2 K/uL (4.3-11.0)
[2022-06-20] MEDS ORDERED: MORPHINE SULFATE INJ 2 MG/ML DISP.SYRIN IV ONE (13:00)
[2022-06-20 13:12] LABS: ALANINE AMINOTRANSFERASE 18 U/L (12-78); ALKALINE PHOSPHATASE 78 U/L (46-116); ASPARTATE AMINOTRANSFERASE 19 U/L (15-37); BILIRUBIN,DIRECT 0.2 mg/dL (0.0-0.2); BILIRUBIN,TOTAL 0.5 mg/dL (0.2-1.0); CALCIUM, SERUM 9.8 mg/dL (8.5-10.1); CARBON DIOXIDE 21 mmol/L (21-32); CHLORIDE 106 mmol/L (98-107); CREATININE 1.9 mg/dL (0.6-1.3); GLUCOSE 239 mg/dL (74-106); POTASSIUM 3.6 mmol/L (3.5-5.1); SODIUM SERUM 144 mmol/L (136-145); TOTAL PROTEIN, SERUM 7.9 g/dL (6.4-8.2); UREA NITROGEN, BLOOD 60 mg/dL (7-18)
[2022-06-20] MEDS ORDERED: hydrALAZINE HCL IV 20 MG VIAL IV PRN (13:30)
[2022-06-20] MEDS ORDERED: ONDANSETRON HCL/PF 4 MG/2 ML VIAL IVP PRN (13:30)
--- NOTE | 2022-06-20 15:38 | NUR ---
REPORT GIVEN TO JERALD URBANO FOR RILEY
--- NOTE | 2022-06-20 16:45 | NUR ---
PATIENT TRANSFERED AND ADMITTED PER ACLS PROTOCOL
[2022-06-20] MEDS ORDERED: FUROSEMIDE 80 MG TABLET PO SCH (17:00)
[2022-06-20] MEDS: ENOXAPARIN SODIUM 30 MG/0.3 ML DISP.SYRIN SQ SCH (17:59)
[2022-06-20] MEDS: CARVEDILOL 12.5 MG TABLET PO SCH (18:00)
[2022-06-20] MEDS: SPIRONOLACTONE 25 MG TABLET PO SCH (18:00)
[2022-06-20] MEDS: FUROSEMIDE 40 MG TABLET PO SCH (18:09)
[2022-06-20] MEDS ORDERED: DEXTROSE 50%-WATER 50 ML DISP.SYRIN IV PRN (19:00)
--- NOTE | 2022-06-20 19:30 | NUR ---
RN NOTE Pt received in bed, alert, awake and verbally responsive. Denies pain or discomfort at this time. Afebrile. Pt on room air, well tolerated, no SOB, no acute resp distress noted. PIV access on LAC #20, clean dry, intact, flushes well. HOB elevated for comfort. Safety precaution implemented. Family at bedside. Will cont POC.
[2022-06-20 20:00] VITALS: BP 155/63
[2022-06-20] MEDS: BLOOD SUGAR DIAGNOSTIC 1 EACH STRIP IN SCH (20:40)
[2022-06-20] MEDS: INSULIN REGULAR, HUMAN 100 UNIT/ML 3 ML VIAL SQ PRN (20:42)
[2022-06-21] VITALS: BP 152/73
[2022-06-21] MEDS: INSULIN REGULAR, HUMAN 100 UNIT/ML 3 ML VIAL SQ PRN ×3 (00:05→22:53)
[2022-06-21] MEDS: BLOOD SUGAR DIAGNOSTIC 1 EACH STRIP IN SCH ×5 (00:06→22:54)
[2022-06-21 04:00] VITALS: BP 152/58
[2022-06-21] MEDS: POTASSIUM CHLORIDE 10 MEQ TABLET.SA PO SCH (05:26)
[2022-06-21 07:01] LABS: BASOPHILS % (AUTO) 0.4 % (0.0-2.0); EOSINOPHILS % (AUTO) 1.4 % (0.0-6.0); HEMATOCRIT 32 % (33-45); HEMOGLOBIN 10.6 g/dL (11.5-14.8); LYMPHOCYTES # (AUTO) 0.8 K/uL (0.8-4.8); LYMPHOCYTES % (AUTO) 12.1 % (20.0-44.0); MEAN CORPUSCULAR HGB CONC 33 g/dl (31.0-36.0); MEAN CORPUSCULAR VOLUME 89 fL (82-100); MONOCYTES # (AUTO) 0.5 K/uL (0.1-1.30); NEUTROPHILS # (AUTO) 5.5 K/uL (1.8-8.9); NEUTROPHILS % (AUTO) 79.1 % (43.0-81.0); PLATELET COUNT (AUTO) 220 K/uL (150-450); RED BLOOD CELL COUNT(AUTO) 3.58 MIL/uL (4.0-5.2)
--- NOTE | 2022-06-21 07:15 | NUR ---
RN NOTE Pt remains in stable condition. No significant changes noted. Remains on RA, well naveen. O2 sat- 96%. Purewick in placed draining clear yellow urine. Kept pt clean, dry and comfortable at all times. Will endorse to AM shift for RILEY.
[2022-06-21 08:09] LABS: CALCIUM, SERUM 9.6 mg/dL (8.5-10.1); CARBON DIOXIDE 20 mmol/L (21-32); CHLORIDE 108 mmol/L (98-107); CREATININE 1.8 mg/dL (0.6-1.3); GLUCOSE 195 mg/dL (74-106); POTASSIUM 3.4 mmol/L (3.5-5.1); SODIUM SERUM 146 mmol/L (136-145); UREA NITROGEN, BLOOD 63 mg/dL (7-18)
[2022-06-21 08:15] LABS: ALANINE AMINOTRANSFERASE 15 U/L (12-78); ALBUMIN 3.5 g/dL (3.4-5.0); ALKALINE PHOSPHATASE 65 U/L (46-116); ASPARTATE AMINOTRANSFERASE 18 U/L (15-37); BILIRUBIN,TOTAL 0.4 mg/dL (0.2-1.0); MAGNESIUM 2.2 mg/dL (1.8-2.4); PHOSPHORUS 4.8 mg/dL (2.5-4.9); TOTAL PROTEIN, SERUM 7.2 g/dL (6.4-8.2)
[2022-06-21] MEDS: FUROSEMIDE 40 MG TABLET PO SCH ×2 (09:07→17:00)
[2022-06-21] MEDS: BENAZEPRIL HCL 20 MG TABLET PO SCH (09:07)
[2022-06-21] MEDS: SPIRONOLACTONE 25 MG TABLET PO SCH ×3 (09:07→17:00)
[2022-06-21] MEDS: CARVEDILOL 12.5 MG TABLET PO SCH ×2 (09:07→17:00)
[2022-06-21] MEDS: MORPHINE SULFATE INJ 2 MG/ML DISP.SYRIN IV PRN (09:30)
[2022-06-21 13:11] VITALS: BP 160/59
[2022-06-21] MEDS ORDERED: BUPIVACAINE 0.5 % PF 150 MG/30 ML VIAL ONE (13:17)
[2022-06-21] MEDS ORDERED: POLYMYXIN B SULFATE 500,000 UNITS ONE (13:17)
[2022-06-21] MEDS ORDERED: FENTANYL PF 250MCG/5ML AMPUL ONE (14:52)
[2022-06-21] MEDS ORDERED: HYDROMORPHONE INJ 2 MG/ML DISP.SYRIN ONE (14:52)
[2022-06-21] MEDS ORDERED: FAMOTIDINE/PF INJ 20 MG/2 ML VIAL IV ONE (14:53)
[2022-06-21] MEDS ORDERED: ROCURONIUM BROMIDE 50 MG/5 ML ONE (14:53)
--- NOTE | 2022-06-21 15:00 | NUR ---
PATIENT IS GOING TO HAVE A SURGERY ON RIGHT HIP, SO HEPARIN HELD
[2022-06-21] MEDS: ENOXAPARIN SODIUM 30 MG/0.3 ML DISP.SYRIN SQ SCH (15:30)
--- NOTE | 2022-06-21 17:10 | NUR ---
PATIENT TAKEN TO OPERATION ROOM AT [address] [facility] HIP SURGERY, SO 1700 O'CLOCK MEDICATION HELD.
[2022-06-21] MEDS ORDERED: TRANEXAMIC ACID 1,000 MG/10 ML VIAL ONE (17:18)
[2022-06-21] MEDS ORDERED: ANESTHESIA TRAY IN PYXIS 1 EA TRAY MC ONE (19:08)
--- NOTE | 2022-06-21 19:35 | NUR ---
RN NOTE Pt. arrived from surgery, s/p R hemiarthroplasty, pt accompanied by 2 OR personnels. Pt on 2L O2 via NC, O2 sat- 98%, no SOB, no acute resp distress. Attached to tele monitor reading SR [id number]. Pt is alert, awake and verbally responsive, denies pain or discomfort at this time. R hip surgical dressing in placed, dry, noted with slight dark red blood, no active oozing noted. Abductor pillow in placed. Call light within reach. Will continue POC. Family at bedside.
[2022-06-21 20:00] VITALS: BP 119/48
[2022-06-22] VITALS: BP 128/49
[2022-06-22] MEDS: CEFAZOLIN 2 GM in IV D5W 100 ML IV SCH ×3 (01:00→17:57)
[2022-06-22 04:00] VITALS: BP 141/74
[2022-06-22] MEDS: POTASSIUM CHLORIDE 10 MEQ TABLET.SA PO SCH (06:04)
--- NOTE | 2022-06-22 06:30 | NUR ---
RN NOTE Pt remains in stable condition, no signifcant changes noted. VSS. Remains on room air, respirations even and unlabored. Pt currently asleep, easily arousable. No c/o pain noted throughout the shift. S/P R hip hemiarthroplasty, dressing in placed, clean, dry, and intact, no s/sx of active bleeding. Pt afebrile. All due medications given as ordered. All needs attended. Call light within easy reach. Will endorse to AM shift nurse for RILEY.
[2022-06-22 06:37] LABS: BASOPHILS % (AUTO) 0.1 % (0.0-2.0); HEMATOCRIT 30 % (33-45); HEMOGLOBIN 9.9 g/dL (11.5-14.8); LYMPHOCYTES # (AUTO) 0.4 K/uL (0.8-4.8); MEAN CORPUSCULAR HGB CONC 33 g/dl (31.0-36.0); MEAN CORPUSCULAR VOLUME 93 fL (82-100); MONOCYTES # (AUTO) 0.7 K/uL (0.1-1.30); MONOCYTES % (AUTO) 7.3 % (2.0-12.0); NEUTROPHILS # (AUTO) 8.6 K/uL (1.8-8.9); NEUTROPHILS % (AUTO) 88.6 % (43.0-81.0); PLATELET COUNT (AUTO) 218 K/uL (150-450); RED BLOOD CELL COUNT(AUTO) 3.28 MIL/uL (4.0-5.2); WHITE BLOOD COUNT (AUTO) 9.7 K/uL (4.3-11.0)
[2022-06-22 06:54] LABS: CARBON DIOXIDE 21 mmol/L (21-32); CHLORIDE 105 mmol/L (98-107); CREATININE 2.4 mg/dL (0.6-1.3); GLUCOSE 322 mg/dL (74-106); SODIUM SERUM 142 mmol/L (136-145); UREA NITROGEN, BLOOD 73 mg/dL (7-18)
--- NOTE | 2022-06-22 07:30 | NUR ---
CHILI POWDER MIXER OPENING NOTES Received patient in bed awake, alert and verbally responsive, armenia speaking, Remains on room air, respirations even and unlabored. No c/o of pain at this moment. S/P R hip hemiarthroplasty, dressing in placed, clean, dry, and intact, no s/sx of active bleeding at this moment. on tele monitor sr Pt afebrile. left ac piv noted patent and intact, flushes well. Call light within easy reach. safety measures in placed. plan of care continue.
[2022-06-22] MEDS: BLOOD SUGAR DIAGNOSTIC 1 EACH STRIP IN SCH ×4 (07:38→22:11)
[2022-06-22 08:00] VITALS: BP 147/60
[2022-06-22] MEDS: FUROSEMIDE 40 MG TABLET PO SCH ×2 (08:11→16:12)
[2022-06-22] MEDS: SPIRONOLACTONE 25 MG TABLET PO SCH ×3 (08:11→16:13)
[2022-06-22] MEDS: BENAZEPRIL HCL 20 MG TABLET PO SCH (08:12)
[2022-06-22] MEDS: CARVEDILOL 12.5 MG TABLET PO SCH ×2 (08:12→16:13)
[2022-06-22] MEDS: ENOXAPARIN SODIUM 30 MG/0.3 ML DISP.SYRIN SQ SCH (08:14)
[2022-06-22] MEDS: INSULIN REGULAR, HUMAN 100 UNIT/ML 3 ML VIAL SQ PRN ×4 (08:16→22:17)
--- NOTE | 2022-06-22 09:42 | NUR ---
NOTED RIGHT HIP SURGICAL SITE NOTED DRESSING SATURATED WITH BLOOD, INFORMED ORTHO DOCTOR ESTIVEN, INFORMED THAT PATIENT LOVENOX WAS GIVEN. WITH ORDER THAT CAN CHANGED DRESSING AND THEN CONTINUE TO CHANGE NEEDED. HOLD THE LOVENOX UNTIL OOZING STOPS AND DRESSING STAYS RELATIVELY CLEAN AND DRY. AND PT CAN SEE THE PATIENT, NOTED AND CARRIED OUT.
[2022-06-22] MEDS: MORPHINE SULFATE INJ 2 MG/ML DISP.SYRIN IV PRN ×2 (11:47→22:15)
[2022-06-22 12:00] VITALS: BP 128/55
--- NOTE | 2022-06-22 18:56 | NUR ---
NOTED PATIENT NO URINE OUTPUT ON PUREWICK, DIAPER IS DRY, NOTED BLADDER DISTENDED, BLADDER SCAN DONE NOTED 521ML IN THE BLADDER SCAN, INFORMED RACHEL BRUNER SENIOR RESERVOIR ENGINEER WITH ORDER TO INSERT FERRER CATH, NOTED AND CARRIED OUT, INSERTED FERRER FR 16 X10ML BALLOON NOTED, 700ML YELLOW COLORED URINE OUTPUT, CIRCUS LABORER NURSE AWARE.
--- NOTE | 2022-06-22 19:00 | NUR ---
RN OPENING NOTE RECEIVED PT AWAKE IN BED WITH FAMILY @ BEDSIDE. PT IS A/O X 3, LITHUANIAN SPEAKING. PT IS RA, TOLERATING WELL, BREATHING EVEN AND UNLABORED @ THIS TIME. PT IV PRESENT ON L RIGHT UPPER ARM MIDLINE SALINE LOCK, PATENT, INTACT AND FLUSHES WELL W/ NO S&SX OF INFILTRATION @ SITE NOTED. PT FERRER CATHETER IS IN PLACE DRAINING YELLOW COLORED URINE. SAFETY MEASURES IS IN PLACE. BED IN LOWEST & LOCKED POSITION. SIDE RAILS UP X 2. BEDSIDE TABLE & CALL LIGHT IS EASY REACH. BED ALARM IS ON. WILL CONTINUE TO MONITOR THE PT ACCORDINGLY.
--- NOTE | 2022-06-22 19:58 | NUR ---
RESIDENTIAL GLAZIER CLOSING NOTES patient in bed awake, alert and verbally responsive, armenia speaking, FAMILY AT THE BEDSIDE, Remains on room air, respirations even and unlabored. No c/o of pain at this moment. hip abduction pillow in placed. S/P R hip hemiarthroplasty, dressing noted saturated with blood, dressing changed.right upper arm midline noted patent and intact flushes well. left ac piv noted patent and intact, flushes well. Call light within easy reach. safety measures in placed. endorsed to night nurse for teddy.
[2022-06-22 20:00] VITALS: BP 109/46
[2022-06-23 04:00] VITALS: BP 112/49
[2022-06-23] MEDS: POTASSIUM CHLORIDE 10 MEQ TABLET.SA PO SCH (05:07)
--- NOTE | 2022-06-23 06:42 | NUR ---
RN CLOSING NOTE PT IS DOZING INTERMITTENTLY & RESTING COMFORTABLY IN BED. A/O X 3, RESPONSIVE AND FOLLOWS VERBAL COMMAND. PT IS IN RA W/ NO S & SX OF RESPIRATORY DISTRESS @ THIS TIME. PT IV PRESENT ON GLORIA MIDLINE SALINE LOCK, PATENT, INTACT AND FLUSHES WELL W/ NO S & SX OF INFILTRATION. PT FERRER CATHETER IS PLACE DRAINING YELLOW COLORED URINE W/ OUTPUT OF 550CC. PT KEPT CLEAN, DRY AND COMFORTABLE. ADMINISTERED MEDICATION ACCORDINGLY PER MD'S ORDER. SAFETY MEASURES IS IN PLACE. BED IN LOWEST AND LOCKED POSITION. SIDE RAILS UP X 2. BEDSIDE TABLE AND CALL LIGHT IS EASY REACH. BED ALARM IS ON. WILL ENDORSE PT TO THE NEXT SHIFT FOR RILEY.
--- NOTE | 2022-06-23 07:15 | NUR ---
RN NOTE RECEIVED PATIENT IN BED RESTING ALERT ORIENTEDX3 VERBALLY RESPONSIVE ON ROOM AIR O2:100% IV ACCESS ON LAC AND RIGHT UPPER ARM MIDLINE INTACT PATENT,FERRER CATH IN PLACE URINE DRAINING YELLOW CLEAR BY GRAVITY,SAFETY MEASURE IMPLEMENT BED IN LOW POSITION AND LOCKED,HEAD OF THE BED ELEVATED,CALL LIGHT WITHIN REACH CONTINUE TO MONITOR.
[2022-06-23 07:22] LABS: BASOPHILS % (AUTO) 0.1 % (0.0-2.0); EOSINOPHILS % (AUTO) 0.2 % (0.0-6.0); HEMATOCRIT 26 % (33-45); HEMOGLOBIN 8.7 g/dL (11.5-14.8); LYMPHOCYTES % (AUTO) 10.6 % (20.0-44.0); MEAN CORPUSCULAR HGB CONC 33 g/dl (31.0-36.0); MEAN CORPUSCULAR VOLUME 90 fL (82-100); MONOCYTES # (AUTO) 0.8 K/uL (0.1-1.30); MONOCYTES % (AUTO) 8.5 % (2.0-12.0); NEUTROPHILS # (AUTO) 7.7 K/uL (1.8-8.9); NEUTROPHILS % (AUTO) 80.6 % (43.0-81.0); PLATELET COUNT (AUTO) 191 K/uL (150-450); RED BLOOD CELL COUNT(AUTO) 2.92 MIL/uL (4.0-5.2); WHITE BLOOD COUNT (AUTO) 9.5 K/uL (4.3-11.0)
[2022-06-23] MEDS: BLOOD SUGAR DIAGNOSTIC 1 EACH STRIP IN SCH ×4 (07:22→21:49)
[2022-06-23 07:57] LABS: CARBON DIOXIDE 20 mmol/L (21-32); CHLORIDE 101 mmol/L (98-107); CREATININE 3.8 mg/dL (0.6-1.3); GLUCOSE 293 mg/dL (74-106); POTASSIUM 4.1 mmol/L (3.5-5.1); SODIUM SERUM 137 mmol/L (136-145)
[2022-06-23 07:58] LABS: UREA NITROGEN, BLOOD 89 mg/dL (7-18)
[2022-06-23] MEDS: CARVEDILOL 12.5 MG TABLET PO SCH ×2 (08:17→16:44)
[2022-06-23] MEDS: BENAZEPRIL HCL 20 MG TABLET PO SCH (08:18)
[2022-06-23] MEDS: SPIRONOLACTONE 25 MG TABLET PO SCH ×3 (08:27→17:00)
[2022-06-23] MEDS: FUROSEMIDE 40 MG TABLET PO SCH (08:27)
[2022-06-23] MEDS: INSULIN REGULAR, HUMAN 100 UNIT/ML 3 ML VIAL SQ PRN ×4 (08:29→21:52)
[2022-06-23] MEDS: ENOXAPARIN SODIUM 30 MG/0.3 ML DISP.SYRIN SQ SCH (08:34)
--- NOTE | 2022-06-23 08:56 | NUR ---
RN NOTE HOLD BP MEDS BP 101/50 HR 60 ALSO ALDACTONE,AND LOVENOX RIGHT HIPS SURGERY SITE,CONTINUE TO MONITOR.
[2022-06-23] MEDS: MORPHINE SULFATE INJ 2 MG/ML DISP.SYRIN IV PRN (10:44)
[2022-06-23 12:00] VITALS: BP 101/50
--- NOTE | 2022-06-23 18:45 | NUR ---
RN NOTE PATIENT REMAINS ALERT ORIENTED X3 VERBALLY RESPONSIVE NO SOB NOT ACUTE DISTRESS NOTED,FERRER CATH IN PLACE IV ACCESS ON GLORIA MIDLINE INTACT PATIENT KEPT CLEAN AND DRY ALL THE TIME,FERRER CATH IN PLACE,TURN AND REPOSITION EVERY 2 HOURS,KEPT HEAD OF THE BED ELEVATED ALL THE TIME,WILL ENDORSE NEXT COMING SHIFT FOR CONTINUATION OF CARE
--- NOTE | 2022-06-23 19:10 | NUR ---
PRODUCTION LINE MANAGER opening notes Received pt resting in bed, eyes closed, breathing even and unlabored, o2 via NC, GLORIA midline D/C/I, LAC 20 GA, D/C/I, snell cath intact, draining clear yellow urine, 0 s/s of infection, R hip surgical wound dressing intact, NAD noted at this time
[2022-06-23 20:00] VITALS: BP 131/35
[2022-06-24 04:00] VITALS: BP 135/30
[2022-06-24] MEDS: POTASSIUM CHLORIDE 10 MEQ TABLET.SA PO SCH (05:53)
--- NOTE | 2022-06-24 05:57 | NUR ---
RECOIL SPRING WINDER NOTE lovenox held for bleeding on surgical incision wound
--- NOTE | 2022-06-24 06:43 | NUR ---
COMMERCIAL BAKER HELPER CLOSING NOTE PT RESTING IN BED, ASLEEP, AFEBRILE, BREATHING EVEN AND UNLABORED, ALL DUE MEDS GIVEN PER MD ORDERS, TOLERATED WELL, ALL BASIC NEEDS MET AND ANTICIPATED, WILL CONTINUE TO MONITOR
[2022-06-24 07:32] LABS: BASOPHILS % (AUTO) 0.1 % (0.0-2.0); EOSINOPHILS % (AUTO) 0.7 % (0.0-6.0); HEMATOCRIT 24 % (33-45); HEMOGLOBIN 7.9 g/dL (11.5-14.8); LYMPHOCYTES # (AUTO) 0.9 K/uL (0.8-4.8); LYMPHOCYTES % (AUTO) 9.6 % (20.0-44.0); MEAN CORPUSCULAR HGB CONC 33 g/dl (31.0-36.0); MEAN CORPUSCULAR VOLUME 89 fL (82-100); MONOCYTES # (AUTO) 0.9 K/uL (0.1-1.30); MONOCYTES % (AUTO) 8.8 % (2.0-12.0); NEUTROPHILS % (AUTO) 80.8 % (43.0-81.0); PLATELET COUNT (AUTO) 197 K/uL (150-450); RED BLOOD CELL COUNT(AUTO) 2.68 MIL/uL (4.0-5.2); WHITE BLOOD COUNT (AUTO) 9.9 K/uL (4.3-11.0)
[2022-06-24] MEDS: BLOOD SUGAR DIAGNOSTIC 1 EACH STRIP IN SCH ×4 (07:46→22:05)
[2022-06-24] MEDS: IV NS 0.9% 1,000 ML IV PRN (07:51)
[2022-06-24 07:55] LABS: ALANINE AMINOTRANSFERASE 11 U/L (12-78); ALBUMIN 2.5 g/dL (3.4-5.0); ALKALINE PHOSPHATASE 60 U/L (46-116); ASPARTATE AMINOTRANSFERASE 19 U/L (15-37); BILIRUBIN,TOTAL 0.3 mg/dL (0.2-1.0); CALCIUM, SERUM 8.8 mg/dL (8.5-10.1); CARBON DIOXIDE 20 mmol/L (21-32); CHLORIDE 99 mmol/L (98-107); CREATININE 4.4 mg/dL (0.6-1.3); GLUCOSE 308 mg/dL (74-106); MAGNESIUM 2.1 mg/dL (1.8-2.4); PHOSPHORUS 6.2 mg/dL (2.5-4.9); POTASSIUM 4.3 mmol/L (3.5-5.1); SODIUM SERUM 133 mmol/L (136-145); TOTAL PROTEIN, SERUM 6.1 g/dL (6.4-8.2)
[2022-06-24 08:00] VITALS: BP 121/30
[2022-06-24 08:03] LABS: UREA NITROGEN, BLOOD 101 mg/dL (7-18)
[2022-06-24] MEDS: INSULIN REGULAR, HUMAN 100 UNIT/ML 3 ML VIAL SQ PRN ×4 (08:09→22:24)
[2022-06-24] MEDS: ENOXAPARIN SODIUM 30 MG/0.3 ML DISP.SYRIN SQ SCH (09:00)
[2022-06-24] MEDS: CARVEDILOL 12.5 MG TABLET PO SCH ×2 (09:00→17:00)
[2022-06-24] MEDS: SPIRONOLACTONE 25 MG TABLET PO SCH ×3 (09:09→17:00)
--- NOTE | 2022-06-24 09:30 | NUR ---
RN NOTE HELD LOVENOX FOR SURGICAL SITE BLEEDING AND COREG LOW BP. NOTIFIED DR EASON, CONTINUE TO MONITOR.
--- NOTE | 2022-06-24 12:00 | NUR ---
RN NOTE NOTIFED MONICA BUSBY ABOUT BLEEDING FROM THE SURGICAL SITE. MONICA SAID WILL COME TO SEE THE PT.
--- NOTE | 2022-06-24 13:00 | NUR ---
NURSING NOTE GEORGE BUSBY ORTHOPEDIC PA CAME AND PUT STERI-STRIPS AND COVERED WITH ELASTIC BANDAGE. RN TO CONTINUE MONITORING BLEEDING. [facility] PABLO'ED
[2022-06-24 16:00] VITALS: BP 121/30
[2022-06-24] MEDS: GLUCERNA SHAKE 237 ML CAN PO SCH (17:13)
--- NOTE | 2022-06-24 17:40 | NUR ---
RN NOTE BLOOD SUGAR 414. ADMINISTERED [address] EASON, CONTINUE TO MONITOR.
--- NOTE | 2022-06-24 19:00 | NUR ---
RN NOTE PATIENT REMAINS ALERT ORIENTED X3 VERBALLY RESPONSIVE NO SOB NOT ACUTE DISTRESS NOTED,FERRER CATH IN PLACE IV ACCESS ON GLORIA MIDLINE INTACT PATIENT KEPT CLEAN AND DRY ALL THE TIME, IV HYDRATION AT 70 ML/HR, TURN AND REPOSITION EVERY 2 HOURS,KEPT HEAD OF THE BED ELEVATED ALL THE TIME,WILL ENDORSE NEXT COMING SHIFT FOR CONTINUATION OF CARE
--- NOTE | 2022-06-24 19:30 | NUR ---
MS RN NOTES RECEIVED LYING ON BED,A/O X3,SPEAK ARMENIA,BREATHING NON LABORED.O2 IN USED TO KEEP O2 SAT ABOVE 90%.S/P RIGHT HIP ORIF ON 06 22,DRESSING,PRESSURE DRESSING INTACT AND DRY,NO ACTIVE BLEEDING NOTED.FERRER CATH IN PLACE DRAINS YELLOWISH OUTPUT.PER REPORT BLOOD SUGAT ON THE HIGH SIDE,WAS GIVEN 10 UNITS OF HUMULIN,RECHECK AT 1930 WAS 139,HOSPITALIST SOUND RANGING CREWMEMBER MADE AWARE,WITH ORDER TO RECHECK BLOOD SUGAR AT 2200.WILL CONTINUE TO MONITOR STATUS.CALL LIGHT IN REACH,NEEDS ANTICIPATED.
--- NOTE | 2022-06-24 19:59 | NUR ---
RN NOTES Messaged regarding blood sugar 439. Patient was given 10 units regular insulin @1728; rechecked sugar at 1930 as 439 but family stated they just fed the patient 20 mins prior. asked MD if need to give coverage; next BS check is at [facility]. Family aware Addendum: 06/24/22 at 2017 by AUDIE WATKINS RN per no need to cover for now; will recheck BS @[facility]
[2022-06-24 20:00] VITALS: BP 127/76
--- NOTE | 2022-06-24 22:00 | NUR ---
MS RN NOTES ACCU-CHECK BLOOD SUGAR CHECK 323MG/DL,COVERED WITH HUMULIN R 8 UNITS PER SLIDING SCALE.WILL CONTINUE TO MONITOR
[2022-06-25] VITALS (9 sets, daily range): BP systolic 101–138; BP diastolic 43–85
[2022-06-25] MEDS: IV NS 0.9% 1,000 ML IV PRN ×2 (00:09→22:35)
[2022-06-25] MEDS: POTASSIUM CHLORIDE 10 MEQ TABLET.SA PO SCH (05:43)
--- NOTE | 2022-06-25 06:38 | NUR ---
MS RN NOTES FAIRLY RESTED AT NIGHT.PAIN TOLERABLE THRU OUT SHIFT,OFFERED ONE BUT REFUSED.MORNING CARE RENDERED,TOLERATED WELL.IN NO ACUTE DISTRESS.ENDORSED TO DAY NURSE FOR RILEY.
[2022-06-25 07:12] LABS: BASOPHILS % (AUTO) 0.1 % (0.0-2.0); EOSINOPHILS % (AUTO) 1.3 % (0.0-6.0); LYMPHOCYTES # (AUTO) 0.8 K/uL (0.8-4.8); LYMPHOCYTES % (AUTO) 9.8 % (20.0-44.0); MEAN CORPUSCULAR HGB CONC 34 g/dl (31.0-36.0); MEAN CORPUSCULAR VOLUME 88 fL (82-100); MONOCYTES # (AUTO) 0.8 K/uL (0.1-1.30); MONOCYTES % (AUTO) 9.5 % (2.0-12.0); NEUTROPHILS # (AUTO) 6.5 K/uL (1.8-8.9); NEUTROPHILS % (AUTO) 79.3 % (43.0-81.0); PLATELET COUNT (AUTO) 198 K/uL (150-450); RED BLOOD CELL COUNT(AUTO) 2.27 MIL/uL (4.0-5.2); WHITE BLOOD COUNT (AUTO) 8.3 K/uL (4.3-11.0)
[2022-06-25 07:18] LABS: HEMATOCRIT 20 % (33-45)
[2022-06-25 07:19] LABS: HEMOGLOBIN 6.8 g/dL (11.5-14.8)
[2022-06-25] MEDS: BLOOD SUGAR DIAGNOSTIC 1 EACH STRIP IN SCH ×4 (07:23→22:28)
[2022-06-25] MEDS: INSULIN REGULAR, HUMAN 100 UNIT/ML 3 ML VIAL SQ PRN ×4 (07:24→22:28)
[2022-06-25] MEDS: GLUCERNA SHAKE 237 ML CAN PO SCH ×2 (07:25→16:03)
--- NOTE | 2022-06-25 07:30 | NUR ---
OPENING NOTE RECEIVED PATIENT IN BED ASLEEP BUT AROUSABLE, NO SIGNS OF IN DISTRESS, NO COMPLAINT OF PAIN, UNLABORED BREATHING ON 2L/MIN OF 02, SAFETY MEASURES ARE IN PLACED, BED IN LOW POSITION LOCKED, SIDE RAILS UPX3, CALL LIGHT WITHIN REACHED.
[2022-06-25] MEDS: HEPARIN SODIUM, PORCINE 5000 UNITS/1 ML VIAL SQ SCH ×2 (08:23→21:00)
[2022-06-25] MEDS: CARVEDILOL 12.5 MG TABLET PO SCH ×2 (08:23→16:03)
--- NOTE | 2022-06-25 08:24 | NUR ---
HOLE HEPARIN DUE TO BLEEDING ON SURGICAL SITE.
[2022-06-25 08:39] LABS: ALANINE AMINOTRANSFERASE 13 U/L (12-78); ALBUMIN 2.2 g/dL (3.4-5.0); ALKALINE PHOSPHATASE 67 U/L (46-116); ASPARTATE AMINOTRANSFERASE 25 U/L (15-37); BILIRUBIN,TOTAL 0.3 mg/dL (0.2-1.0); CALCIUM, SERUM 8.7 mg/dL (8.5-10.1); CARBON DIOXIDE 18 mmol/L (21-32); CHLORIDE 100 mmol/L (98-107); CREATININE 3.6 mg/dL (0.6-1.3); GLUCOSE 324 mg/dL (74-106); MAGNESIUM 2.3 mg/dL (1.8-2.4); PHOSPHORUS 5.5 mg/dL (2.5-4.9); POTASSIUM 4.6 mmol/L (3.5-5.1); SODIUM SERUM 133 mmol/L (136-145); TOTAL PROTEIN, SERUM 5.7 g/dL (6.4-8.2)
[2022-06-25 08:46] LABS: UREA NITROGEN, BLOOD 106 mg/dL (7-18)
[2022-06-25 13:44] LABS: NEUTROPHILS % (MANUAL) 82 (42-76)
[2022-06-25 13:45] LABS: BASOPHILS % (MANUAL) 0 % (0.0-2.0); EOSINOPHILS % (MANUAL) 0 % (0-4); LYMPHOCYTES % (MANUAL) 12 % (16-48); MONOCYTES % (MANUAL) 6 % (0-11.0)
--- NOTE | 2022-06-25 18:12 | NUR ---
BLOOD TRANSFUSION STARTED AT 1811, RECHECK VITAL SIGNS AFTER 15 MINS, NO REACTIONS NOTED, PATIENT IS IN STABLE CONDITION.
--- NOTE | 2022-06-25 18:58 | NUR ---
BLOOD TRANSFUSION INCREASE IT TO 100ML/HR.
--- NOTE | 2022-06-25 19:20 | NUR ---
CLOSING NOTE PATIENT IS IN BED AWAKE, ALERT, ORIENTEDX3, RECEIVING BLOOD TRANSFUSION, NO SIGNS OF IN DISTRESS, NO COMPLAINT OF PAIN, SAFETY MEASURES IN PLACE, BED IN LOW POSITION LOCKED, SIDE RAILS UPX3, CALL LIGHT WITHIN REACH. ENDORSED IT TO THE NIGHT RN
--- NOTE | 2022-06-25 19:30 | NUR ---
MS RN OPENING NOTE RECEIVED PT RESTING IN BED, EASILY AROUSABLE. A/O X3, YAKUT SPEAKING, ABLE TO MAKE NEEDS KNOWN. BLOOD TRANSFUSION ONGOING, NO SIGNS OF DISTRESS, NO COMPLAINT OF PAIN. IV ACCESS GLORIA ML, LAC #20G, SL, PATENT, INTACT, FLUSHING WELL. FERRER CATHETER INTACT, DRAINING CLEAR YELLOW URINE. SAFETY MEASURES IN PLACE: BED LOCKEDA ND IN LOW POSITION, SIDE RAILS UP X2, CALL LIGHT AND TRAY TABLE WITHIN REACH. WILL CONTINUE TO MONITOR AND ASSIST.
--- NOTE | 2022-06-25 21:10 | NUR ---
RN NOTE HELD HEPARIN FOR 2100 DUE LOW H/H AND ONGOING BLOOD TRANSFUSION.
--- NOTE | 2022-06-25 21:23 | NUR ---
RN NOTE BLOOD TRANSFUSION FINISHED AT 2122. PT COMFORTABLE, VITALS STABLE, NO TRANSFUSION REACTIONS NOTED.
[2022-06-25] MEDS: ACETAMINOPHEN 325 MG TABLET PO PRN (21:48)
[2022-06-26 04:00] VITALS: BP 107/39
[2022-06-26 06:33] LABS: BASOPHILS % (AUTO) 0.1 % (0.0-2.0); EOSINOPHILS % (AUTO) 2.5 % (0.0-6.0); HEMATOCRIT 24 % (33-45); HEMOGLOBIN 7.8 g/dL (11.5-14.8); LYMPHOCYTES # (AUTO) 0.7 K/uL (0.8-4.8); LYMPHOCYTES % (AUTO) 9.4 % (20.0-44.0); MEAN CORPUSCULAR HGB CONC 33 g/dl (31.0-36.0); MEAN CORPUSCULAR VOLUME 92 fL (82-100); MONOCYTES # (AUTO) 0.8 K/uL (0.1-1.30); NEUTROPHILS # (AUTO) 5.6 K/uL (1.8-8.9); PLATELET COUNT (AUTO) 206 K/uL (150-450); WHITE BLOOD COUNT (AUTO) 7.3 K/uL (4.3-11.0)
--- NOTE | 2022-06-26 06:39 | NUR ---
MS RN CLOSING NOTE PT IN BED AWAKE AT THIS TIME. A/O X3, UPPER SORBIAN/BELIZEAN SPEAKING, ABLE TO MAKE NEEDS KNOWN. ON O2 2L VIA NC, HOB ELEVATED, WITH NO SIGNS OF DISTRESS, NO COMPLAINT OF PAIN. IV ACCESS GLORIA ML, LAC #20G, SL, PATENT, INTACT, FLUSHING WELL. FERRER CATHETER INTACT, DRAINING CLEAR YELLOW URINE, TOTAL OUTPUT 750 ML. 1 PRBC TRANSFUSION LAST SHIFT, TOLERATED WELL. ALL CARE PROVIDED AND MEDS TOLERATED WELL. SAFETY MEASURES MAINTAINED: BED LOCKED AND IN LOW POSITION, SIDE RAILS UP X2, CALL LIGHT AND TRAY TABLE WITHIN REACH. WILL ENDORSE RILEY TO DAY SHIFT NURSE.
[2022-06-26 07:00] LABS: ALANINE AMINOTRANSFERASE 16 U/L (12-78); ALBUMIN 2.4 g/dL (3.4-5.0); ALKALINE PHOSPHATASE 64 U/L (46-116); ASPARTATE AMINOTRANSFERASE 21 U/L (15-37); BILIRUBIN,TOTAL 0.4 mg/dL (0.2-1.0); CALCIUM, SERUM 8.9 mg/dL (8.5-10.1); CARBON DIOXIDE 15 mmol/L (21-32); CHLORIDE 104 mmol/L (98-107); CREATININE 2.8 mg/dL (0.6-1.3); GLUCOSE 237 mg/dL (74-106); MAGNESIUM 2.4 mg/dL (1.8-2.4); PHOSPHORUS 4.8 mg/dL (2.5-4.9); POTASSIUM 4.7 mmol/L (3.5-5.1); SODIUM SERUM 135 mmol/L (136-145)
[2022-06-26 07:01] LABS: UREA NITROGEN, BLOOD 101 mg/dL (7-18)
--- NOTE | 2022-06-26 07:48 | NUR ---
RN OPENING NOTE RECEIVED PATIENT IN BED AO x 3 HUNGARIAN AND BOTSWANAN SPEAKING, ABLE TO RESPONDS PHYSICAL STIMULI. RESPIRATORY EVEN AND UNLABORED ON OXYGEN AT 2Ls. IN NO ACUTE RESPIRATORY DISTRESS OBSERVED. SKIN IS WARM TO TOUCH, KEEP CLEAN/DRY. KEPT ELEVATED HOB FOR ASPIRATION PRECAUTION AND ENSURE AIRWAY, ALSO LOWEST BED POSITIONED. BED ALARM IS ON AT ALL TIMES FOR SAFETY. CALL LIGHT WITHIN REACH, WILL CONTINUE TO MONITOR.
[2022-06-26 08:00] VITALS: BP 147/78
--- NOTE | 2022-06-26 08:01 | NUR ---
DR. SOW HAS BEEN D/C FOR THE IVF; NS AT 70ML/HR, HOWEVER, WANTS TO RESUME IVF SO, WILL RESUME IVF AND CONTINUE TO MONITOR.
[2022-06-26] MEDS: BLOOD SUGAR DIAGNOSTIC 1 EACH STRIP IN SCH ×4 (08:16→21:44)
[2022-06-26] MEDS: CARVEDILOL 12.5 MG TABLET PO SCH ×2 (08:19→17:09)
[2022-06-26] MEDS: INSULIN REGULAR, HUMAN 100 UNIT/ML 3 ML VIAL SQ PRN ×4 (08:21→21:45)
[2022-06-26] MEDS: GLUCERNA SHAKE 237 ML CAN PO SCH ×2 (08:22→17:54)
[2022-06-26] MEDS: HEPARIN SODIUM, PORCINE 5000 UNITS/1 ML VIAL SQ SCH ×2 (12:00→21:46)
[2022-06-26] MEDS ORDERED: SOD FERRIC GLUC 125 MG in IV NS 0.9% 100 ML IV SCH (14:00)
[2022-06-26 16:00] VITALS: BP 146/73
--- NOTE | 2022-06-26 18:40 | NUR ---
RN CLOSING NOTE PATIENT RESTING IN BED. IN NO ACUTE DISTRESS OBSERVED. RESPIRATORY EVEN AND UNLABORED ON OXYGEN AT 2Ls VIA NC, NO SOB OR DESATURATION NOTED. SKIN IS WARM TO TOUCH KEEP CLEAN/DRY. KEPT ELEVATED HOB FOR ENSURE AIRWAY AND ASPIRATION PRECAUTION, ALSO LOWEST BED POSITION. BED ALARM IS ON AT ALL TIMES FOR SAFETY. CALL LIGHT WITHIN REACH, WILL ENDORSE CLAY GRINDER.
--- NOTE | 2022-06-26 19:10 | NUR ---
BILLIARD TABLE ASSEMBLER closing note pt resting in bed, awake, in stable condition, breathing even and unlabored, 0 c/o pain, all due meds given per MD orders, tolerated well, all basic needs met and anticipated, bed bath rendered well, all safety measures in place, will continue to monitor
--- NOTE | 2022-06-26 19:10 | NUR ---
MANAGED CARE MANAGER opening note Received pt resting in bed, awake, A&Ox3, only turkmen speaking, breathing even and unlabored, on 02 via NC, s/p hemiarthroplasty, sx wound dressing intact and dry, GLORIA ML intact, LAC 20 GA, intact, NS infusing at 75 cc/hr, tolerating well, snell cath patent draining well, clear yellow urine noted, all safety measures noted and in place, will continue to monitor
[2022-06-26 20:00] VITALS: BP 130/34
[2022-06-26] MEDS: IV NS 0.9% 1,000 ML IV PRN (22:51)
[2022-06-27 04:00] VITALS: BP 148/44
[2022-06-27 07:12] LABS: BASOPHILS % (AUTO) 0.1 % (0.0-2.0); EOSINOPHILS % (AUTO) 2.1 % (0.0-6.0); HEMATOCRIT 23 % (33-45); HEMOGLOBIN 7.6 g/dL (11.5-14.8); LYMPHOCYTES # (AUTO) 0.7 K/uL (0.8-4.8); LYMPHOCYTES % (AUTO) 9.3 % (20.0-44.0); MEAN CORPUSCULAR HGB CONC 33 g/dl (31.0-36.0); MEAN CORPUSCULAR VOLUME 91 fL (82-100); MONOCYTES # (AUTO) 0.9 K/uL (0.1-1.30); MONOCYTES % (AUTO) 12.2 % (2.0-12.0); NEUTROPHILS # (AUTO) 5.4 K/uL (1.8-8.9); NEUTROPHILS % (AUTO) 76.3 % (43.0-81.0); PLATELET COUNT (AUTO) 239 K/uL (150-450); RED BLOOD CELL COUNT(AUTO) 2.55 MIL/uL (4.0-5.2); WHITE BLOOD COUNT (AUTO) 7.1 K/uL (4.3-11.0)
--- NOTE | 2022-06-27 07:20 | NUR ---
SPACE ENGINEER OPENING NOTES Received pt awake in bed AOX3 Farsi speaking. No complaints of pain or discomfort at this time. Pt is currently on 2L NC and tolerating it well. IV access on GLORIA midline patent and intact running IVF as prescribed NS @70 cc/hr. HOB elevated to pts comfort. Siderails up at all times x2. Call light within reach. Will continue to monitor.
[2022-06-27 07:28] LABS: CALCIUM, SERUM 8.8 mg/dL (8.5-10.1); CARBON DIOXIDE 19 mmol/L (21-32); CHLORIDE 107 mmol/L (98-107); CREATININE 2.2 mg/dL (0.6-1.3); GLUCOSE 312 mg/dL (74-106); POTASSIUM 4.5 mmol/L (3.5-5.1); SODIUM SERUM 137 mmol/L (136-145)
[2022-06-27 07:40] LABS: UREA NITROGEN, BLOOD 91 mg/dL (7-18)
[2022-06-27 08:00] VITALS: BP 147/43
[2022-06-27] MEDS: GLUCERNA SHAKE 237 ML CAN PO SCH (08:24)
[2022-06-27] MEDS: BLOOD SUGAR DIAGNOSTIC 1 EACH STRIP IN SCH ×2 (08:24→11:19)
[2022-06-27] MEDS: ACETAMINOPHEN 325 MG TABLET PO PRN (08:29)
[2022-06-27 08:30] VITALS: BP 147/43
[2022-06-27] MEDS: CARVEDILOL 12.5 MG TABLET PO SCH (08:30)
[2022-06-27] MEDS: INSULIN REGULAR, HUMAN 100 UNIT/ML 3 ML VIAL SQ PRN ×2 (08:32→11:20)
[2022-06-27] MEDS ORDERED: FURO80TA3 PO (08:56)
[2022-06-27] MEDS ORDERED: ENOX40DI SQ (08:56)
[2022-06-27] MEDS: HEPARIN SODIUM, PORCINE 5000 UNITS/1 ML VIAL SQ SCH (09:51)
--- NOTE | 2022-06-27 12:44 | NUR ---
ASSISTANT ASSOCIATE PROFESSOR NOTES Pt is cleared for d/c to [facility]. Report given to SUNDEEP Haddad. CARLOS Wing (son) called and made aware.
--- NOTE | 2022-06-27 14:40 | NUR ---
FLARE MAKER NOTES Pt picked up by [facility]. Paperwork and discharge report given to EMT. IV access taken out. Belongings brought with pt. Transferred from bed to [facility] safely.
== END 2022-06-27 15:10 | DRG 521 ==
LOC: ER 11:50 → TELE1 14:36 → MEDSG1 06-22 08:14
PROVIDERS: ADMIT Internal Medicine; ATTEND Internal Medicine
PROC: 0SRR0JZ Replacement of Right Hip Joint, Femoral Surface with Synthetic Substitute, Open Approach (ICD-10-PCS; principal; 2022-06-21)
PROC: 05HB33Z Insertion of Infusion Device into Right Basilic Vein, Percutaneous Approach (ICD-10-PCS; 2022-06-22)
PROC: 05HB33Z Insertion of Infusion Device into Right Basilic Vein, Percutaneous Approach (ICD-10-PCS; 2022-06-23)
PROC: 30233N1 Transfusion of Nonautologous Red Blood Cells into Peripheral Vein, Percutaneous Approach (ICD-10-PCS; 2022-06-25)
DX: M80.051A Age-related osteoporosis with current pathological fracture, right femur, initial encounter for fracture (principal); E43 Unspecified severe protein-calorie malnutrition; I21.A1 Myocardial infarction type 2; N17.0 Acute kidney failure with tubular necrosis; I13.0 Hypertensive heart and chronic kidney disease with heart failure and stage 1 through stage 4 chronic kidney disease, or unspecified chronic kidney disease; D62 Acute posthemorrhagic anemia; E87.0 Hyperosmolality and hypernatremia; E87.1 Hypo-osmolality and hyponatremia; N13.30 Unspecified hydronephrosis; I50.9 Heart failure, unspecified; I27.20 Pulmonary hypertension, unspecified; N18.9 Chronic kidney disease, unspecified; Z95.810 Presence of automatic (implantable) cardiac defibrillator; Z86.73 Personal history of transient ischemic attack (TIA), and cerebral infarction without residual deficits; Z85.3 Personal history of malignant neoplasm of breast; Z90.13 Acquired absence of bilateral breasts and nipples; Z79.4 Long term (current) use of insulin; Z79.899 Other long term (current) drug therapy; D63.8 Anemia in other chronic diseases classified elsewhere; E11.22 Type 2 diabetes mellitus with diabetic chronic kidney disease; E11.65 Type 2 diabetes mellitus with hyperglycemia; E88.09 Other disorders of plasma-protein metabolism, not elsewhere classified; F03.90 Unspecified dementia, unspecified severity, without behavioral disturbance, psychotic disturbance, mood disturbance, and anxiety; E11.42 Type 2 diabetes mellitus with diabetic polyneuropathy; E87.6 Hypokalemia; I34.0 Nonrheumatic mitral (valve) insufficiency; I25.10 Atherosclerotic heart disease of native coronary artery without angina pectoris; I25.2 Old myocardial infarction; I70.0 Atherosclerosis of aorta; I48.91 Unspecified atrial fibrillation; Z83.3 Family history of diabetes mellitus; Z82.49 Family history of ischemic heart disease and other diseases of the circulatory system; Z82.61 Family history of arthritis
CPT/HCPCS: 36410; 36415; 71045-TC; 73501; 73502; 73564-TC; 80048-TC; 80053-TC; 80076-TC; 82962-TC; 83735-TC; 84100-TC; 84484-TC; 85025-TC; 85730-TC; 86850-TC; 87081-TC; 93307-TC; 93971-TC; 97112-TC; 97116-TC; 97530-TC; A4217; A4223; A6209; A6253; A6403; C1776; G0378; J0690; J1170; J1644; J1650; J1815; J1940; J2270; J2405; J2704; J2765; J2916; J3010; J3490; J7030; J7050; J7060; P9016

== ENCOUNTER 2024-05-24 13:07 | Inpatient (IN) | payer MEDICARE, OTHER ==
[~2024-05-24] VITALS: Ht 160 cm; Wt 59.9 kg
[~2024-05-24 13:07] MED LIST changes: +ENOX40DI SQ
[2024-05-24 13:57] LABS: BASOPHILS % (AUTO) 0.7 % (0.0-2.0); EOSINOPHILS # (AUTO) 0.1 K/uL (0.0-0.7); HEMATOCRIT 32 % (33-45); HEMOGLOBIN 10.9 g/dL (11.5-14.8); LYMPHOCYTES # (AUTO) 1.3 K/uL (0.8-4.8); LYMPHOCYTES % (AUTO) 27.8 % (20.0-44.0); MEAN CORPUSCULAR HEMOGLOBIN 29 PG (26.0-33.0); MEAN CORPUSCULAR HGB CONC 34 g/dl (31.0-36.0); MEAN CORPUSCULAR VOLUME 87 fL (82-100); MONOCYTES # (AUTO) 0.3 K/uL (0.1-1.30); MONOCYTES % (AUTO) 7.1 % (2.0-12.0); NEUTROPHILS # (AUTO) 2.9 K/uL (1.8-8.9); NEUTROPHILS % (AUTO) 61.4 % (43.0-81.0); PLATELET COUNT (AUTO) 174 K/uL (150-450); RED BLOOD CELL COUNT(AUTO) 3.71 MIL/uL (4.0-5.2); RED CELL DISTRIBUTION WIDTH 14.8 % (11.5-15.0); WHITE BLOOD COUNT (AUTO) 4.7 K/uL (4.3-11.0)
[2024-05-24 14:02] LABS: CALCIUM, SERUM 9.6 mg/dL (8.5-10.1); CREATININE 1.6 mg/dL (0.6-1.3); POTASSIUM 4.8 mmol/L (3.5-5.1)
[2024-05-24] MEDS ORDERED: EMPA10TA PO (15:19)
[2024-05-24] MEDS ORDERED: FURO80TA85 PO (15:19)
[2024-05-24] MEDS ORDERED: ISOS30TA86 PO (15:19)
[2024-05-24] MEDS ORDERED: MELA3CAP2 PO (15:19)
[2024-05-24] MEDS ORDERED: CARV12.5 PO (15:19)
[2024-05-24] MEDS ORDERED: INSU100V7 SQ (15:19)
[2024-05-24] MEDS ORDERED: APIX2.5T PO (15:19)
[2024-05-24] MEDS ORDERED: ACET-2030 PO (15:19)
[2024-05-24] MEDS ORDERED: METF-442 PO (15:19)
[2024-05-24] MEDS ORDERED: FERR-68 PO (15:19)
[2024-05-24] MEDS ORDERED: MAG HYDROX/AL HYDROX/SIMETH 30 ML UDC PO PRN (15:30)
[2024-05-24] MEDS ORDERED: MAGNESIUM HYDROXIDE 30 ML UDC PO PRN (15:30)
[2024-05-24 15:47] LABS: INR 1.04 (0.91-1.10)
[2024-05-24] MEDS: BLOOD SUGAR DIAGNOSTIC 1 EACH STRIP VI SCH (19:00)
[2024-05-24] MEDS: DEXTROSE 50%-WATER 50 ML DISP.SYRIN IV PRN (22:46)
[2024-05-25 00:51] VITALS: BP 126/57; TEMP 97.7; O2SAT 95
[2024-05-25 04:46] VITALS: BP 166/33; TEMP 97.3; O2SAT 98
[2024-05-25 08:00] VITALS: BP 169/53; TEMP 97.9; O2SAT 100
[2024-05-25 08:28] LABS: BASOPHILS % (AUTO) 0.3 % (0.0-2.0); EOSINOPHILS # (AUTO) 0.2 K/uL (0.0-0.7); EOSINOPHILS % (AUTO) 5.3 % (0.0-6.0); HEMATOCRIT 31 % (33-45); HEMOGLOBIN 10.4 g/dL (11.5-14.8); LYMPHOCYTES # (AUTO) 1.6 K/uL (0.8-4.8); LYMPHOCYTES % (AUTO) 35.3 % (20.0-44.0); MEAN CORPUSCULAR HEMOGLOBIN 29 PG (26.0-33.0); MEAN CORPUSCULAR HGB CONC 34 g/dl (31.0-36.0); MEAN CORPUSCULAR VOLUME 86 fL (82-100); MONOCYTES # (AUTO) 0.4 K/uL (0.1-1.30); MONOCYTES % (AUTO) 8.3 % (2.0-12.0); NEUTROPHILS # (AUTO) 2.3 K/uL (1.8-8.9); NEUTROPHILS % (AUTO) 50.8 % (43.0-81.0); PLATELET COUNT (AUTO) 168 K/uL (150-450); RED BLOOD CELL COUNT(AUTO) 3.62 MIL/uL (4.0-5.2); RED CELL DISTRIBUTION WIDTH 14.4 % (11.5-15.0); WHITE BLOOD COUNT (AUTO) 4.5 K/uL (4.3-11.0)
[2024-05-25 08:42] LABS: CALCIUM, SERUM 9.2 mg/dL (8.5-10.1); CREATININE 1.3 mg/dL (0.6-1.3); PHOSPHORUS 3.6 mg/dL (2.5-4.9); POTASSIUM 3.9 mmol/L (3.5-5.1)
[2024-05-25] MEDS: EMPAGLIFLOZIN 10 MG TABLET PO SCH (09:00)
[2024-05-25] MEDS: BENAZEPRIL HCL 20 MG TABLET PO SCH (09:05)
[2024-05-25] MEDS: FUROSEMIDE 40 MG TABLET PO SCH (09:05)
[2024-05-25] MEDS: ISOSORBIDE MONONITRATE (30MG) 30 MG TAB.SR.24H PO SCH (09:05)
[2024-05-25] MEDS: FERROUS SULFATE (325 MG) 325 MG/TAB TABLET PO SCH (09:06)
[2024-05-25 12:00] VITALS: BP 163/41; TEMP 97.7; O2SAT 98
[2024-05-25] MEDS: *INSULIN REGULAR(HUMULIN R)HUM 100 UNIT/ML VIAL SQ PRN (12:09)
[2024-05-25 16:00] VITALS: BP 150/49; TEMP 97.9; O2SAT 99
[2024-05-25] MEDS: INSULIN REGULAR, HUMAN 100 UNIT/ML 3 ML VIAL SQ PRN (17:42)
[2024-05-25 20:00] VITALS: BP 117/51; TEMP 98.2; O2SAT 96
[2024-05-26] VITALS (7 sets, daily range): BP systolic 106–164; BP diastolic 47–88; TEMP 97.3–98.1; O2SAT 18–100
[2024-05-26 07:35] LABS: BASOPHILS % (AUTO) 0.3 % (0.0-2.0); EOSINOPHILS # (AUTO) 0.2 K/uL (0.0-0.7); EOSINOPHILS % (AUTO) 3.8 % (0.0-6.0); HEMATOCRIT 31 % (33-45); HEMOGLOBIN 10.9 g/dL (11.5-14.8); LYMPHOCYTES # (AUTO) 1.2 K/uL (0.8-4.8); LYMPHOCYTES % (AUTO) 25.9 % (20.0-44.0); MEAN CORPUSCULAR HEMOGLOBIN 30 PG (26.0-33.0); MEAN CORPUSCULAR HGB CONC 35 g/dl (31.0-36.0); MEAN CORPUSCULAR VOLUME 86 fL (82-100); MONOCYTES # (AUTO) 0.4 K/uL (0.1-1.30); MONOCYTES % (AUTO) 8.1 % (2.0-12.0); NEUTROPHILS % (AUTO) 61.9 % (43.0-81.0); PLATELET COUNT (AUTO) 177 K/uL (150-450); RED BLOOD CELL COUNT(AUTO) 3.65 MIL/uL (4.0-5.2); RED CELL DISTRIBUTION WIDTH 14.7 % (11.5-15.0); WHITE BLOOD COUNT (AUTO) 4.8 K/uL (4.3-11.0)
[2024-05-26 07:37] LABS: ALANINE AMINOTRANSFERASE 26 U/L (12-78); ALBUMIN 3.6 g/dL (3.4-5.0); ALKALINE PHOSPHATASE 82 U/L (46-116); ASPARTATE AMINOTRANSFERASE 24 U/L (15-37); BILIRUBIN,TOTAL 0.3 mg/dL (0.2-1.0); CALCIUM, SERUM 9.3 mg/dL (8.5-10.1); CARBON DIOXIDE 24 mmol/L (21-32); CHLORIDE 109 mmol/L (98-107); CREATININE 1.5 mg/dL (0.6-1.3); GLUCOSE 273 mg/dL (74-106); MAGNESIUM 2.2 mg/dL (1.8-2.4); PHOSPHORUS 4.6 mg/dL (2.5-4.9); POTASSIUM 4.2 mmol/L (3.5-5.1); SODIUM SERUM 142 mmol/L (136-145); UREA NITROGEN, BLOOD 64 mg/dL (7-18)
[2024-05-26 07:41] LABS: CREATINE KINASE, TOTAL 40 U/L (26-192)
[2024-05-26] MEDS: ACETAMINOPHEN 325 MG TABLET PO PRN (13:07)
[2024-05-26 20:37] LABS: APPEARANCE,URINE CLEAR (CLEAR); BILIRUBIN,URINE NEGATIVE (NEGATIVE); BLOOD, URINE 1+ Ery/uL (NEGATIVE); COLOR,URINE YELLOW (YELLOW); KETONES,URINE NEGATIVE (NEGATIVE); LEUKOCYTE ESTERASE ,URINE 1+ (NEGATIVE); NITRITE, URINE POSITIVE (NEGATIVE); PH,URINE 5.5 (5.0-8.0); PROTEIN,URINE 1+ mg/dl (NEGATIVE); UGLUCOSE 3+ mg/dL (NEGATIVE); UROBILINOGEN,URINE 0.2 EU/dL (0.2)
[2024-05-26 20:48] LABS: ADD URINE CULTURE YES; BACTERIA,URINE 3+ /HPF (None Seen)
[2024-05-26 21:05] LABS: EOSINOPHIL,URINE None Seen
[2024-05-26] MEDS ORDERED: Medication Not On Formulary EA (Melatonin 6 MG) PO SCH (22:00)
[2024-05-27] VITALS (9 sets, daily range): BP systolic 106–151; BP diastolic 30–88; TEMP 97.5–98.4; O2SAT 97–98
[2024-05-27 07:03] LABS: BASOPHILS % (AUTO) 0.3 % (0.0-2.0); EOSINOPHILS # (AUTO) 0.3 K/uL (0.0-0.7); EOSINOPHILS % (AUTO) 5.1 % (0.0-6.0); HEMATOCRIT 30 % (33-45); HEMOGLOBIN 10.2 g/dL (11.5-14.8); LYMPHOCYTES # (AUTO) 1.7 K/uL (0.8-4.8); LYMPHOCYTES % (AUTO) 32.8 % (20.0-44.0); MEAN CORPUSCULAR HEMOGLOBIN 29 PG (26.0-33.0); MEAN CORPUSCULAR HGB CONC 33 g/dl (31.0-36.0); MEAN CORPUSCULAR VOLUME 86 fL (82-100); MONOCYTES # (AUTO) 0.5 K/uL (0.1-1.30); MONOCYTES % (AUTO) 9.7 % (2.0-12.0); NEUTROPHILS # (AUTO) 2.7 K/uL (1.8-8.9); NEUTROPHILS % (AUTO) 52.1 % (43.0-81.0); PLATELET COUNT (AUTO) 171 K/uL (150-450); RED BLOOD CELL COUNT(AUTO) 3.54 MIL/uL (4.0-5.2); RED CELL DISTRIBUTION WIDTH 14.6 % (11.5-15.0); WHITE BLOOD COUNT (AUTO) 5.2 K/uL (4.3-11.0)
[2024-05-27 07:06] LABS: CALCIUM, SERUM 8.9 mg/dL (8.5-10.1); CREATININE 1.5 mg/dL (0.6-1.3); MAGNESIUM 2.2 mg/dL (1.8-2.4); PHOSPHORUS 4.7 mg/dL (2.5-4.9); POTASSIUM 4.2 mmol/L (3.5-5.1)
[2024-05-27] MEDS: CEFTRIAXONE 1 G in IV D5W 50 ML IV SCH (08:10)
[2024-05-27 09:07] LABS: PTH, INTACT 74 pg/mL (15-65)
[2024-05-27] MEDS ORDERED: LIDOCAINE HCL/MPF 1% 30 ML VIAL IJ ONE (09:28)
[2024-05-27] MEDS ORDERED: ACETAMINOPHEN 325 MG TABLET ONE (09:46)
[2024-05-27] MEDS ORDERED: FENTANYL PF 100MCG/2ML AMPUL ONE (09:58)
[2024-05-27] MEDS: ACETAMINOPHEN 650 MG/20.3 ML UDC NG ONE (10:00)
[2024-05-27] MEDS ORDERED: ONDANSETRON HCL/PF 4 MG/2 ML VIAL ONE (11:19)
[2024-05-27] MEDS: ONDANSETRON HCL/PF 4 MG/2 ML VIAL IVP PRN (11:21)
[2024-05-28] VITALS: BP 120/40; TEMP 98.2; O2SAT 98
[2024-05-28 03:58] VITALS: BP 128/47; TEMP 98.4; O2SAT 98
[2024-05-28 04:00] VITALS: BP 128/47; TEMP 98.1; O2SAT 98
[2024-05-28 06:49] LABS: BASOPHILS % (AUTO) 0.3 % (0.0-2.0); EOSINOPHILS # (AUTO) 0.3 K/uL (0.0-0.7); HEMATOCRIT 31 % (33-45); HEMOGLOBIN 10.4 g/dL (11.5-14.8); LYMPHOCYTES # (AUTO) 1.8 K/uL (0.8-4.8); LYMPHOCYTES % (AUTO) 28.1 % (20.0-44.0); MEAN CORPUSCULAR HEMOGLOBIN 29 PG (26.0-33.0); MEAN CORPUSCULAR HGB CONC 34 g/dl (31.0-36.0); MEAN CORPUSCULAR VOLUME 86 fL (82-100); MONOCYTES # (AUTO) 0.5 K/uL (0.1-1.30); MONOCYTES % (AUTO) 7.7 % (2.0-12.0); NEUTROPHILS # (AUTO) 3.8 K/uL (1.8-8.9); NEUTROPHILS % (AUTO) 59.9 % (43.0-81.0); PLATELET COUNT (AUTO) 187 K/uL (150-450); RED BLOOD CELL COUNT(AUTO) 3.59 MIL/uL (4.0-5.2); RED CELL DISTRIBUTION WIDTH 14.5 % (11.5-15.0); WHITE BLOOD COUNT (AUTO) 6.3 K/uL (4.3-11.0)
[2024-05-28 07:24] LABS: CALCIUM, SERUM 9.5 mg/dL (8.5-10.1); CREATININE 1.5 mg/dL (0.6-1.3); MAGNESIUM 2.5 mg/dL (1.8-2.4); PHOSPHORUS 4.8 mg/dL (2.5-4.9); POTASSIUM 4.2 mmol/L (3.5-5.1)
[2024-05-28 07:30] VITALS: BP 117/60; TEMP 97.5; O2SAT 96
[2024-05-28 08:12] VITALS: BP 117/60
[2024-05-28] MEDS ORDERED: CEPH-570 PO (11:29)
[2024-05-28] MEDS: INSULIN REGULAR, HUMAN 100 UNIT/ML 10 ML VIAL SQ ONE (12:16)
== END 2024-05-28 13:45 | disposition home health service (06) | DRG 258 ==
LOC: ER 13:10 → TRANSITION 17:11 → TELE 20:41
PROVIDERS: ATTEND Nurse Practitioner Acute Care
PROC: 0JH607Z Insertion of Cardiac Resynchronization Pacemaker Pulse Generator into Chest Subcutaneous Tissue and Fascia, Open Approach (ICD-10-PCS; 2024-05-27)
PROC: 0JPT0PZ Removal of Cardiac Rhythm Related Device from Trunk Subcutaneous Tissue and Fascia, Open Approach (ICD-10-PCS; principal; 2024-05-27 10:00)
DX: T82.897A Other specified complication of cardiac prosthetic devices, implants and grafts, initial encounter (principal); G93.41 Metabolic encephalopathy; E87.0 Hyperosmolality and hypernatremia; N17.9 Acute kidney failure, unspecified; I13.0 Hypertensive heart and chronic kidney disease with heart failure and stage 1 through stage 4 chronic kidney disease, or unspecified chronic kidney disease; N13.30 Unspecified hydronephrosis; Y71.8 Miscellaneous cardiovascular devices associated with adverse incidents, not elsewhere classified; I48.91 Unspecified atrial fibrillation; D64.9 Anemia, unspecified; E83.9 Disorder of mineral metabolism, unspecified; N18.9 Chronic kidney disease, unspecified; Z83.3 Family history of diabetes mellitus; Z86.73 Personal history of transient ischemic attack (TIA), and cerebral infarction without residual deficits; Z85.3 Personal history of malignant neoplasm of breast; Z90.11 Acquired absence of right breast and nipple; E11.22 Type 2 diabetes mellitus with diabetic chronic kidney disease; I50.9 Heart failure, unspecified; F03.90 Unspecified dementia, unspecified severity, without behavioral disturbance, psychotic disturbance, mood disturbance, and anxiety; Y83.8 Other surgical procedures as the cause of abnormal reaction of the patient, or of later complication, without mention of misadventure at the time of the procedure; Y92.009 Unspecified place in unspecified non-institutional (private) residence as the place of occurrence of the external cause; I25.10 Atherosclerotic heart disease of native coronary artery without angina pectoris; E11.40 Type 2 diabetes mellitus with diabetic neuropathy, unspecified; M81.0 Age-related osteoporosis without current pathological fracture; Z79.4 Long term (current) use of insulin
CPT/HCPCS: 36415; 71045-TC; 76770-TC; 80048-TC; 80053-TC; 81001; 82550-TC; 82962-TC; 83735-TC; 83970; 84100-TC; 84155; 84165; 85025-TC; 85610-TC; 87081-TC; 87086-TC; 93970-TC; A4223; G0378; J0696; J1815; J2405; J2704; J3010; J3490; J7030; J7050; J7060